=== PATIENT | female | born 1980 | race Caucasian/White ===

== ENCOUNTER 2016-09-01 07:02 | Day surgery (SDC) | payer BC, OTHER ==
[~2016-09-01 07:02] MED LIST: Lactated Ringers 1,000 ML IV SCH; Lidocaine 1%/Sod Bicarbonate in NS 8.4% 1 ML Syringe IV PRN; Sodium Chloride 0.9% 10 ML Syringe FLUSH PRN
[2016-09-01] MEDS ORDERED: Propofol 200 MG/20 ML SDV ONE (07:43)
[2016-09-01] MEDS ORDERED: fentaNYL 100 MCG/2 ML SDV ONE (07:44)
[2016-09-01] MEDS ORDERED: Midazolam 1 MG/ML 2 ML SDV ONE (07:44)
--- NOTE | 2016-09-01 07:47 | PCM.PREANE ---
Preanesthetic Assessment - Procedure Proposed Procedure: Diagnostic Colonoscopy - Anesthesia/Transfusion/Family Hx Anesthesia History: Prior Anesthesia Without Reaction Family History of Anesthesia Reaction: No - Review of Systems General: No Symptoms Pulmonary: No Symptoms Cardiovascular: No Symptoms Gastrointestinal: No symptoms Neurological: No Symptoms Other: Reports: None - Physical Assessment NPO Status Date: 08/31/16 NPO Status Time: 22:00 O2 Sat by Pulse Oximetry: 99 Respiratory Rate: 16 Vital Signs: Last Vital Signs Temp 36.8 C 09/01/16 07:10 Pulse 71 09/01/16 07:10 Resp 16 09/01/16 07:10 BP 112/82 09/01/16 07:10 Pulse Ox 99 09/01/16 07:10 Height: 1.7 m Weight: 54.431 kg ASA Class: 2 Mental Status: Alert & Oriented x3 Airway Class: Mallampati = 2 Dentition: Reports: Dentures (upper), Edentulous, Broken Tooth/Teeth (very poor dentition lower), Missing Tooth/Teeth, Caries Thyro-Mental Finger Breadths: 3 Mouth Opening Finger Breadths: 3 ROM/Head Extension: Full Lungs: Clear to auscultation, Normal respiratory effort Cardiovascular: Regular Rate, Regular Rhythm, No Murmurs - Lab Values: Labs from [facility] CMP is essentially normal except for a mildly elevated glucose at 105mg/dl. unknown if labs were fasting CBC WBC - 8.1 Hgb - 16.4 HCT - 48.9 PLT - 166 TSH - 1.099 - Allergies Allergies/Adverse Reactions: Allergies Allergy/AdvReac Type Severity Reaction Status Date / Time amoxicillin Allergy Itching Verified 08/31/16 13:09 Penicillins Allergy Itching Verified 08/31/16 13:09 venom-honey bee Allergy Swelling Verified 08/31/16 13:09 [bee venom (honey bee)] - Blood Blood Available: No - Anesthesia Plan Beta Michael: Metoprolol Med Last Dose Date: 09/01/16 Med Last Dose Time: 06:00 - Acknowledgements Anesthesia Type Planned: MAC Pt an Appropriate Candidate for the Planned Anesthesia: Yes Alternatives and Risks of Anesthesia Discussed w Pt/Guardian: Yes Pt/Guardian Understands and Agrees with Anesthesia Plan: Yes PreAnesthesia Questionnaire Other HEENT History: upper denture Cardiovascular History: Reports: None Respiratory History: Reports: None Gastrointestinal History: Reports: Chronic Constipation, Chronic Diarrhea, GERD Other Gastrointestinal History: rectal prolapse, abdominal pain,ventral hernia Genitourinary History: Reports: Other (See Below) Other Genitourinary History: complex ovarian cyst, pelvic floor dysfunction 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: , Other (See Below) Other OB/BYN History: Musculoskeletal History: Reports: Arthritis, Osteoarthritis, Other (See Below) Neurological History: Reports: None Psychiatric History: Reports: Anxiety, Depression Endocrine/Metabolic History: Reports: Other (See Below) Other Endocrine/Metabolic History: adrenal incidentaloma Hematologic History: Reports: None Immunologic History: Reports: None Oncologic (Cancer) History: Reports: None Dermatologic History: Reports: None - Past Surgical History Head Surgeries/Procedures: Reports: None HEENT Surgical History: Reports: Tonsillectomy, Other (See Below) Other HEENT Surgeries/Procedures: myringotomy GI Surgical History: Reports: Other (See Below) Other GI Surgeries/Procedures: incisional hernia repair Female Surgical History: Reports: Section, Hysterectomy, Oophorectomy Other Musculoskeletal Surgeries/Procedures:: neck surgery-disk replacement C5-C5 - SUBSTANCE USE Smoking Status *Q: Current Every Day Smoker (1/2 ppd down from 1-2 ppd for 25 yrs) Tobacco Use Within Last Twelve Months: Cigarettes Second Hand Smoke Exposure: Yes Days Per Week of Alcohol Use: 0 Recreational Drug Use History: No - HOME MEDS Home Medications: Home Meds Cyanocobalamin (Vitamin B-12) [B-12] 2,500 mcg SL DAILY 02/09/15 [History] Docusate Sodium [Colace] 100 mg PO BID #50 cap 02/11/15 [Rx] Ibuprofen [Motrin] 200 - 600 mg PO Q6H PRN #50 tablet 02/11/15 [Rx] LORazepam [LORazepam] 0.5 mg PO BID PRN 08/31/16 [History] Metoprolol Tartrate [Metoprolol Tartrate] 25 mg PO DAILY 08/31/16 [History] Sertraline HCl [Sertraline HCl] 50 mg PO DAILY 08/31/16 [History] - CURRENT (IN HOUSE) MEDS Current Meds: Current Medications Lactated Ringer's (Ringers, Lactated) 1,000 mls @ 125 mls/hr IV ASDIRECTED MOY Last Admin: 09/01/16 07:25 Dose: 125 mls/hr Lidocaine/Sodium Bicarbonate (Buffered Lidocaine 1% In Ns 8.4%) 0.25 ml IV ONETIME PRN PRN Reason: Prior to IV Start Last Admin: 09/01/16 07:25 Dose: 0.25 ml Sodium Chloride (Saline Flush) 10 ml FLUSH ASDIRECTED PRN PRN Reason: Keep Vein Open Discontinued Medications Fentanyl (Sublimaze) Confirm Administered Dose 100 mcg .ROUTE .STK-MED ONE Stop: 09/01/16 07:45 Midazolam HCl (Versed 1 Mg/Ml) Confirm Administered Dose 2 mg .ROUTE .STK-MED ONE Stop: 09/01/16 07:45 Propofol (Diprivan 20 Ml) Confirm Administered Dose 200 mg .ROUTE .STK-MED ONE Stop: 09/01/16 07:44
[2016-09-01 08:40] VITALS: BP 118/69
--- NOTE | 2016-09-01 08:43 | PCM.OPNOTE ---
- General Post-Op/Procedure Note Date of Surgery/Procedure: 09/01/16 Operative Procedure(s): Colonoscopy with rectal polypectomy Findings: 5 mm rectal polyp, no mass lesions seen Pre Op Diagnosis: 1. Colon inertia. 2. Rectal prolapse Post-Op Diagnosis: 1. Diminutive rectal polyp Anesthesia Technique: MAC, Moderate sedation Primary Surgeon: Elbert Blank Pathology: Small rectal polyp EBL in mLs: 0 Complications: None Condition: Good Free Text/Narrative:: After adequate IV sedation and analgesia the patient placed on her left side. Perianal inspection revealed no prolapse. Digital rectal examination revealed a slightly patulous anus. A lubricated colonoscope was then inserted into the rectum and advanced to the cecum without difficulty. The colon was capacious. The bowel preparation was excellent. The cecum, right colon, transverse and descending colons were endoscopically normal with no mass lesions or inflammatory changes seen. The sigmoid was unremarkable as well. Within the proximal rectum there was a 5 mm polyp which I removed with cold forceps. In the retroflexed view there was no rectal pathology seen. Air was removed as I finished the procedure which she tolerated well. Tray Drier Operator photographs were taken for the patient and for the record.
--- NOTE | 2016-09-01 08:50 | PCM48HPAN ---
Post Anesthesia Note - EVALUATION WITHIN 48HRS OF ANESTHETIC Vital Signs in Normal Range: Yes Patient Participated in Evaluation: Yes Respiratory Function Stable: Yes Airway Patent: Yes Cardiovascular Function Stable: Yes Hydration Status Stable: Yes Pain Control Satisfactory: Yes Nausea and Vomiting Control Satisfactory: Yes Mental Status Recovered: Yes
== END 2016-09-01 08:55 | disposition home or self-care (01) ==
LOC: JD.SDS 07:02
PROVIDERS: ATTEND Surgery
PROC: 0DBP8ZZ Excision of Rectum, Via Natural or Artificial Opening Endoscopic (ICD-10-PCS; principal; 2016-09-01)
DX: K62.1 Rectal polyp (principal); K62.3 Rectal prolapse; Z88.0 Allergy status to penicillin; Z91.030 Bee allergy status; M19.90 Unspecified osteoarthritis, unspecified site; F41.9 Anxiety disorder, unspecified; F32.9 Major depressive disorder, single episode, unspecified; F17.210 Nicotine dependence, cigarettes, uncomplicated; M81.0 Age-related osteoporosis without current pathological fracture; M17.0 Bilateral primary osteoarthritis of knee; Z98.1 Arthrodesis status; Z90.89 Acquired absence of other organs; Z90.710 Acquired absence of both cervix and uterus; Z90.79 Acquired absence of other genital organ(s); Z98.890 Other specified postprocedural states; Z79.899 Other long term (current) drug therapy
CPT/HCPCS: 45380; J3010; J7120; 00810; J2250; J2704

== ENCOUNTER 2016-09-04 07:17 | Inpatient (IN) | payer BC, OTHER ==
[~2016-09-04 07:17] MED LIST changes: +Bupivacaine 0.5%/EPINEPHrine 1:200,000 50 ML MDV ONE; +Lidocaine 1% with EPINEPHrine 1:100,000 20 ML MDV ONE; -Lidocaine 1%/Sod Bicarbonate in NS 8.4% 1 ML Syringe IV PRN; +Lidocaine 1%/Sod Bicarbonate in NS 8.4% 1 ML Syringe PRN
[2016-09-04] MEDS ORDERED: Propofol 200 MG/20 ML SDV ONE (07:36)
[2016-09-04] MEDS ORDERED: Lidocaine 1% 4 ML ONE ×2 (07:36→07:50)
[2016-09-04] MEDS ORDERED: fentaNYL 250 MCG/5 ML SDV ONE (07:36)
[2016-09-04] MEDS ORDERED: Midazolam 1 MG/ML 2 ML SDV ONE (07:36)
[2016-09-04] MEDS ORDERED: Rocuronium 50 MG/5 ML Vial ONE (07:50)
--- NOTE | 2016-09-04 07:59 | PCM.PREANE ---
Preanesthetic Assessment - Procedure Proposed Procedure: rectopexy with possible sigmoid resection, open david, open umbilical hernia repair - Anesthesia/Transfusion/Family Hx Anesthesia History: Prior Anesthesia Without Reaction Family History of Anesthesia Reaction: No Transfusion History: No Prior Transfusion(s) Intubation History: Unknown - Review of Systems General: No Symptoms Pulmonary: No Symptoms Cardiovascular: No Symptoms Gastrointestinal: No symptoms Neurological: No Symptoms Other: Reports: None - Physical Assessment NPO Status Date: 09/03/16 NPO Status Time: 13:00 Pulse: 69 O2 Sat by Pulse Oximetry: 99 Respiratory Rate: 16 Blood Pressure: 126/82 Temperature: 36.7 C Height: 1.7 m Weight: 54.431 kg ASA Class: 2 Mental Status: Alert & Oriented x3 Airway Class: Mallampati = 1 Dentition: Reports: Dentures (upper dentures ), Missing Tooth/Teeth, Caries ( poor dentition ) Thyro-Mental Finger Breadths: 3 Mouth Opening Finger Breadths: 5 ROM/Head Extension: Full Lungs: Clear to auscultation, Normal respiratory effort Cardiovascular: Regular Rate, Regular Rhythm - Lab Values: reviewed - Allergies Allergies/Adverse Reactions: Allergies Allergy/AdvReac Type Severity Reaction Status Date / Time amoxicillin Allergy Itching Verified 09/03/16 16:14 Penicillins Allergy Itching Verified 09/03/16 16:14 venom-honey bee Allergy Swelling Verified 09/03/16 16:14 [bee venom (honey bee)] - Blood Blood Available: Yes - Anesthesia Plan Pre-Op Medication Ordered: None Beta Michael: Metoprolol Med Last Dose Date: 09/04/16 Med Last Dose Time: 06:00 - Acknowledgements Anesthesia Type Planned: General Anesthesia Pt an Appropriate Candidate for the Planned Anesthesia: Yes Alternatives and Risks of Anesthesia Discussed w Pt/Guardian: Yes Pt/Guardian Understands and Agrees with Anesthesia Plan: Yes PreAnesthesia Questionnaire Other HEENT History: upper denture Cardiovascular History: Reports: None Other Cardiovascular History: tachycardia Respiratory History: Reports: None Gastrointestinal History: Reports: Chronic Constipation, Chronic Diarrhea, GERD Other Gastrointestinal History: ventral hernia, abdominal pain, maldigestion syndrome Genitourinary History: Reports: Other (See Below) Other Genitourinary History: rectal prolapse, repair of vaginal cuff 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: , Other (See Below) Other OB/BYN History: ovarian cyst, pelvic jaxson dysfunction, rectal prolapse, hysterectomy in past Musculoskeletal History: Reports: Arthritis, Osteoarthritis, Osteoporosis Other Musculoskeletal History: R knee pain Neurological History: Reports: None Psychiatric History: Reports: Anxiety, Depression Endocrine/Metabolic History: Reports: Other (See Below) Other Endocrine/Metabolic History: adrenal incidentaloma Hematologic History: Reports: None Immunologic History: Reports: None Oncologic (Cancer) History: Reports: None Dermatologic History: Reports: None - Past Surgical History Head Surgeries/Procedures: Reports: None HEENT Surgical History: Reports: Tonsillectomy Cardiovascular Surgical History: Reports: None GI Surgical History: Reports: Colonoscopy, EGD Female Surgical History: Reports: Section, Hysterectomy, Oophorectomy Other Musculoskeletal Surgeries/Procedures:: neck surgery-disk replacement - SUBSTANCE USE Smoking Status *Q: Current Every Day Smoker Tobacco Use Within Last Twelve Months: Cigarettes (1/2 pack) Second Hand Smoke Exposure: Yes Days Per Week of Alcohol Use: 0 Recreational Drug Use History: No - HOME MEDS Home Medications: Home Meds Cyanocobalamin (Vitamin B-12) [B-12] 2,500 mcg SL DAILY 02/09/15 [History] Docusate Sodium [Colace] 100 mg PO BID #50 cap 02/11/15 [Rx] Ibuprofen [Motrin] 200 - 600 mg PO Q6H PRN #50 tablet 02/11/15 [Rx] LORazepam 0.5 mg PO BID PRN 08/31/16 [History] Metoprolol Tartrate 12.5 mg PO BID 08/31/16 [History] Sertraline HCl 50 mg PO DAILY 08/31/16 [History] Calcium Carbonate [Tums Ultra] 1,250 mg PO DAILY 09/04/16 [History] EPINEPHrine [Epipen] 0.3 mg IM ASDIRECTED PRN 09/04/16 [History] Multivitamin [Multivitamins] 1 cap PO DAILY 09/04/16 [History] Sennosides [Laxative] 25 mg PO BID 09/04/16 [History] - CURRENT (IN HOUSE) MEDS Current Meds: Current Medications Lactated Ringer's (Ringers, Lactated) 1,000 mls @ 125 mls/hr IV ASDIRECTED MOY Stop: 09/04/16 23:00 Lidocaine/Sodium Bicarbonate (Buffered Lidocaine 1% In Ns 8.4%) 0.25 ml .XX ONETIME PRN PRN Reason: Prior to IV Start Stop: 09/04/16 18:00 Sodium Chloride (Saline Flush) 10 ml FLUSH ASDIRECTED PRN PRN Reason: Keep Vein Open Stop: 09/04/16 18:00 Discontinued Medications Bupivacaine HCl/Epinephrine Bitart (Marcaine 0.5%/Epinephrine 1:200,000) Confirm Administered Dose 50 ml .ROUTE .STK-MED ONE Stop: 09/04/16 07:12 Fentanyl (Sublimaze) Confirm Administered Dose 250 mcg .ROUTE .STK-MED ONE Stop: 09/04/16 07:37 Lidocaine HCl (Xylocaine-Mpf 1%) Confirm Administered Dose 4 mls @ as directed .ROUTE .STK-MED ONE Stop: 09/04/16 07:37 Lidocaine HCl (Xylocaine-Mpf 1%) Confirm Administered Dose 4 mls @ as directed .ROUTE .STK-MED ONE Stop: 09/04/16 07:51 Lidocaine/Epinephrine (Xylocaine 1% With Epinephrine 1:100,000) Confirm Administered Dose 20 ml .ROUTE .STK-MED ONE Stop: 09/04/16 07:12 Midazolam HCl (Versed 1 Mg/Ml) Confirm Administered Dose 2 mg .ROUTE .STK-MED ONE Stop: 09/04/16 07:37 Propofol (Diprivan 20 Ml) Confirm Administered Dose 800 mg .ROUTE .STK-MED ONE Stop: 09/04/16 07:37 Rocuronium [place] (Zemuron) Confirm Administered Dose 50 mg .ROUTE .STK-MED ONE Stop: 09/04/16 07:51
[2016-09-04] MEDS ORDERED: cefOXitin 2 GM in Premix Bag 1 BAG IV ONE (08:15)
[2016-09-04] MEDS ORDERED: ePHEDrine/Normal Saline 25 MG/5 ML Syringe ONE (08:40)
[2016-09-04] MEDS ORDERED: Ondansetron 4 MG/2 ML SDV IVPUSH PRN ×2 (08:42→12:24)
[2016-09-04] MEDS ORDERED: diphenhydrAMINE 50 MG/ML SDV IVPUSH PRN ×2 (08:42→12:24)
[2016-09-04] MEDS ORDERED: HYDROmorphone 1 MG/ML Syringe ONE ×2 (08:47→10:48)
[2016-09-04] MEDS ORDERED: Lactated Ringers 1,000 ML ONE ×2 (08:55→10:46)
[2016-09-04] MEDS ORDERED: fentaNYL 100 MCG/2 ML SDV IVPUSH PRN ×2 (09:00→12:24)
[2016-09-04] MEDS ORDERED: HYDROmorphone 0.5 MG/0.5 ML Syringe IVPUSH PRN (09:00)
[2016-09-04] MEDS ORDERED: Ketamine 500 mg/10 ML MDV ONE (09:02)
[2016-09-04] MEDS ORDERED: Dexamethasone 4 MG/ML 5 ML MDV ONE (09:30)
[2016-09-04] MEDS ORDERED: Ketorolac 30 MG/ML SDV ONE (09:30)
[2016-09-04] MEDS ORDERED: Ondansetron 4 MG/2 ML SDV ONE (09:30)
[2016-09-04] MEDS ORDERED: Neostigmine Methylsulfate 1 MG/ML 5 ML Syringe ONE (10:48)
[2016-09-04] MEDS ORDERED: Ketorolac 30 MG/ML SDV IM PRN ×2 (11:55→16:00)
--- NOTE | 2016-09-04 12:01 | PCM.OPNOTE ---
- General Post-Op/Procedure Note Date of Surgery/Procedure: 09/04/16 Operative Procedure(s): 1. rectopexy. 2. sigmoid resection with [id number] stapled anastomosis. 3. cholecytectomy. 4. repair of an umbilical hernia Findings: redundant sigmoid colon, 0.5 cm umbilical defect, 4 cm right ovarian cyst, normal-appearing gallbladder with no stones Pre Op Diagnosis: 1. chronic constipation. 2. rectal prolapse. 3. biliary colic secondary to cholelithiasis. 4. symptomatic umbilical hernia Post-Op Diagnosis: Same Anesthesia Technique: General ET tube Primary Surgeon: Elbert Blank Pathology: 1. Sigmoid colon 2. Gallbladder and contents EBL in mLs: 25 Complications: None Condition: Good Free Text/Narrative:: After adequate general endotracheal tube anesthesia was obtained the patient's abdomen was prepped and draped in the usual fashion for aN abdominal/pelvic procedure. The midline incision was made with a 10 blade from just above the symphysis pubis to the midepigastrium. The Balfor retractor was placed. She was placed in Trendelenburg. The small bowel was packed into the upper abdomen. The sigmoid colon was floppy. It extended into the right lower quadrant. There was a right ovarian cyst which was previously known. The patient is status post a hysterectomy and so there were some adhesions within the pelvis. Especially between the right ovarian cyst and the peritoneum. The sigmoid colon was mobilized by taking down the white line of Toldt along its medial aspect. The left ureter was identified and displaced. I entered the retrorectal space at the sacral promontory with Metzenbaums scissors. I then dissected the mesorectum down to the pelvic floor dividing the left lateral ligaments. I then incised the peritoneum along the right side of the sigmoid mesentery. I dissected down to the pelvic floor along the right side after displacing the right ureter. The posterior rectal ligament was divided as well. I incised the peritoneum anteriorly. I then the anterior rectum away from the vagina. This dissection was also taken down to the pelvic floor and at this point I had a circumferential mobilization of the rectum. The linear stapler was used to transect the sigmoid colon in 2 areas. I then performed a side-to- side stapled anastomosis, with handsewn closure of the staple gun insertion sites using 3-0 running Vicryl and interrupted 3-0 silk Lemberts. I then tacked the rectal peritoneum and mesorectum to the sacral promontory with 2-0 Prolene on the left side and I performed the tacking with a 2-0 Prolene on the right side. There was a careful curve of the rectum into the sacral hollow. There was one small vein between the vagina and the anterior rectum which required a clip. Otherwise the dissection was essentially bloodless. The patient was then placed in reverse Trendelenburg. I had to extend the midline incision another 3 cm to remove the gallbladder. The dome of the gallbladder and Marquez's pouch was grasped with clamps. I used a tonsil to dissect out the cystic duct and cystic artery. These structures were clipped in continuity with 5 mm clips and then divided with scissors. I took the gallbladder down in a retrograde fashion with cautery. I spilled bile from the gallbladder when the specimen clip fell off. I irrigated out the right upper quadrant with normal saline after this. There was a 5 mm umbilical defect containing preperitoneal fat and an Ethibond suture. I excised the old Ethibond suture and closed the small defect when I closed the abdominal incision using a running 0 PDS. The abdominal closure was then performed after copious irrigation of the pelvis with 2 L of saline in the abdomen as well. [place] were used for the skin closure. Gauze and Microfoam tape were used with dressing. The sponge stick which was placed in the vagina before the case was removed. The OG tube was removed. I left a Rae catheter in place to be removed on the floor. She tolerated the procedure well there were no complications.
--- NOTE | 2016-09-04 12:22 | PCM.POSTAN ---
POST ANESTHESIA ASSESSMENT - MENTAL STATUS Mental Status: alert - VITAL SIGNS Pulse Rate: 93 SaO2: 95 Resp Rate: 13 Blood Pressure: 120/74 Temperature: 36.6 C - RESPIRATORY Respiratory Status: respiratory rate WNL, airway patent, O2 saturation stable - CARDIOVASCULAR CV Status: pulse rate WNL, blood pressure stable - GASTROINTESTINAL GI Status: no symptoms - PAIN Pain Score: 0 (resting comfortably ) - POST OP HYDRATION Hydration Status: adequate & stable
[2016-09-04] MEDS: HYDROmorphone 0.5 MG/0.5 ML Syringe IVPUSH PRN ×6 (12:26→23:08)
[2016-09-04] MEDS: Lactated Ringers 1,000 ML IV SCH ×2 (13:34→20:43)
[2016-09-04] MEDS: cefOXitin 2 GM in Premix Bag 1 BAG IV SCH ×2 (14:24→20:44)
[2016-09-04] MEDS ORDERED: Pneumococcal Polyvalent-23 Vaccine 0.5 ML SDV IM ONE (14:51)
[2016-09-04] MEDS: Sertraline 50 MG Tab PO SCH (16:39)
[2016-09-04] MEDS: Ketorolac 30 MG/ML SDV IVPUSH PRN (17:45)
[2016-09-04] MEDS: Ondansetron 4 MG/2 ML SDV IVPUSH PRN (17:57)
[2016-09-04] MEDS: Acetaminophen/oxyCODONE 325-5 MG Tab PO PRN ×2 (18:06→20:58)
[2016-09-04] MEDS: Metoprolol Tartrate 25 MG Tab PO SCH (21:00)
[2016-09-04] MEDS ORDERED: Zolpidem 5 MG Tab PO PRN (21:00)
[2016-09-04] MEDS: LORazepam 0.5 MG Tab PO PRN (23:09)
[2016-09-05] MEDS: Acetaminophen/oxyCODONE 325-5 MG Tab PO PRN ×5 (00:32→16:34)
[2016-09-05] MEDS: Ketorolac 30 MG/ML SDV IVPUSH PRN ×2 (00:33→06:41)
[2016-09-05] MEDS: cefOXitin 2 GM in Premix Bag 1 BAG IV SCH ×2 (04:16→08:24)
[2016-09-05] MEDS: Lactated Ringers 1,000 ML IV SCH ×2 (04:16→13:01)
[2016-09-05] MEDS: HYDROmorphone 0.5 MG/0.5 ML Syringe IVPUSH PRN ×4 (06:42→11:57)
[2016-09-05] MEDS: Sertraline 50 MG Tab PO SCH (08:17)
[2016-09-05] MEDS: Metoprolol Tartrate 25 MG Tab PO SCH ×2 (08:18→21:56)
--- NOTE | 2016-09-05 08:29 | PCM48HPAN ---
Post Anesthesia Note - EVALUATION WITHIN 48HRS OF ANESTHETIC Vital Signs in Normal Range: Yes Patient Participated in Evaluation: Yes Respiratory Function Stable: Yes Airway Patent: Yes Cardiovascular Function Stable: Yes Hydration Status Stable: Yes Pain Control Satisfactory: Yes (Pt states her pain level is too high) Nausea and Vomiting Control Satisfactory: Yes Mental Status Recovered: Yes - COMMENTS/OBSERVATIONS Free Text/Narrative:: Pt is receiving percocet Q 4 hours and Dilaudid IV for breakthrough pain, but continues to feeel pain level is too high. encouraged pt to discuss with Dr Blank who is caring for her. Reviewed pain med usage with nurses and appears appropriate. no fever/chills. ambulating. taking clears. no n/v
--- NOTE | 2016-09-05 10:19 | PCM.SURGPN ---
- General Info Date of Service: 09/05/16 POD#: 1 Functional Status: Reports: pain controlled, ambulating, incentive spirometry - Review of Systems Gastrointestinal: Reports: Abdominal pain (Incisional and right lower quadrant) - Patient Data Vitals - most recent: Last Vital Signs Temp 36.7 C 09/05/16 08:21 Pulse 70 09/05/16 08:21 Resp 16 09/05/16 08:21 BP 110/71 09/05/16 08:21 Pulse Ox 92 L 09/05/16 08:21 Weight - most recent: 58.769 kg I&O - last 24 hours: Intake & Output 09/04/16 09/05/16 09/05/16 22:59 06:59 14:59 Intake Total 500 1835 Output Total 350 1000 Balance 150 835 Med Orders - Current: Current Medications Hydromorphone HCl (Dilaudid) 0.5 mg IVPUSH Q2H PRN PRN Reason: Pain (severe 7-10) Last Admin: 09/05/16 09:03 Dose: 0.5 mg Lactated Ringer's (Ringers, Lactated) 1,000 mls @ 125 mls/hr IV ASDIRECTED [facility] Last Admin: 09/05/16 04:16 Dose: 125 mls/hr Ketorolac Tromethamine (Toradol) 30 mg IVPUSH Q6H PRN PRN Reason: Pain (moderate 4-6) Stop: 09/05/16 10:31 Last Admin: 09/05/16 06:41 Dose: 30 mg Lorazepam (Ativan) 0.5 mg PO BID PRN PRN Reason: Anxiety Last Admin: 09/04/16 23:09 Dose: 0.5 mg Metoprolol Tartrate (Lopressor) 12.5 mg PO BID [facility] Last Admin: 09/05/16 08:18 Dose: 12.5 mg Ondansetron HCl (Zofran) 4 mg IVPUSH Q6H PRN PRN Reason: Nausea/Vomiting Last Admin: 09/04/16 17:57 Dose: 4 mg Oxycodone/Acetaminophen (Percocet 325-5 Mg) 2 tab PO Q4H PRN PRN Reason: Pain (moderate 4-6) Last Admin: 09/05/16 08:22 Dose: 2 tab Sertraline HCl (Zoloft) 50 mg PO DAILY [facility] Last Admin: 09/05/16 08:17 Dose: 50 mg Zolpidem Tartrate (Ambien) 5 mg PO BEDTIME PRN PRN Reason: Insomnia Discontinued Medications Bupivacaine HCl/Epinephrine Bitart (Marcaine 0.5%/Epinephrine 1:200,000) Confirm Administered Dose 50 ml .ROUTE .STK-MED ONE Stop: 09/04/16 07:12 Dexamethasone (Dexamethasone) Confirm Administered Dose 20 mg .ROUTE .STK-MED ONE Stop: 09/04/16 09:31 Diphenhydramine HCl (Benadryl) 12.5 mg IVPUSH Q6H PRN PRN Reason: pruritis Stop: 09/04/16 12:00 Diphenhydramine HCl (Benadryl) 25 mg IVPUSH Q6H PRN PRN Reason: pruritis Stop: 09/04/16 15:00 Ephedrine Sulfate (Ephedrine In Ns) Confirm Administered Dose 25 mg .ROUTE .STK- MED ONE Stop: 09/04/16 08:41 Fentanyl (Sublimaze) Confirm Administered Dose 250 mcg .ROUTE .STK-MED ONE Stop: 09/04/16 07:37 Fentanyl (Sublimaze) 50 mcg IVPUSH Q5M PRN PRN Reason: Pain Stop: 09/04/16 12:00 Fentanyl (Sublimaze) 50 mcg IVPUSH Q5M PRN PRN Reason: Pain Stop: 09/04/16 15:00 Glycopyrrolate () Confirm Administered Dose 1 mg .ROUTE .STK-MED ONE Stop: 09/04/16 10:49 Hydromorphone HCl (Dilaudid) Confirm Administered Dose 1 mg .ROUTE .STK-MED ONE Stop: 09/04/16 08:48 Hydromorphone HCl (Dilaudid) 0.5 mg IVPUSH Q15M PRN PRN Reason: severe pain Stop: 09/04/16 09:16 Hydromorphone HCl (Dilaudid) Confirm Administered Dose 1 mg .ROUTE .STK-MED ONE Stop: 09/04/16 10:49 Hydromorphone HCl (Dilaudid) 0.5 mg IVPUSH Q15M PRN PRN Reason: severe pain Stop: 09/04/16 12:40 Last Admin: 09/04/16 12:54 Dose: 0.5 mg Lactated Ringer's (Ringers, Lactated) 1,000 mls @ 125 mls/hr IV ASDIRECTED [facility] Stop: 09/04/16 23:00 Last Admin: 09/04/16 07:40 Dose: 125 mls/hr Lidocaine HCl (Xylocaine-Mpf 1%) Confirm Administered Dose 4 mls @ as directed .ROUTE .STK-MED ONE Stop: 09/04/16 07:37 Lidocaine HCl (Xylocaine-Mpf 1%) Confirm Administered Dose 4 mls @ as directed .ROUTE .STK-MED ONE Stop: 09/04/16 07:51 Cefoxitin Sodium 2 gm/ Premix 50 mls @ 100 mls/hr IV ONETIME ONE Stop: 09/04/16 08:44 Last Admin: 09/04/16 08:05 Dose: 100 mls/hr Lactated Ringer's (Ringers, Lactated) Confirm Administered Dose 1,000 mls @ as directed .ROUTE .STK-MED ONE Stop: 09/04/16 08:56 Acetaminophen (Ofirmev) 100 mls @ 400 mls/hr IV NOW ONE Stop: 09/04/16 09:14 Last Admin: 09/04/16 08:53 Dose: 400 mls/hr Lactated Ringer's (Ringers, Lactated) Confirm Administered Dose 1,000 mls @ as directed .ROUTE .STK-MED ONE Stop: 09/04/16 10:47 Cefoxitin Sodium 2 gm/ Premix 50 mls @ 100 mls/hr IV Q6H [facility] Stop: 09/05/16 08:29 Last Admin: 09/05/16 08:24 Dose: 100 mls/hr Ketamine HCl (Ketalar) Confirm Administered Dose 500 mg .ROUTE .STK-MED ONE Stop: 09/04/16 09:03 Ketorolac Tromethamine (Toradol) Confirm Administered Dose 30 mg .ROUTE .STK- MED ONE Stop: 09/04/16 09:31 Ketorolac Tromethamine (Toradol) 30 mg IM Q6H PRN PRN Reason: Pain Stop: 09/05/16 06:01 Lidocaine/Epinephrine (Xylocaine 1% With Epinephrine 1:100,000) Confirm Administered Dose 20 ml .ROUTE .STK-MED ONE Stop: 09/04/16 07:12 Lidocaine/Sodium Bicarbonate (Buffered Lidocaine 1% In Ns 8.4%) 0.25 ml .XX ONETIME PRN PRN Reason: Prior to IV Start Stop: 09/04/16 18:00 Last Admin: 09/04/16 07:40 Dose: 0.25 ml Midazolam HCl (Versed 1 Mg/Ml) Confirm Administered Dose 2 mg .ROUTE .STK-MED ONE Stop: 09/04/16 07:37 Neostigmine Methylsulfate (Neostigmine) Confirm Administered Dose 5 mg .ROUTE .STK-MED ONE Stop: 09/04/16 10:49 Ondansetron HCl (Zofran) 4 mg IVPUSH ONETIME PRN PRN Reason: Nausea/Vomiting Stop: 09/04/16 12:00 Ondansetron HCl (Zofran) Confirm Administered Dose 4 mg .ROUTE .STK-MED ONE Stop: 09/04/16 09:31 Ondansetron HCl (Zofran) 4 mg IVPUSH ONETIME PRN PRN Reason: Nausea/Vomiting Stop: 09/04/16 15:00 Pneumococcal Polyvalent Vaccine (Pneumovax 23) 0.5 ml IM .ONCE ONE Stop: 09/04/16 14:52 Propofol (Diprivan 20 Ml) Confirm Administered Dose 800 mg .ROUTE .STK-MED ONE Stop: 09/04/16 07:37 Rocuronium [place] (Zemuron) Confirm Administered Dose 50 mg .ROUTE .STK-MED ONE Stop: 09/04/16 07:51 Sodium Chloride (Saline Flush) 10 ml FLUSH ASDIRECTED PRN PRN Reason: Keep Vein Open Stop: 09/04/16 18:00 - Exam Wound/Incisions: dressing dry and intact - Problem List Review Problem List Initiated/Reviewed/Updated: Yes - My Orders Last 24 Hours: Active Orders 24 hr Category Date Time Status Patient Status [ADT] Routine ADT 09/04/16 11:47 Active Ambulate [RC] 08,17 Care 09/04/16 11:51 Active Antiembolic Devices [RC] DAILY Care 09/04/16 11:57 Active Head of Bed Elevation [RC] ASDIRECTED Care 09/04/16 11:51 Active Notify Provider Vital Signs [RC] PRN Care 09/04/16 11:52 Active Oxygen Therapy [RC] PRN Care 09/04/16 11:47 Active RT Incentive Spirometry [RC] ASDIRECTED Care 09/04/16 11:47 Active Up ad Khushi [RC] ASDIRECTED Care 09/04/16 11:47 Active Up to Chair [RC] ASDIRECTED Care 09/04/16 11:47 Active Urinary Catheter Removal [RC] Per Unit Routine Care 09/05/16 22:00 Active VTE/DVT Education [RC] DAILY Care 09/04/16 11:57 Active Vital Signs [RC] 21,03,09,15 Care 09/04/16 11:47 Active Clear Liquid Diet [DIET] Diet 09/05/16 Breakfast Active Acetaminophen/oxyCODONE [Percocet 325-5 MG] Med 09/04/16 11:55 Active 2 tab PO Q4H PRN HYDROmorphone [Dilaudid] Med 09/04/16 11:55 Active 0.5 mg IVPUSH Q2H PRN Ketorolac [Toradol] Med 09/04/16 16:30 Active 30 mg IVPUSH Q6H PRN LORazepam [Ativan] Med 09/04/16 21:00 Active 0.5 mg PO BID PRN Lactated Ringers [Ringers, Lactated] 1,000 ml Med 09/04/16 12:00 Active IV ASDIRECTED Metoprolol Tartrate [Lopressor] Med 09/04/16 21:00 Active 12.5 mg PO BID Ondansetron [Zofran] Med 09/04/16 11:55 Active 4 mg IVPUSH Q6H PRN Sertraline [Zoloft] Med 09/04/16 13:00 Active 50 mg PO DAILY Zolpidem [Ambien] Med 09/04/16 21:00 Active 5 mg PO BEDTIME PRN Abdominal Binder [OM.PC] Per Unit Routine Oth 09/04/16 11:52 Ordered DVT/VTE Prophylaxis Reflex [OM.PC] Routine Oth 09/04/16 11:55 Ordered SCD [Sequential Compression Device] [OM.PC] Routine Oth 09/05/16 06:45 Ordered Resuscitation Status Routine Resus Stat 09/04/16 11:47 Ordered Medication Orders Hydromorphone HCl (Dilaudid) 0.5 mg IVPUSH Q2H PRN PRN Reason: Pain (severe 7-10) Last Admin: 09/05/16 09:03 Dose: 0.5 mg Admin: 09/05/16 06:42 Dose: 0.5 mg Admin: 09/04/16 23:08 Dose: 0.5 mg Admin: 09/04/16 19:09 Dose: 0.5 mg Admin: 09/04/16 16:30 Dose: 0.5 mg Admin: 09/04/16 14:18 Dose: 0.5 mg Lactated Ringer's (Ringers, Lactated) 1,000 mls @ 125 mls/hr IV ASDIRECTED [facility] Last Admin: 09/05/16 04:16 Dose: 125 mls/hr Infusion: 09/05/16 04:16 Dose: 125 mls/hr Admin: 09/04/16 20:43 Dose: 125 mls/hr Infusion: 09/04/16 20:43 Dose: 125 mls/hr Admin: 09/04/16 13:34 Dose: 125 mls/hr Ketorolac Tromethamine (Toradol) 30 mg IVPUSH Q6H PRN PRN Reason: Pain (moderate 4-6) Stop: 09/05/16 10:31 Last Admin: 09/05/16 06:41 Dose: 30 mg Admin: 09/05/16 00:33 Dose: 30 mg Admin: 09/04/16 17:45 Dose: 30 mg Lorazepam (Ativan) 0.5 mg PO BID PRN PRN Reason: Anxiety Last Admin: 09/04/16 23:09 Dose: 0.5 mg Metoprolol Tartrate (Lopressor) 12.5 mg PO BID [facility] Last Admin: 09/05/16 08:18 Dose: 12.5 mg Admin: 09/04/16 21:00 Dose: 12.5 mg Ondansetron HCl (Zofran) 4 mg IVPUSH Q6H PRN PRN Reason: Nausea/Vomiting Last Admin: 09/04/16 17:57 Dose: 4 mg Oxycodone/Acetaminophen (Percocet 325-5 Mg) 2 tab PO Q4H PRN PRN Reason: Pain (moderate 4-6) Last Admin: 09/05/16 08:22 Dose: 2 tab Admin: 09/05/16 04:16 Dose: 2 tab Admin: 09/05/16 00:32 Dose: 2 tab Admin: 09/04/16 20:58 Dose: 2 tab Admin: 09/04/16 18:06 Dose: 2 tab Sertraline HCl (Zoloft) 50 mg PO DAILY [facility] Last Admin: 09/05/16 08:17 Dose: 50 mg Admin: 09/04/16 16:39 Dose: Zolpidem Tartrate (Ambien) 5 mg PO BEDTIME PRN PRN Reason: Insomnia - Assessment Assessment (Free Text/Narrative):: Significant incisional discomfort postoperative apparently much better controlled as the patient was sleeping this morning. She walked twice [place] yesterday which was nice to hear about. She is very motivated. - Plan Plan (Free Text/Narrative):: Ambulation. Rae catheter removal this evening. Awaiting return of bowel function. Clear liquid diet today.
[2016-09-05] MEDS: LORazepam 0.5 MG Tab PO PRN (11:23)
[2016-09-05] MEDS ORDERED: HYDROmorphone 0.5 MG/0.5 ML Syringe IVPUSH PRN (11:45)
[2016-09-05] MEDS: Cyclobenzaprine 10 MG Tab PO PRN (11:57)
[2016-09-05] MEDS: HYDROmorphone 1 MG/ML Syringe IVPUSH PRN ×3 (13:41→17:54)
--- NOTE | 2016-09-05 16:43 | PCM.SURGPN ---
- General Info Date of Service: 09/05/16 Date of Surgery/Procedure: 09/04/16 POD#: 1 Functional Status: Reports: ambulating Pain Score: 8 - Review of Systems Gastrointestinal: Reports: Abdominal pain (Patient complains of persistent right upper quadrant abdominal pain. She has minimal to no discomfort at the midline incision and in the left upper and left lower quadrants.) - Patient Data Vitals - most recent: Last Vital Signs Temp 37.1 C 09/05/16 15:01 Pulse 73 09/05/16 15:01 Resp 14 09/05/16 15:01 BP 127/82 09/05/16 15:01 Pulse Ox 93 L 09/05/16 15:15 Weight - most recent: 58.769 kg I&O - last 24 hours: Intake & Output 09/05/16 09/05/16 09/05/16 06:59 14:59 22:59 Intake Total 1835 100 300 Output Total 1000 550 Balance 835 100 -250 Med Orders - Current: Current Medications Cyclobenzaprine HCl (Flexeril) 10 mg PO Q8H PRN PRN Reason: Spasms Last Admin: 09/05/16 11:57 Dose: 10 mg Hydromorphone HCl (Dilaudid) 1 mg IVPUSH Q2H PRN PRN Reason: pain Last Admin: 09/05/16 15:39 Dose: 1 mg Lactated Ringer's (Ringers, Lactated) 1,000 mls @ 125 mls/hr IV ASDIRECTED [facility] Last Admin: 09/05/16 13:01 Dose: 125 mls/hr Lorazepam (Ativan) 0.5 mg PO BID PRN PRN Reason: Anxiety Last Admin: 09/05/16 11:23 Dose: 0.5 mg Metoprolol Tartrate (Lopressor) 12.5 mg PO BID [facility] Last Admin: 09/05/16 08:18 Dose: 12.5 mg Ondansetron HCl (Zofran) 4 mg IVPUSH Q6H PRN PRN Reason: Nausea/Vomiting Last Admin: 09/04/16 17:57 Dose: 4 mg Oxycodone/Acetaminophen (Percocet 325-5 Mg) 2 tab PO Q4H PRN PRN Reason: Pain (moderate 4-6) Last Admin: 09/05/16 16:34 Dose: 2 tab Sertraline HCl (Zoloft) 50 mg PO DAILY [facility] Last Admin: 09/05/16 08:17 Dose: 50 mg Zolpidem Tartrate (Ambien) 5 mg PO BEDTIME PRN PRN Reason: Insomnia Discontinued Medications Bupivacaine HCl/Epinephrine Bitart (Marcaine 0.5%/Epinephrine 1:200,000) Confirm Administered Dose 50 ml .ROUTE .STK-MED ONE Stop: 09/04/16 07:12 Dexamethasone (Dexamethasone) Confirm Administered Dose 20 mg .ROUTE .STK-MED ONE Stop: 09/04/16 09:31 Diphenhydramine HCl (Benadryl) 12.5 mg IVPUSH Q6H PRN PRN Reason: pruritis Stop: 09/04/16 12:00 Diphenhydramine HCl (Benadryl) 25 mg IVPUSH Q6H PRN PRN Reason: pruritis Stop: 09/04/16 15:00 Ephedrine Sulfate (Ephedrine In Ns) Confirm Administered Dose 25 mg .ROUTE .STK- MED ONE Stop: 09/04/16 08:41 Fentanyl (Sublimaze) Confirm Administered Dose 250 mcg .ROUTE .STK-MED ONE Stop: 09/04/16 07:37 Fentanyl (Sublimaze) 50 mcg IVPUSH Q5M PRN PRN Reason: Pain Stop: 09/04/16 12:00 Fentanyl (Sublimaze) 50 mcg IVPUSH Q5M PRN PRN Reason: Pain Stop: 09/04/16 15:00 Glycopyrrolate () Confirm Administered Dose 1 mg .ROUTE .STK-MED ONE Stop: 09/04/16 10:49 Hydromorphone HCl (Dilaudid) Confirm Administered Dose 1 mg .ROUTE .STK-MED ONE Stop: 09/04/16 08:48 Hydromorphone HCl (Dilaudid) 0.5 mg IVPUSH Q15M PRN PRN Reason: severe pain Stop: 09/04/16 09:16 Hydromorphone HCl (Dilaudid) Confirm Administered Dose 1 mg .ROUTE .STK-MED ONE Stop: 09/04/16 10:49 Hydromorphone HCl (Dilaudid) 0.5 mg IVPUSH Q2H PRN PRN Reason: Pain (severe 7-10) Last Admin: 09/05/16 11:17 Dose: 0.5 mg Hydromorphone HCl (Dilaudid) 0.5 mg IVPUSH Q15M PRN PRN Reason: severe pain Stop: 09/04/16 12:40 Last Admin: 09/04/16 12:54 Dose: 0.5 mg Hydromorphone HCl (Dilaudid) 0.5 mg IVPUSH Q1H PRN PRN Reason: PAIN Lactated Ringer's (Ringers, Lactated) 1,000 mls @ 125 mls/hr IV ASDIRECTED [facility] Stop: 09/04/16 23:00 Last Admin: 09/04/16 07:40 Dose: 125 mls/hr Lidocaine HCl (Xylocaine-Mpf 1%) Confirm Administered Dose 4 mls @ as directed .ROUTE .STK-MED ONE Stop: 09/04/16 07:37 Lidocaine HCl (Xylocaine-Mpf 1%) Confirm Administered Dose 4 mls @ as directed .ROUTE .STK-MED ONE Stop: 09/04/16 07:51 Cefoxitin Sodium 2 gm/ Premix 50 mls @ 100 mls/hr IV ONETIME ONE Stop: 09/04/16 08:44 Last Admin: 09/04/16 08:05 Dose: 100 mls/hr Lactated Ringer's (Ringers, Lactated) Confirm Administered Dose 1,000 mls @ as directed .ROUTE .STK-MED ONE Stop: 09/04/16 08:56 Acetaminophen (Ofirmev) 100 mls @ 400 mls/hr IV NOW ONE Stop: 09/04/16 09:14 Last Admin: 09/04/16 08:53 Dose: 400 mls/hr Lactated Ringer's (Ringers, Lactated) Confirm Administered Dose 1,000 mls @ as directed .ROUTE .STK-MED ONE Stop: 09/04/16 10:47 Cefoxitin Sodium 2 gm/ Premix 50 mls @ 100 mls/hr IV Q6H [facility] Stop: 09/05/16 08:29 Last Admin: 09/05/16 08:24 Dose: 100 mls/hr Ketamine HCl (Ketalar) Confirm Administered Dose 500 mg .ROUTE .STK-MED ONE Stop: 09/04/16 09:03 Ketorolac Tromethamine (Toradol) Confirm Administered Dose 30 mg .ROUTE .STK- MED ONE Stop: 09/04/16 09:31 Ketorolac Tromethamine (Toradol) 30 mg IM Q6H PRN PRN Reason: Pain Stop: 09/05/16 06:01 Ketorolac Tromethamine (Toradol) 30 mg IVPUSH Q6H PRN PRN Reason: Pain (moderate 4-6) Stop: 09/05/16 10:31 Last Admin: 09/05/16 06:41 Dose: 30 mg Lidocaine/Epinephrine (Xylocaine 1% With Epinephrine 1:100,000) Confirm Administered Dose 20 ml .ROUTE .STK-MED ONE Stop: 09/04/16 07:12 Lidocaine/Sodium Bicarbonate (Buffered Lidocaine 1% In Ns 8.4%) 0.25 ml .XX ONETIME PRN PRN Reason: Prior to IV Start Stop: 09/04/16 18:00 Last Admin: 09/04/16 07:40 Dose: 0.25 ml Midazolam HCl (Versed 1 Mg/Ml) Confirm Administered Dose 2 mg .ROUTE .STK-MED ONE Stop: 09/04/16 07:37 Neostigmine Methylsulfate (Neostigmine) Confirm Administered Dose 5 mg .ROUTE .STK-MED ONE Stop: 09/04/16 10:49 Ondansetron HCl (Zofran) 4 mg IVPUSH ONETIME PRN PRN Reason: Nausea/Vomiting Stop: 09/04/16 12:00 Ondansetron HCl (Zofran) Confirm Administered Dose 4 mg .ROUTE .STK-MED ONE Stop: 09/04/16 09:31 Ondansetron HCl (Zofran) 4 mg IVPUSH ONETIME PRN PRN Reason: Nausea/Vomiting Stop: 09/04/16 15:00 Pneumococcal Polyvalent Vaccine (Pneumovax 23) 0.5 ml IM .ONCE ONE Stop: 09/04/16 14:52 Propofol (Diprivan 20 Ml) Confirm Administered Dose 800 mg .ROUTE .STK-MED ONE Stop: 09/04/16 07:37 Rocuronium [place] (Zemuron) Confirm Administered Dose 50 mg .ROUTE .STK-MED ONE Stop: 09/04/16 07:51 Sodium Chloride (Saline Flush) 10 ml FLUSH ASDIRECTED PRN PRN Reason: Keep Vein Open Stop: 09/04/16 18:00 - Exam Abdomen: tenderness (Mild to moderate right upper quadrant tenderness to deep palpation. No midline or left lower quadrant tenderness to superficial palpation.), distension - Problem List Review Problem List Initiated/Reviewed/Updated: Yes - My Orders Last 24 Hours: Active Orders 24 hr Category Date Time Status Urinary Catheter Removal [RC] Per Unit Routine Care 09/05/16 22:00 Active Clear Liquid Diet [DIET] Diet 09/05/16 Breakfast Active Gallbladder [Abdomen Ltd] [US] Routine Exams 09/05/16 16:35 Ordered CBC WITH AUTO DIFF [HEME] Routine Lab 09/05/16 16:36 Ordered COMPREHENSIVE METABOLIC PN,CMP [CHEM] Routine Lab 09/05/16 16:37 Ordered Cyclobenzaprine [Flexeril] Med 09/05/16 11:43 Active 10 mg PO Q8H PRN HYDROmorphone [Dilaudid] Med 09/05/16 11:43 Active 1 mg IVPUSH Q2H PRN LORazepam [Ativan] Med 09/04/16 21:00 Active 0.5 mg PO BID PRN Metoprolol Tartrate [Lopressor] Med 09/04/16 21:00 Active 12.5 mg PO BID Zolpidem [Ambien] Med 09/04/16 21:00 Active 5 mg PO BEDTIME PRN SCD [Sequential Compression Device] [OM.PC] Routine Oth 09/05/16 06:45 Ordered Medication Orders Cyclobenzaprine HCl (Flexeril) 10 mg PO Q8H PRN PRN Reason: Spasms Last Admin: 09/05/16 11:57 Dose: 10 mg Hydromorphone HCl (Dilaudid) 1 mg IVPUSH Q2H PRN PRN Reason: pain Last Admin: 09/05/16 15:39 Dose: 1 mg Admin: 09/05/16 13:41 Dose: 1 mg Lactated Ringer's (Ringers, Lactated) 1,000 mls @ 125 mls/hr IV ASDIRECTED [facility] Last Admin: 09/05/16 13:01 Dose: 125 mls/hr Infusion: 09/05/16 12:16 Dose: 125 mls/hr Admin: 09/05/16 04:16 Dose: 125 mls/hr Infusion: 09/05/16 04:16 Dose: 125 mls/hr Admin: 09/04/16 20:43 Dose: 125 mls/hr Infusion: 09/04/16 20:43 Dose: 125 mls/hr Admin: 09/04/16 13:34 Dose: 125 mls/hr Lorazepam (Ativan) 0.5 mg PO BID PRN PRN Reason: Anxiety Last Admin: 09/05/16 11:23 Dose: 0.5 mg Admin: 09/04/16 23:09 Dose: 0.5 mg Metoprolol Tartrate (Lopressor) 12.5 mg PO BID [facility] Last Admin: 09/05/16 08:18 Dose: 12.5 mg Admin: 09/04/16 21:00 Dose: 12.5 mg Ondansetron HCl (Zofran) 4 mg IVPUSH Q6H PRN PRN Reason: Nausea/Vomiting Last Admin: 09/04/16 17:57 Dose: 4 mg Oxycodone/Acetaminophen (Percocet 325-5 Mg) 2 tab PO Q4H PRN PRN Reason: Pain (moderate 4-6) Last Admin: 09/05/16 16:34 Dose: 2 tab Admin: 09/05/16 12:27 Dose: 2 tab Admin: 09/05/16 08:22 Dose: 2 tab Admin: 09/05/16 04:16 Dose: 2 tab Admin: 09/05/16 00:32 Dose: 2 tab Admin: 09/04/16 20:58 Dose: 2 tab Admin: 09/04/16 18:06 Dose: 2 tab Sertraline HCl (Zoloft) 50 mg PO DAILY [facility] Last Admin: 09/05/16 08:17 Dose: 50 mg Admin: 09/04/16 16:39 Dose: Zolpidem Tartrate (Ambien) 5 mg PO BEDTIME PRN PRN Reason: Insomnia - Assessment Assessment (Free Text/Narrative):: Right upper quadrant pain. This may be musculoskeletal but this may also be due to complications from the cholecystectomy. Bleeding from the cholecystectomy bed or a cystic duct, or accessory bile duct bile leak can cause this kind of discomfort. This needs to be evaluated. - Plan Plan (Free Text/Narrative):: Ultrasound of the right upper quadrant to look for a fluid collection. If there is a fluid collection then I will obtain a HIDA scan to look for bile leakage. If the HIDA scan is negative then I will consider this to be bleeding which can be either drained or observed and allowed to resolve spontaneously. My impression and plan was discussed with FAMILY members. When I was done they had no additional questions.
--- NOTE | 2016-09-05 17:51 | US ---
Limited abdominal ultrasound: Multiple real-time images of the upper right abdomen were obtained. Comparison: Previous CT exam of 03/18/15. Small amount of fluid is seen adjacent to the liver. Liver shows no focal parenchymal abnormality. Small hyperechoic area which is felt compatible with blood clot is seen within the gallbladder fossa. Right kidney shows no hydronephrosis or mass and has a length of 10.2 cm. Pancreas is mostly obscured from bowel gas. No biliary duct dilatation is appreciated. Impression: 1. Small amount of fluid next to the liver. 2. Hyperechoic area within the gallbladder fossa presumably due to small blood clot. 3. No additional abnormality is appreciated on right upper quadrant abdominal ultrasound. Diagnostic code #3
[2016-09-05] MEDS ORDERED: HYDROmorphone/Normal Saline 6 MG/30 ML PCA Vial IV PRN (18:08)
[2016-09-05] MEDS: Sodium Chloride 0.9% 1,000 ML IV SCH (21:34)
[2016-09-06] MEDS: Sodium Chloride 0.9% 1,000 ML IV SCH (07:38)
[2016-09-06] MEDS: Metoprolol Tartrate 25 MG Tab PO SCH ×2 (08:49→20:16)
[2016-09-06] MEDS: LORazepam 0.5 MG Tab PO PRN (08:51)
[2016-09-06] MEDS: Sertraline 50 MG Tab PO SCH (08:52)
[2016-09-06] MEDS ORDERED: Ertapenem 1 GM in Sodium Chloride 0.9% 100 ML IV SCH (09:00)
[2016-09-06] MEDS ORDERED: Sodium Chloride 0.9% 1,000 ML IV SCH (09:15)
[2016-09-06] MEDS ORDERED: Bupivacaine 0.5%/EPINEPHrine 1:200,000 50 ML MDV INJECT ONE (10:50)
--- NOTE | 2016-09-06 12:01 | PCM.SURGPN ---
- General Info POD#: 2 Functional Status: Reports: pain controlled, tolerating diet, incentive spirometry - Review of Systems Cardiovascular: Reports: Chest Pain (Right subcostal margin is painful with walking and movement as well as deep breathing) Gastrointestinal: Reports: Abdominal pain (Improved chest today), Other ( Complain of burping) - Patient Data Vitals - most recent: Last Vital Signs Temp 36.9 C 09/06/16 08:27 Pulse 71 09/06/16 08:49 Resp 14 09/06/16 08:27 BP 133/85 09/06/16 08:49 Pulse Ox 93 L 09/06/16 08:27 Weight - most recent: 58.769 kg I&O - last 24 hours: Intake & Output 09/05/16 09/06/16 09/06/16 22:59 06:59 14:59 Intake Total 2365 2200 Output Total 550 1800 Balance 1815 400 Lab Results last 24 hrs: Laboratory Results - last 24 hr 09/05/16 09/05/16 09/05/16 Range/Units 16:45 16:45 18:02 WBC 6.78 (3.98-10.04) K/mm3 RBC 4.52 (3.98-5.22) M/mm3 Hgb 13.6 (11.2-15.7) gm/L Hct 42.4 (34.1-44.9) % MCV 93.8 (79.4-94.8) fl MCH 30.1 (25.6-32.2) pg MCHC 32.1 L (32.2-35.5) g/dl RDW Std Deviation 44.6 (36.4-46.3) fL Plt Count 140 L (182-369) K/mm3 MPV 10.2 (9.4-12.3) fl Neut % (Auto) 70.6 (34.0-71.1) % Lymph % (Auto) 16.4 L (19.3-51.7) % Bell % (Auto) 9.7 (4.7-12.5) % Eos % (Auto) 2.9 (0.7-5.8) Baso % (Auto) 0.3 (0.1-1.2) % Neut # (Auto) 4.78 (1.56-6.13) K/mm3 Lymph # (Auto) 1.11 L (1.18-3.74) K/mm3 Bell # (Auto) 0.66 H (0.24-0.36) K/mm3 Eos # (Auto) 0.20 (0.04-0.36) K/mm3 Baso # (Auto) 0.02 (0.01-0.08) K/mm3 Sodium 134 L (136-145) mEq/L Potassium 4.3 (3.5-5.1) mEq/L Chloride 102 (98-107) mEq/L Carbon Dioxide 27 (21-32) mEq/L Anion Gap 9.3 (5-15) BUN 8 (7-18) mg/dL Creatinine 0.8 (0.55-1.02) mg/dL Est Cr Clr Drug Dosing 89.33 mL/min Estimated GFR (MDRD) > 60 (>60) mL/min BUN/Creatinine Ratio 10.0 L (14-18) Glucose 80 (74-106) mg/dL Calcium 8.4 L (8.5-10.1) mg/dL Total Bilirubin 0.7 (0.2-1.0) mg/dL AST 70 H (15-37) U/L ALT 117 H (14-59) U/L Alkaline Phosphatase 64 (46-116) U/L Total Protein 5.4 L (6.4-8.2) g/dl Albumin 2.9 L (3.4-5.0) g/dl Globulin 1.6 gm/dL Albumin/Globulin Ratio 1.8 (1-2) Urine Color Yellow (Yellow) Urine Appearance Clear (Clear) Urine pH 6.0 (5.0-8.0) Ur Specific [place] 1.010 (1.005-1.030) Urine Protein Negative (Negative) Urine Glucose (UA) Negative (Negative) Urine Ketones Negative (Negative) Urine Occult Blood 1+ H (Negative) Urine Nitrite Negative (Negative) Urine Bilirubin Negative (Negative) Urine Urobilinogen 0.2 (0.2-1.0) Ur Leukocyte Esterase Negative (Negative) Urine RBC 0-5 (0-5) /hpf Urine WBC 0-5 (0-5) /hpf Ur Epithelial Cells 0-5 (0-5) /hpf Urine Bacteria Rare (FEW) /hpf Urine Mucus Not seen (FEW) /hpf Med Orders - Current: Current Medications Cyclobenzaprine HCl (Flexeril) 10 mg PO Q8H PRN PRN Reason: Spasms Last Admin: 09/05/16 11:57 Dose: 10 mg Furosemide (Lasix) 20 mg IVPUSH DAILY [facility] Hydromorphone HCl (Dilaudid) 1 mg IVPUSH Q2H PRN PRN Reason: pain Last Admin: 09/05/16 17:54 Dose: 1 mg Hydromorphone HCl (Dilaudid Air Pollution Specialist 6 Mg In Ns 30 Ml) 6 mg IV ASDIRECTED PRN; Protocol PRN Reason: Pain Last Admin: 09/05/16 21:52 Dose: 6 mg Sodium Chloride (Normal Saline) 1,000 mls @ 25 mls/hr IV ASDIRECTED [facility] Last Admin: 09/06/16 08:03 Dose: 25 mls/hr Lorazepam (Ativan) 0.5 mg PO BID PRN PRN Reason: Anxiety Last Admin: 09/06/16 08:51 Dose: 0.5 mg Metoprolol Tartrate (Lopressor) 12.5 mg PO BID [facility] Last Admin: 09/06/16 08:49 Dose: 12.5 mg Ondansetron HCl (Zofran) 4 mg IVPUSH Q6H PRN PRN Reason: Nausea/Vomiting Last Admin: 09/04/16 17:57 Dose: 4 mg Oxycodone/Acetaminophen (Percocet 325-5 Mg) 2 tab PO Q4H PRN PRN Reason: Pain (moderate 4-6) Last Admin: 09/05/16 16:34 Dose: 2 tab Sertraline HCl (Zoloft) 50 mg PO DAILY [facility] Last Admin: 09/06/16 08:52 Dose: 50 mg Discontinued Medications Bupivacaine HCl/Epinephrine Bitart (Marcaine 0.5%/Epinephrine 1:200,000) Confirm Administered Dose 50 ml .ROUTE .STK-MED ONE Stop: 09/04/16 07:12 Bupivacaine HCl/Epinephrine Bitart (Marcaine 0.5%/Epinephrine 1:200,000) 30 ml INJECT ONETIME ONE Stop: 09/06/16 10:51 Dexamethasone (Dexamethasone) Confirm Administered Dose 20 mg .ROUTE .STK-MED ONE Stop: 09/04/16 09:31 Diphenhydramine HCl (Benadryl) 12.5 mg IVPUSH Q6H PRN PRN Reason: pruritis Stop: 09/04/16 12:00 Diphenhydramine HCl (Benadryl) 25 mg IVPUSH Q6H PRN PRN Reason: pruritis Stop: 09/04/16 15:00 Ephedrine Sulfate (Ephedrine In Ns) Confirm Administered Dose 25 mg .ROUTE .STK- MED ONE Stop: 09/04/16 08:41 Fentanyl (Sublimaze) Confirm Administered Dose 250 mcg .ROUTE .STK-MED ONE Stop: 09/04/16 07:37 Fentanyl (Sublimaze) 50 mcg IVPUSH Q5M PRN PRN Reason: Pain Stop: 09/04/16 12:00 Fentanyl (Sublimaze) 50 mcg IVPUSH Q5M PRN PRN Reason: Pain Stop: 09/04/16 15:00 Glycopyrrolate () Confirm Administered Dose 1 mg .ROUTE .STK-MED ONE Stop: 09/04/16 10:49 Hydromorphone HCl (Dilaudid) Confirm Administered Dose 1 mg .ROUTE .STK-MED ONE Stop: 09/04/16 08:48 Hydromorphone HCl (Dilaudid) 0.5 mg IVPUSH Q15M PRN PRN Reason: severe pain Stop: 09/04/16 09:16 Hydromorphone HCl (Dilaudid) Confirm Administered Dose 1 mg .ROUTE .STK-MED ONE Stop: 09/04/16 10:49 Hydromorphone HCl (Dilaudid) 0.5 mg IVPUSH Q2H PRN PRN Reason: Pain (severe 7-10) Last Admin: 09/05/16 11:57 Dose: 0.5 mg Hydromorphone HCl (Dilaudid) 0.5 mg IVPUSH Q15M PRN PRN Reason: severe pain Stop: 09/04/16 12:40 Last Admin: 09/04/16 12:54 Dose: 0.5 mg Hydromorphone HCl (Dilaudid) 0.5 mg IVPUSH Q1H PRN PRN Reason: PAIN Lactated Ringer's (Ringers, Lactated) 1,000 mls @ 125 mls/hr IV ASDIRECTED [facility] Stop: 09/04/16 23:00 Last Admin: 09/04/16 07:40 Dose: 125 mls/hr Lidocaine HCl (Xylocaine-Mpf 1%) Confirm Administered Dose 4 mls @ as directed .ROUTE .STK-MED ONE Stop: 09/04/16 07:37 Lidocaine HCl (Xylocaine-Mpf 1%) Confirm Administered Dose 4 mls @ as directed .ROUTE .[facility] ONE Stop: 09/04/16 07:51 Cefoxitin Sodium 2 gm/ Premix 50 mls @ 100 mls/hr IV ONETIME ONE Stop: 09/04/16 08:44 Last Admin: 09/04/16 08:05 Dose: 100 mls/hr Lactated Ringer's (Ringers, Lactated) Confirm Administered Dose 1,000 mls @ as directed .ROUTE .[facility] ONE Stop: 09/04/16 08:56 Acetaminophen (Ofirmev) 100 mls @ 400 mls/hr IV NOW ONE Stop: 09/04/16 09:14 Last Admin: 09/04/16 08:53 Dose: 400 mls/hr Lactated Ringer's (Ringers, Lactated) Confirm Administered Dose 1,000 mls @ as directed .ROUTE .[facility]-MED ONE Stop: 09/04/16 10:47 Lactated Ringer's (Ringers, Lactated) 1,000 mls @ 125 mls/hr IV ASDIRECTED [facility] Last Admin: 09/05/16 13:01 Dose: 125 mls/hr Cefoxitin Sodium 2 gm/ Premix 50 mls @ 100 mls/hr IV Q6H [facility] Stop: 09/05/16 08:29 Last Admin: 09/05/16 08:24 Dose: 100 mls/hr Ertapenem 1 gm/ Sodium (Chloride) 100 mls @ 100 mls/hr IV DAILY [facility] Last Admin: 09/06/16 08:52 Dose: 100 mls/hr Sodium Chloride (Normal Saline) 1,000 mls @ 100 mls/hr IV ASDIRECTED [facility] Last Admin: 09/06/16 07:38 Dose: 100 mls/hr Ketamine HCl (Ketalar) Confirm Administered Dose 500 mg .ROUTE .STK-MED ONE Stop: 09/04/16 09:03 Ketorolac Tromethamine (Toradol) Confirm Administered Dose 30 mg .ROUTE .STK- MED ONE Stop: 09/04/16 09:31 Ketorolac Tromethamine (Toradol) 30 mg IM Q6H PRN PRN Reason: Pain Stop: 09/05/16 06:01 Ketorolac Tromethamine (Toradol) 30 mg IVPUSH Q6H PRN PRN Reason: Pain (moderate 4-6) Stop: 09/05/16 10:31 Last Admin: 09/05/16 06:41 Dose: 30 mg Lidocaine/Epinephrine (Xylocaine 1% With Epinephrine 1:100,000) Confirm Administered Dose 20 ml .ROUTE .STK-MED ONE Stop: 09/04/16 07:12 Lidocaine/Sodium Bicarbonate (Buffered Lidocaine 1% In Ns 8.4%) 0.25 ml .XX ONETIME PRN PRN Reason: Prior to IV Start Stop: 09/04/16 18:00 Last Admin: 09/04/16 07:40 Dose: 0.25 ml Midazolam HCl (Versed 1 Mg/Ml) Confirm Administered Dose 2 mg .ROUTE .STK-MED ONE Stop: 09/04/16 07:37 Neostigmine Methylsulfate (Neostigmine) Confirm Administered Dose 5 mg .ROUTE .STK-MED ONE Stop: 09/04/16 10:49 Ondansetron HCl (Zofran) 4 mg IVPUSH ONETIME PRN PRN Reason: Nausea/Vomiting Stop: 09/04/16 12:00 Ondansetron HCl (Zofran) Confirm Administered Dose 4 mg .ROUTE .STK-MED ONE Stop: 09/04/16 09:31 Ondansetron HCl (Zofran) 4 mg IVPUSH ONETIME PRN PRN Reason: Nausea/Vomiting Stop: 09/04/16 15:00 Pneumococcal Polyvalent Vaccine (Pneumovax 23) 0.5 ml IM .ONCE ONE Stop: 09/04/16 14:52 Propofol (Diprivan 20 Ml) Confirm Administered Dose 800 mg .ROUTE .STK-MED ONE Stop: 09/04/16 07:37 Rocuronium [place] (Zemuron) Confirm Administered Dose 50 mg .ROUTE .STK-MED ONE Stop: 09/04/16 07:51 Sodium Chloride (Saline Flush) 10 ml FLUSH ASDIRECTED PRN PRN Reason: Keep Vein Open Stop: 09/04/16 18:00 Zolpidem Tartrate (Ambien) 5 mg PO BEDTIME PRN PRN Reason: Insomnia - Exam Wound/Incisions: dressing dry and intact Abdomen: distension - Problem List Review Problem List Initiated/Reviewed/Updated: Yes - My Orders Last 24 Hours: Active Orders 24 hr Category Date Time Status May Shower [RC] ASDIRECTED Care 09/06/16 11:56 Ordered Cyclobenzaprine [Flexeril] Med 09/05/16 11:43 Active 10 mg PO Q8H PRN Furosemide [Lasix] Med 09/06/16 12:00 Ordered 20 mg IVPUSH DAILY HYDROmorphone [Dilaudid] Med 09/05/16 11:43 Hold 1 mg IVPUSH Q2H PRN HYDROmorphone/Normal Saline [Dilaudid [employer]ADER 6 MG in NS 30 Med 09/05/16 18:08 Active ML] 6 mg IV ASDIRECTED PRN Sodium Chloride 0.9% [Normal Saline] 1,000 ml Med 09/06/16 09:15 Active IV ASDIRECTED Pulse Oximetry Continuous Monitoring [OM.PC] Routine Oth 09/05/16 20:52 Active Medication Orders Cyclobenzaprine HCl (Flexeril) 10 mg PO Q8H PRN PRN Reason: Spasms Last Admin: 09/05/16 11:57 Dose: 10 mg Furosemide (Lasix) 20 mg IVPUSH DAILY [facility] Hydromorphone HCl (Dilaudid) 1 mg IVPUSH Q2H PRN PRN Reason: pain Last Admin: 09/05/16 17:54 Dose: 1 mg Admin: 09/05/16 15:39 Dose: 1 mg Admin: 09/05/16 13:41 Dose: 1 mg Hydromorphone HCl (Dilaudid Air Pollution Specialist 6 Mg In Ns 30 Ml) 6 mg IV ASDIRECTED PRN; Protocol PRN Reason: Pain Last Admin: 09/05/16 21:52 Dose: 6 mg Sodium Chloride (Normal Saline) 1,000 mls @ 25 mls/hr IV ASDIRECTED [facility] Last Admin: 09/06/16 08:03 Dose: 25 mls/hr Lorazepam (Ativan) 0.5 mg PO BID PRN PRN Reason: Anxiety Last Admin: 09/06/16 08:51 Dose: 0.5 mg Admin: 09/05/16 11:23 Dose: 0.5 mg Admin: 09/04/16 23:09 Dose: 0.5 mg Metoprolol Tartrate (Lopressor) 12.5 mg PO BID [facility] Last Admin: 09/06/16 08:49 Dose: 12.5 mg Admin: 09/05/16 21:56 Dose: 12.5 mg Admin: 09/05/16 08:18 Dose: 12.5 mg Admin: 09/04/16 21:00 Dose: 12.5 mg Ondansetron HCl (Zofran) 4 mg IVPUSH Q6H PRN PRN Reason: Nausea/Vomiting Last Admin: 09/04/16 17:57 Dose: 4 mg Oxycodone/Acetaminophen (Percocet 325-5 Mg) 2 tab PO Q4H PRN PRN Reason: Pain (moderate 4-6) Last Admin: 09/05/16 16:34 Dose: 2 tab Admin: 09/05/16 12:27 Dose: 2 tab Admin: 09/05/16 08:22 Dose: 2 tab Admin: 09/05/16 04:16 Dose: 2 tab Admin: 09/05/16 00:32 Dose: 2 tab Admin: 09/04/16 20:58 Dose: 2 tab Admin: 09/04/16 18:06 Dose: 2 tab Sertraline HCl (Zoloft) 50 mg PO DAILY [facility] Last Admin: 09/06/16 08:52 Dose: 50 mg Admin: 09/05/16 08:17 Dose: 50 mg Admin: 09/04/16 16:39 Dose: - Assessment Assessment (Free Text/Narrative):: imp: This patient's abdominal pain happens to be right subcostal margin and rib pain at the insertion of the rectus. This was due to a Pugh retractor used to elevate the right lower chest wall for the open cholecystectomy. This has caused her at least for the first 36 hours severe discomfort. Workup for an intra-abdominal complication has been negative. Patient has clinically improved. Her [employer]ADER is helping a lot. She is a motivated walker and walks frequently. plan: Intercostal nerve block if needed. Awaiting for flatus. May shower today.
[2016-09-06] MEDS: Furosemide 20 MG/2 ML VIAL IVPUSH SCH (12:30)
[2016-09-06] MEDS ORDERED: Acetaminophen 325 MG Tab PO ONE (18:39)
[2016-09-06] MEDS: Ondansetron 4 MG/2 ML SDV IVPUSH PRN (19:07)
[2016-09-07] MEDS ORDERED: Sodium Chloride 0.9% 10 ML Syringe FLUSH PRN (07:59)
--- NOTE | 2016-09-07 08:03 | PCM.SURGPN ---
- General Info Date of Service: 09/07/16 POD#: 3 Functional Status: Reports: pain controlled, tolerating diet, ambulating, urinating - Review of Systems Gastrointestinal: Reports: Abdominal pain (Has improved significantly and now rarely using pain medication) - Patient Data Vitals - most recent: Last Vital Signs Temp 37.3 C 09/07/16 07:44 Pulse 81 09/07/16 07:44 Resp 12 09/07/16 07:44 BP 150/94 H 09/07/16 07:44 Pulse Ox 93 L 09/07/16 07:44 Weight - most recent: 58.769 kg I&O - last 24 hours: Intake & Output 09/06/16 09/07/16 09/07/16 22:59 06:59 14:59 Intake Total 1902 925 Output Total 2850 1000 Balance -948 -75 Med Orders - Current: Current Medications Cyclobenzaprine HCl (Flexeril) 10 mg PO Q8H PRN PRN Reason: Spasms Last Admin: 09/05/16 11:57 Dose: 10 mg Furosemide (Lasix) 20 mg IVPUSH DAILY [facility] Last Admin: 09/06/16 12:30 Dose: 20 mg Hydromorphone HCl (Dilaudid) 1 mg IVPUSH Q2H PRN PRN Reason: pain Last Admin: 09/05/16 17:54 Dose: 1 mg Sodium Chloride (Normal Saline) 1,000 mls @ 25 mls/hr IV ASDIRECTED [facility] Last Admin: 09/06/16 08:03 Dose: 25 mls/hr Lorazepam (Ativan) 0.5 mg PO BID PRN PRN Reason: Anxiety Last Admin: 09/06/16 08:51 Dose: 0.5 mg Metoprolol Tartrate (Lopressor) 12.5 mg PO BID [facility] Last Admin: 09/06/16 20:16 Dose: 12.5 mg Ondansetron HCl (Zofran) 4 mg IVPUSH Q6H PRN PRN Reason: Nausea/Vomiting Last Admin: 09/06/16 19:07 Dose: 4 mg Oxycodone/Acetaminophen (Percocet 325-5 Mg) 2 tab PO Q4H PRN PRN Reason: Pain (moderate 4-6) Last Admin: 09/05/16 16:34 Dose: 2 tab Potassium Chloride (Klor-Con M20) 20 meq PO BID [facility] Sertraline HCl (Zoloft) 50 mg PO DAILY [facility] Last Admin: 09/06/16 08:52 Dose: 50 mg Sodium Chloride (Saline Flush) 10 ml FLUSH ASDIRECTED PRN PRN Reason: Keep Vein Open Discontinued Medications Acetaminophen (Tylenol) 650 mg PO NOW ONE Stop: 09/06/16 18:40 Last Admin: 09/06/16 18:46 Dose: 650 mg Bupivacaine HCl/Epinephrine Bitart (Marcaine 0.5%/Epinephrine 1:200,000) Confirm Administered Dose 50 ml .ROUTE .STK-MED ONE Stop: 09/04/16 07:12 Bupivacaine HCl/Epinephrine Bitart (Marcaine 0.5%/Epinephrine 1:200,000) 30 ml INJECT ONETIME ONE Stop: 09/06/16 10:51 Dexamethasone (Dexamethasone) Confirm Administered Dose 20 mg .ROUTE .STK-MED ONE Stop: 09/04/16 09:31 Diphenhydramine HCl (Benadryl) 12.5 mg IVPUSH Q6H PRN PRN Reason: pruritis Stop: 09/04/16 12:00 Diphenhydramine HCl (Benadryl) 25 mg IVPUSH Q6H PRN PRN Reason: pruritis Stop: 09/04/16 15:00 Ephedrine Sulfate (Ephedrine In Ns) Confirm Administered Dose 25 mg .ROUTE .STK- MED ONE Stop: 09/04/16 08:41 Fentanyl (Sublimaze) Confirm Administered Dose 250 mcg .ROUTE .STK-MED ONE Stop: 09/04/16 07:37 Fentanyl (Sublimaze) 50 mcg IVPUSH Q5M PRN PRN Reason: Pain Stop: 09/04/16 12:00 Fentanyl (Sublimaze) 50 mcg IVPUSH Q5M PRN PRN Reason: Pain Stop: 09/04/16 15:00 Glycopyrrolate () Confirm Administered Dose 1 mg .ROUTE .STK-MED ONE Stop: 09/04/16 10:49 Hydromorphone HCl (Dilaudid) Confirm Administered Dose 1 mg .ROUTE .STK-MED ONE Stop: 09/04/16 08:48 Hydromorphone HCl (Dilaudid) 0.5 mg IVPUSH Q15M PRN PRN Reason: severe pain Stop: 09/04/16 09:16 Hydromorphone HCl (Dilaudid) Confirm Administered Dose 1 mg .ROUTE .STK-MED ONE Stop: 09/04/16 10:49 Hydromorphone HCl (Dilaudid) 0.5 mg IVPUSH Q2H PRN PRN Reason: Pain (severe 7-10) Last Admin: 09/05/16 11:57 Dose: 0.5 mg Hydromorphone HCl (Dilaudid) 0.5 mg IVPUSH Q15M PRN PRN Reason: severe pain Stop: 09/04/16 12:40 Last Admin: 09/04/16 12:54 Dose: 0.5 mg Hydromorphone HCl (Dilaudid) 0.5 mg IVPUSH Q1H PRN PRN Reason: PAIN Hydromorphone HCl (Dilaudid Manager [employer] 6 Mg In Ns 30 Ml) 6 mg IV ASDIRECTED PRN; Protocol PRN Reason: Pain Last Admin: 09/05/16 21:52 Dose: 6 mg Lactated Ringer's (Ringers, Lactated) 1,000 mls @ 125 mls/hr IV ASDIRECTED [facility] Stop: 09/04/16 23:00 Last Admin: 09/04/16 07:40 Dose: 125 mls/hr Lidocaine HCl (Xylocaine-Mpf 1%) Confirm Administered Dose 4 mls @ as directed .ROUTE .STK-MED ONE Stop: 09/04/16 07:37 Lidocaine HCl (Xylocaine-Mpf 1%) Confirm Administered Dose 4 mls @ as directed .ROUTE .ST-MED ONE Stop: 09/04/16 07:51 Cefoxitin Sodium 2 gm/ Premix 50 mls @ 100 mls/hr IV ONETIME ONE Stop: 09/04/16 08:44 Last Admin: 09/04/16 08:05 Dose: 100 mls/hr Lactated Ringer's (Ringers, Lactated) Confirm Administered Dose 1,000 mls @ as directed .ROUTE .STK-MED ONE Stop: 09/04/16 08:56 Acetaminophen (Ofirmev) 100 mls @ 400 mls/hr IV NOW ONE Stop: 09/04/16 09:14 Last Admin: 09/04/16 08:53 Dose: 400 mls/hr Lactated Ringer's (Ringers, Lactated) Confirm Administered Dose 1,000 mls @ as directed .ROUTE .STK-MED ONE Stop: 09/04/16 10:47 Lactated Ringer's (Ringers, Lactated) 1,000 mls @ 125 mls/hr IV ASDIRECTED [facility] Last Admin: 09/05/16 13:01 Dose: 125 mls/hr Cefoxitin Sodium 2 gm/ Premix 50 mls @ 100 mls/hr IV Q6H [facility] Stop: 09/05/16 08:29 Last Admin: 09/05/16 08:24 Dose: 100 mls/hr Ertapenem 1 gm/ Sodium (Chloride) 100 mls @ 100 mls/hr IV DAILY [facility] Last Admin: 09/06/16 08:52 Dose: 100 mls/hr Sodium Chloride (Normal Saline) 1,000 mls @ 100 mls/hr IV ASDIRECTED [facility] Last Admin: 09/06/16 07:38 Dose: 100 mls/hr Ketamine HCl (Ketalar) Confirm Administered Dose 500 mg .ROUTE .STK-MED ONE Stop: 09/04/16 09:03 Ketorolac Tromethamine (Toradol) Confirm Administered Dose 30 mg .ROUTE .STK- MED ONE Stop: 09/04/16 09:31 Ketorolac Tromethamine (Toradol) 30 mg IM Q6H PRN PRN Reason: Pain Stop: 09/05/16 06:01 Ketorolac Tromethamine (Toradol) 30 mg IVPUSH Q6H PRN PRN Reason: Pain (moderate 4-6) Stop: 09/05/16 10:31 Last Admin: 09/05/16 06:41 Dose: 30 mg Lidocaine/Epinephrine (Xylocaine 1% With Epinephrine 1:100,000) Confirm Administered Dose 20 ml .ROUTE .STK-MED ONE Stop: 09/04/16 07:12 Lidocaine/Sodium Bicarbonate (Buffered Lidocaine 1% In Ns 8.4%) 0.25 ml .XX ONETIME PRN PRN Reason: Prior to IV Start Stop: 09/04/16 18:00 Last Admin: 09/04/16 07:40 Dose: 0.25 ml Midazolam HCl (Versed 1 Mg/Ml) Confirm Administered Dose 2 mg .ROUTE .STK-MED ONE Stop: 09/04/16 07:37 Neostigmine Methylsulfate (Neostigmine) Confirm Administered Dose 5 mg .ROUTE .STK-MED ONE Stop: 09/04/16 10:49 Ondansetron HCl (Zofran) 4 mg IVPUSH ONETIME PRN PRN Reason: Nausea/Vomiting Stop: 09/04/16 12:00 Ondansetron HCl (Zofran) Confirm Administered Dose 4 mg .ROUTE .STK-MED ONE Stop: 09/04/16 09:31 Ondansetron HCl (Zofran) 4 mg IVPUSH ONETIME PRN PRN Reason: Nausea/Vomiting Stop: 09/04/16 15:00 Pneumococcal Polyvalent Vaccine (Pneumovax 23) 0.5 ml IM .ONCE ONE Stop: 09/04/16 14:52 Propofol (Diprivan 20 Ml) Confirm Administered Dose 800 mg .ROUTE .STK-MED ONE Stop: 09/04/16 07:37 Rocuronium [place] (Zemuron) Confirm Administered Dose 50 mg .ROUTE .STK-MED ONE Stop: 09/04/16 07:51 Sodium Chloride (Saline Flush) 10 ml FLUSH ASDIRECTED PRN PRN Reason: Keep Vein Open Stop: 09/04/16 18:00 Zolpidem Tartrate (Ambien) 5 mg PO BEDTIME PRN PRN Reason: Insomnia - Exam Wound/Incisions: dressing dry and intact Abdomen: distension - Problem List Review Problem List Initiated/Reviewed/Updated: Yes - My Orders Last 24 Hours: Active Orders 24 hr Category Date Time Status May Shower [RC] ASDIRECTED Care 09/06/16 11:56 Active Full Liquid Diet [DIET] Diet 09/07/16 Lunch Ordered Furosemide [Lasix] Med 09/06/16 12:00 Active 20 mg IVPUSH DAILY Potassium Chloride [Klor-Con M20] Med 09/07/16 09:00 Ordered 20 meq PO BID Sodium Chloride 0.9% [Normal Saline] 1,000 ml Med 09/06/16 09:15 Active IV ASDIRECTED Sodium Chloride 0.9% [Saline Flush] Med 09/07/16 07:59 Ordered 10 ml FLUSH ASDIRECTED PRN Convert IV to Saline Lock [OM.PC] Routine Oth 09/07/16 07:59 Ordered Medication Orders Cyclobenzaprine HCl (Flexeril) 10 mg PO Q8H PRN PRN Reason: Spasms Last Admin: 09/05/16 11:57 Dose: 10 mg Furosemide (Lasix) 20 mg IVPUSH DAILY [facility] Last Admin: 09/06/16 12:30 Dose: 20 mg Hydromorphone HCl (Dilaudid) 1 mg IVPUSH Q2H PRN PRN Reason: pain Last Admin: 09/05/16 17:54 Dose: 1 mg Admin: 09/05/16 15:39 Dose: 1 mg Admin: 09/05/16 13:41 Dose: 1 mg Sodium Chloride (Normal Saline) 1,000 mls @ 25 mls/hr IV ASDIRECTED [facility] Last Admin: 09/06/16 08:03 Dose: 25 mls/hr Lorazepam (Ativan) 0.5 mg PO BID PRN PRN Reason: Anxiety Last Admin: 09/06/16 08:51 Dose: 0.5 mg Admin: 09/05/16 11:23 Dose: 0.5 mg Admin: 09/04/16 23:09 Dose: 0.5 mg Metoprolol Tartrate (Lopressor) 12.5 mg PO BID [facility] Last Admin: 09/06/16 20:16 Dose: 12.5 mg Admin: 09/06/16 08:49 Dose: 12.5 mg Admin: 09/05/16 21:56 Dose: 12.5 mg Admin: 09/05/16 08:18 Dose: 12.5 mg Admin: 09/04/16 21:00 Dose: 12.5 mg Ondansetron HCl (Zofran) 4 mg IVPUSH Q6H PRN PRN Reason: Nausea/Vomiting Last Admin: 09/06/16 19:07 Dose: 4 mg Admin: 09/04/16 17:57 Dose: 4 mg Oxycodone/Acetaminophen (Percocet 325-5 Mg) 2 tab PO Q4H PRN PRN Reason: Pain (moderate 4-6) Last Admin: 09/05/16 16:34 Dose: 2 tab Admin: 09/05/16 12:27 Dose: 2 tab Admin: 09/05/16 08:22 Dose: 2 tab Admin: 09/05/16 04:16 Dose: 2 tab Admin: 09/05/16 00:32 Dose: 2 tab Admin: 09/04/16 20:58 Dose: 2 tab Admin: 09/04/16 18:06 Dose: 2 tab Potassium Chloride (Klor-Con M20) 20 meq PO BID [facility] Sertraline HCl (Zoloft) 50 mg PO DAILY MOY Last Admin: 09/06/16 08:52 Dose: 50 mg Admin: 09/05/16 08:17 Dose: 50 mg Admin: 09/04/16 16:39 Dose: Sodium Chloride (Saline Flush) 10 ml FLUSH ASDIRECTED PRN PRN Reason: Keep Vein Open - Assessment Assessment (Free Text/Narrative):: Impression: Pain nearly resolved. Patient doing quite well. Okay to slowly advance diet. - Plan Plan (Free Text/Narrative):: See orders
[2016-09-07] MEDS: Potassium Chloride 20 MEQ Tab.ER PO SCH ×2 (08:45→20:32)
[2016-09-07] MEDS: Metoprolol Tartrate 25 MG Tab PO SCH ×2 (08:45→20:31)
[2016-09-07] MEDS: Furosemide 20 MG/2 ML VIAL IVPUSH SCH (08:48)
[2016-09-07] MEDS: Sertraline 50 MG Tab PO SCH (08:48)
[2016-09-07] MEDS: HYDROmorphone 1 MG/ML Syringe IVPUSH PRN (10:29)
[2016-09-07] MEDS: Acetaminophen/oxyCODONE 325-5 MG Tab PO PRN ×2 (16:25→20:32)
[2016-09-07] MEDS: Cyclobenzaprine 10 MG Tab PO PRN (18:41)
[2016-09-07] MEDS: LORazepam 0.5 MG Tab PO PRN (20:32)
[2016-09-08] MEDS: Acetaminophen/oxyCODONE 325-5 MG Tab PO PRN ×4 (06:10→23:01)
[2016-09-08] MEDS: Cyclobenzaprine 10 MG Tab PO PRN (06:11)
[2016-09-08] MEDS: Sertraline 50 MG Tab PO SCH (09:31)
[2016-09-08] MEDS: Metoprolol Tartrate 25 MG Tab PO SCH ×2 (09:31→21:34)
[2016-09-08] MEDS: LORazepam 0.5 MG Tab PO PRN ×2 (09:32→21:35)
[2016-09-08] MEDS: Furosemide 20 MG/2 ML VIAL IVPUSH SCH (09:32)
[2016-09-08] MEDS: Potassium Chloride 20 MEQ Tab.ER PO SCH ×2 (09:32→21:33)
[2016-09-08] MEDS ORDERED: Furosemide 20 MG Tab PO PRN (09:50)
[2016-09-08] MEDS ORDERED: HYDROmorphone 0.5 MG/0.5 ML Syringe IM PRN (09:51)
--- NOTE | 2016-09-08 09:55 | PCM.SURGPN ---
- General Info Date of Service: 09/08/16 Functional Status: Reports: pain controlled, tolerating diet, ambulating, urinating, incentive spirometry - Review of Systems Gastrointestinal: Reports: Other (no flatus) - Patient Data Vitals - most recent: Last Vital Signs Temp 36.9 C 09/08/16 06:11 Pulse 83 09/08/16 09:31 Resp 12 09/08/16 06:11 BP 123/93 H 09/08/16 09:31 Pulse Ox 97 09/08/16 06:11 Weight - most recent: 54.431 kg I&O - last 24 hours: Intake & Output 09/07/16 09/08/16 09/08/16 22:59 06:59 14:59 Intake Total 2330 900 Output Total 0 Balance 2330 900 Med Orders - Current: Current Medications Lorazepam (Ativan) 0.5 mg PO BID PRN PRN Reason: Anxiety Last Admin: 09/08/16 09:32 Dose: 0.5 mg Metoprolol Tartrate (Lopressor) 12.5 mg PO BID [facility] Last Admin: 09/08/16 09:31 Dose: 12.5 mg Ondansetron HCl (Zofran) 4 mg IVPUSH Q6H PRN PRN Reason: Nausea/Vomiting Last Admin: 09/06/16 19:07 Dose: 4 mg Oxycodone/Acetaminophen (Percocet 325-5 Mg) 2 tab PO Q4H PRN PRN Reason: Pain (moderate 4-6) Last Admin: 09/08/16 06:10 Dose: 2 tab Potassium Chloride (Klor-Con M20) 20 meq PO BID [facility] Last Admin: 09/08/16 09:32 Dose: 20 meq Sertraline HCl (Zoloft) 50 mg PO DAILY [facility] Last Admin: 09/08/16 09:31 Dose: 50 mg Sodium Chloride (Saline Flush) 10 ml FLUSH ASDIRECTED PRN PRN Reason: Keep Vein Open Discontinued Medications Acetaminophen (Tylenol) 650 mg PO NOW ONE Stop: 09/06/16 18:40 Last Admin: 09/06/16 18:46 Dose: 650 mg Bupivacaine HCl/Epinephrine Bitart (Marcaine 0.5%/Epinephrine 1:200,000) Confirm Administered Dose 50 ml .ROUTE .STK-MED ONE Stop: 09/04/16 07:12 Bupivacaine HCl/Epinephrine Bitart (Marcaine 0.5%/Epinephrine 1:200,000) 30 ml INJECT ONETIME ONE Stop: 09/06/16 10:51 Last Admin: 09/07/16 19:45 Dose: Not Given Cyclobenzaprine HCl (Flexeril) 10 mg PO Q8H PRN PRN Reason: Spasms Last Admin: 09/08/16 06:11 Dose: 10 mg Dexamethasone (Dexamethasone) Confirm Administered Dose 20 mg .ROUTE .STK-MED ONE Stop: 09/04/16 09:31 Diphenhydramine HCl (Benadryl) 12.5 mg IVPUSH Q6H PRN PRN Reason: pruritis Stop: 09/04/16 12:00 Diphenhydramine HCl (Benadryl) 25 mg IVPUSH Q6H PRN PRN Reason: pruritis Stop: 09/04/16 15:00 Ephedrine Sulfate (Ephedrine In Ns) Confirm Administered Dose 25 mg .ROUTE .STK- MED ONE Stop: 09/04/16 08:41 Fentanyl (Sublimaze) Confirm Administered Dose 250 mcg .ROUTE .STK-MED ONE Stop: 09/04/16 07:37 Fentanyl (Sublimaze) 50 mcg IVPUSH Q5M PRN PRN Reason: Pain Stop: 09/04/16 12:00 Fentanyl (Sublimaze) 50 mcg IVPUSH Q5M PRN PRN Reason: Pain Stop: 09/04/16 15:00 Furosemide (Lasix) 20 mg IVPUSH DAILY [facility] Last Admin: 09/08/16 09:32 Dose: 20 mg Glycopyrrolate () Confirm Administered Dose 1 mg .ROUTE .STK-MED ONE Stop: 09/04/16 10:49 Hydromorphone HCl (Dilaudid) Confirm Administered Dose 1 mg .ROUTE .STK-MED ONE Stop: 09/04/16 08:48 Hydromorphone HCl (Dilaudid) 0.5 mg IVPUSH Q15M PRN PRN Reason: severe pain Stop: 09/04/16 09:16 Hydromorphone HCl (Dilaudid) Confirm Administered Dose 1 mg .ROUTE .STK-MED ONE Stop: 09/04/16 10:49 Hydromorphone HCl (Dilaudid) 0.5 mg IVPUSH Q2H PRN PRN Reason: Pain (severe 7-10) Last Admin: 09/05/16 11:57 Dose: 0.5 mg Hydromorphone HCl (Dilaudid) 0.5 mg IVPUSH Q15M PRN PRN Reason: severe pain Stop: 09/04/16 12:40 Last Admin: 09/04/16 12:54 Dose: 0.5 mg Hydromorphone HCl (Dilaudid) 0.5 mg IVPUSH Q1H PRN PRN Reason: PAIN Hydromorphone HCl (Dilaudid) 1 mg IVPUSH Q2H PRN PRN Reason: pain Last Admin: 09/07/16 10:29 Dose: 1 mg Hydromorphone HCl (Dilaudid Customer Insight Analyst 6 Mg In Ns 30 Ml) 6 mg IV ASDIRECTED PRN; Protocol PRN Reason: Pain Last Admin: 09/05/16 21:52 Dose: 6 mg Lactated Ringer's (Ringers, Lactated) 1,000 mls @ 125 mls/hr IV ASDIRECTED [facility] Stop: 09/04/16 23:00 Last Admin: 09/04/16 07:40 Dose: 125 mls/hr Lidocaine HCl (Xylocaine-Mpf 1%) Confirm Administered Dose 4 mls @ as directed .ROUTE .STK-MED ONE Stop: 09/04/16 07:37 Lidocaine HCl (Xylocaine-Mpf 1%) Confirm Administered Dose 4 mls @ as directed .ROUTE .STK-MED ONE Stop: 09/04/16 07:51 Cefoxitin Sodium 2 gm/ Premix 50 mls @ 100 mls/hr IV ONETIME ONE Stop: 09/04/16 08:44 Last Admin: 09/04/16 08:05 Dose: 100 mls/hr Lactated Ringer's (Ringers, Lactated) Confirm Administered Dose 1,000 mls @ as directed .ROUTE .STK-MED ONE Stop: 09/04/16 08:56 Acetaminophen (Ofirmev) 100 mls @ 400 mls/hr IV NOW ONE Stop: 09/04/16 09:14 Last Admin: 09/04/16 08:53 Dose: 400 mls/hr Lactated Ringer's (Ringers, Lactated) Confirm Administered Dose 1,000 mls @ as directed .ROUTE .STK-MED ONE Stop: 09/04/16 10:47 Lactated Ringer's (Ringers, Lactated) 1,000 mls @ 125 mls/hr IV ASDIRECTED [facility] Last Admin: 09/05/16 13:01 Dose: 125 mls/hr Cefoxitin Sodium 2 gm/ Premix 50 mls @ 100 mls/hr IV Q6H [facility] Stop: 09/05/16 08:29 Last Admin: 09/05/16 08:24 Dose: 100 mls/hr Ertapenem 1 gm/ Sodium (Chloride) 100 mls @ 100 mls/hr IV DAILY [facility] Last Admin: 09/06/16 08:52 Dose: 100 mls/hr Sodium Chloride (Normal Saline) 1,000 mls @ 100 mls/hr IV ASDIRECTED [facility] Last Admin: 09/06/16 07:38 Dose: 100 mls/hr Sodium Chloride (Normal Saline) 1,000 mls @ 25 mls/hr IV ASDIRECTED [facility] Last Admin: 09/06/16 08:03 Dose: 25 mls/hr Ketamine HCl (Ketalar) Confirm Administered Dose 500 mg .ROUTE .STK-MED ONE Stop: 09/04/16 09:03 Ketorolac Tromethamine (Toradol) Confirm Administered Dose 30 mg .ROUTE .STK- MED ONE Stop: 09/04/16 09:31 Ketorolac Tromethamine (Toradol) 30 mg IM Q6H PRN PRN Reason: Pain Stop: 09/05/16 06:01 Ketorolac Tromethamine (Toradol) 30 mg IVPUSH Q6H PRN PRN Reason: Pain (moderate 4-6) Stop: 09/05/16 10:31 Last Admin: 09/05/16 06:41 Dose: 30 mg Lidocaine/Epinephrine (Xylocaine 1% With Epinephrine 1:100,000) Confirm Administered Dose 20 ml .ROUTE .STK-MED ONE Stop: 09/04/16 07:12 Lidocaine/Sodium Bicarbonate (Buffered Lidocaine 1% In Ns 8.4%) 0.25 ml .XX ONETIME PRN PRN Reason: Prior to IV Start Stop: 09/04/16 18:00 Last Admin: 09/04/16 07:40 Dose: 0.25 ml Midazolam HCl (Versed 1 Mg/Ml) Confirm Administered Dose 2 mg .ROUTE .STK-MED ONE Stop: 09/04/16 07:37 Neostigmine Methylsulfate (Neostigmine) Confirm Administered Dose 5 mg .ROUTE .STK-MED ONE Stop: 09/04/16 10:49 Ondansetron HCl (Zofran) 4 mg IVPUSH ONETIME PRN PRN Reason: Nausea/Vomiting Stop: 09/04/16 12:00 Ondansetron HCl (Zofran) Confirm Administered Dose 4 mg .ROUTE .STK-MED ONE Stop: 09/04/16 09:31 Ondansetron HCl (Zofran) 4 mg IVPUSH ONETIME PRN PRN Reason: Nausea/Vomiting Stop: 09/04/16 15:00 Pneumococcal Polyvalent Vaccine (Pneumovax 23) 0.5 ml IM .ONCE ONE Stop: 09/04/16 14:52 Propofol (Diprivan 20 Ml) Confirm Administered Dose 800 mg .ROUTE .STK-MED ONE Stop: 09/04/16 07:37 Rocuronium [place] (Zemuron) Confirm Administered Dose 50 mg .ROUTE .STK-MED ONE Stop: 09/04/16 07:51 Sodium Chloride (Saline Flush) 10 ml FLUSH ASDIRECTED PRN PRN Reason: Keep Vein Open Stop: 09/04/16 18:00 Zolpidem Tartrate (Ambien) 5 mg PO BEDTIME PRN PRN Reason: Insomnia - Exam Wound/Incisions: healing well, no drainage Abdomen: soft, no tenderness, distension (mild to moderate) - Problem List Review Problem List Initiated/Reviewed/Updated: Yes - My Orders Last 24 Hours: Active Orders 24 hr Category Date Time Status Full Liquid Diet [DIET] Diet 09/07/16 Lunch Active Furosemide [Lasix] Med 09/08/16 09:50 Ordered 20 mg PO DAILY PRN HYDROmorphone [Dilaudid] Med 09/08/16 09:51 Ordered 0.5 mg IM Q2H PRN Potassium Chloride [Klor-Con M20] Med 09/07/16 09:00 Active 20 meq PO BID Medication Orders Lorazepam (Ativan) 0.5 mg PO BID PRN PRN Reason: Anxiety Last Admin: 09/08/16 09:32 Dose: 0.5 mg Admin: 09/07/16 20:32 Dose: 0.5 mg Admin: 09/06/16 08:51 Dose: 0.5 mg Admin: 09/05/16 11:23 Dose: 0.5 mg Admin: 09/04/16 23:09 Dose: 0.5 mg Metoprolol Tartrate (Lopressor) 12.5 mg PO BID [facility] Last Admin: 09/08/16 09:31 Dose: 12.5 mg Admin: 09/07/16 20:31 Dose: 12.5 mg Admin: 09/07/16 08:45 Dose: 12.5 mg Admin: 09/06/16 20:16 Dose: 12.5 mg Admin: 09/06/16 08:49 Dose: 12.5 mg Admin: 09/05/16 21:56 Dose: 12.5 mg Admin: 09/05/16 08:18 Dose: 12.5 mg Admin: 09/04/16 21:00 Dose: 12.5 mg Ondansetron HCl (Zofran) 4 mg IVPUSH Q6H PRN PRN Reason: Nausea/Vomiting Last Admin: 09/06/16 19:07 Dose: 4 mg Admin: 09/04/16 17:57 Dose: 4 mg Oxycodone/Acetaminophen (Percocet 325-5 Mg) 2 tab PO Q4H PRN PRN Reason: Pain (moderate 4-6) Last Admin: 09/08/16 06:10 Dose: 2 tab Admin: 09/07/16 20:32 Dose: 2 tab Admin: 09/07/16 16:25 Dose: 2 tab Admin: 09/05/16 16:34 Dose: 2 tab Admin: 09/05/16 12:27 Dose: 2 tab Admin: 09/05/16 08:22 Dose: 2 tab Admin: 09/05/16 04:16 Dose: 2 tab Admin: 09/05/16 00:32 Dose: 2 tab Admin: 09/04/16 20:58 Dose: 2 tab Admin: 09/04/16 18:06 Dose: 2 tab Potassium Chloride (Klor-Con M20) 20 meq PO BID [facility] Last Admin: 09/08/16 09:32 Dose: 20 meq Admin: 09/07/16 20:32 Dose: 20 meq Admin: 09/07/16 08:45 Dose: 20 meq Sertraline HCl (Zoloft) 50 mg PO DAILY [facility] Last Admin: 09/08/16 09:31 Dose: 50 mg Admin: 09/07/16 08:48 Dose: 50 mg Admin: 09/06/16 08:52 Dose: 50 mg Admin: 09/05/16 08:17 Dose: 50 mg Admin: 09/04/16 16:39 Dose: Sodium Chloride (Saline Flush) 10 ml FLUSH ASDIRECTED PRN PRN Reason: Keep Vein Open - Assessment Assessment (Free Text/Narrative):: awaiting return of bowel function - Plan Plan (Free Text/Narrative):: same considering dulcolax suppository in AM
[2016-09-09] MEDS: Acetaminophen/oxyCODONE 325-5 MG Tab PO PRN ×2 (04:24→09:51)
--- NOTE | 2016-09-09 08:39 | PCM.SURGPN ---
- General Info Date of Service: 09/09/16 Functional Status: Reports: pain controlled, tolerating diet, ambulating, urinating - Review of Systems Gastrointestinal: Reports: No symptoms, Flatus - Patient Data Vitals - most recent: Last Vital Signs Temp 37.0 C 09/09/16 08:24 Pulse 94 09/09/16 08:24 Resp 14 09/09/16 08:24 BP 131/79 09/09/16 08:24 Pulse Ox 97 09/09/16 08:24 Weight - most recent: 54.431 kg I&O - last 24 hours: Intake & Output 09/08/16 09/09/16 09/09/16 22:59 06:59 14:59 Intake Total 650 100 Balance 650 100 Med Orders - Current: Current Medications Furosemide (Lasix) 20 mg PO DAILY PRN PRN Reason: Edema Hydromorphone HCl (Dilaudid) 0.5 mg IM Q2H PRN PRN Reason: Pain Lorazepam (Ativan) 0.5 mg PO BID PRN PRN Reason: Anxiety Last Admin: 09/08/16 21:35 Dose: 0.5 mg Metoprolol Tartrate (Lopressor) 12.5 mg PO BID [facility] Last Admin: 09/08/16 21:34 Dose: 12.5 mg Oxycodone/Acetaminophen (Percocet 325-5 Mg) 2 tab PO Q4H PRN PRN Reason: Pain (moderate 4-6) Last Admin: 09/09/16 04:24 Dose: 2 tab Potassium Chloride (Klor-Con M20) 20 meq PO BID [facility] Last Admin: 09/08/16 21:33 Dose: 20 meq Sertraline HCl (Zoloft) 50 mg PO DAILY [facility] Last Admin: 09/08/16 09:31 Dose: 50 mg Discontinued Medications Acetaminophen (Tylenol) 650 mg PO NOW ONE Stop: 09/06/16 18:40 Last Admin: 09/06/16 18:46 Dose: 650 mg Bupivacaine HCl/Epinephrine Bitart (Marcaine 0.5%/Epinephrine 1:200,000) Confirm Administered Dose 50 ml .ROUTE .STK-MED ONE Stop: 09/04/16 07:12 Bupivacaine HCl/Epinephrine Bitart (Marcaine 0.5%/Epinephrine 1:200,000) 30 ml INJECT ONETIME ONE Stop: 09/06/16 10:51 Last Admin: 09/07/16 19:45 Dose: Not Given Cyclobenzaprine HCl (Flexeril) 10 mg PO Q8H PRN PRN Reason: Spasms Last Admin: 09/08/16 06:11 Dose: 10 mg Dexamethasone (Dexamethasone) Confirm Administered Dose 20 mg .ROUTE .STK-MED ONE Stop: 09/04/16 09:31 Diphenhydramine HCl (Benadryl) 12.5 mg IVPUSH Q6H PRN PRN Reason: pruritis Stop: 09/04/16 12:00 Diphenhydramine HCl (Benadryl) 25 mg IVPUSH Q6H PRN PRN Reason: pruritis Stop: 09/04/16 15:00 Ephedrine Sulfate (Ephedrine In Ns) Confirm Administered Dose 25 mg .ROUTE .STK- MED ONE Stop: 09/04/16 08:41 Fentanyl (Sublimaze) Confirm Administered Dose 250 mcg .ROUTE .STK-MED ONE Stop: 09/04/16 07:37 Fentanyl (Sublimaze) 50 mcg IVPUSH Q5M PRN PRN Reason: Pain Stop: 09/04/16 12:00 Fentanyl (Sublimaze) 50 mcg IVPUSH Q5M PRN PRN Reason: Pain Stop: 09/04/16 15:00 Furosemide (Lasix) 20 mg IVPUSH DAILY [facility] Last Admin: 09/08/16 09:32 Dose: 20 mg Glycopyrrolate () Confirm Administered Dose 1 mg .ROUTE .STK-MED ONE Stop: 09/04/16 10:49 Hydromorphone HCl (Dilaudid) Confirm Administered Dose 1 mg .ROUTE .STK-MED ONE Stop: 09/04/16 08:48 Hydromorphone HCl (Dilaudid) 0.5 mg IVPUSH Q15M PRN PRN Reason: severe pain Stop: 09/04/16 09:16 Hydromorphone HCl (Dilaudid) Confirm Administered Dose 1 mg .ROUTE .STK-MED ONE Stop: 09/04/16 10:49 Hydromorphone HCl (Dilaudid) 0.5 mg IVPUSH Q2H PRN PRN Reason: Pain (severe 7-10) Last Admin: 09/05/16 11:57 Dose: 0.5 mg Hydromorphone HCl (Dilaudid) 0.5 mg IVPUSH Q15M PRN PRN Reason: severe pain Stop: 09/04/16 12:40 Last Admin: 09/04/16 12:54 Dose: 0.5 mg Hydromorphone HCl (Dilaudid) 0.5 mg IVPUSH Q1H PRN PRN Reason: PAIN Hydromorphone HCl (Dilaudid) 1 mg IVPUSH Q2H PRN PRN Reason: pain Last Admin: 09/07/16 10:29 Dose: 1 mg Hydromorphone HCl (Dilaudid Wholesale Account Manager 6 Mg In Ns 30 Ml) 6 mg IV ASDIRECTED PRN; Protocol PRN Reason: Pain Last Admin: 09/05/16 21:52 Dose: 6 mg Lactated Ringer's (Ringers, Lactated) 1,000 mls @ 125 mls/hr IV ASDIRECTED [facility] Stop: 09/04/16 23:00 Last Admin: 09/04/16 07:40 Dose: 125 mls/hr Lidocaine HCl (Xylocaine-Mpf 1%) Confirm Administered Dose 4 mls @ as directed .ROUTE .STK-MED ONE Stop: 09/04/16 07:37 Lidocaine HCl (Xylocaine-Mpf 1%) Confirm Administered Dose 4 mls @ as directed .ROUTE .STK-MED ONE Stop: 09/04/16 07:51 Cefoxitin Sodium 2 gm/ Premix 50 mls @ 100 mls/hr IV ONETIME ONE Stop: 09/04/16 08:44 Last Admin: 09/04/16 08:05 Dose: 100 mls/hr Lactated Ringer's (Ringers, Lactated) Confirm Administered Dose 1,000 mls @ as directed .ROUTE .STK-MED ONE Stop: 09/04/16 08:56 Acetaminophen (Ofirmev) 100 mls @ 400 mls/hr IV NOW ONE Stop: 09/04/16 09:14 Last Admin: 09/04/16 08:53 Dose: 400 mls/hr Lactated Ringer's (Ringers, Lactated) Confirm Administered Dose 1,000 mls @ as directed .ROUTE .STK-MED ONE Stop: 09/04/16 10:47 Lactated Ringer's (Ringers, Lactated) 1,000 mls @ 125 mls/hr IV ASDIRECTED [facility] Last Admin: 09/05/16 13:01 Dose: 125 mls/hr Cefoxitin Sodium 2 gm/ Premix 50 mls @ 100 mls/hr IV Q6H [facility] Stop: 09/05/16 08:29 Last Admin: 09/05/16 08:24 Dose: 100 mls/hr Ertapenem 1 gm/ Sodium (Chloride) 100 mls @ 100 mls/hr IV DAILY [facility] Last Admin: 09/06/16 08:52 Dose: 100 mls/hr Sodium Chloride (Normal Saline) 1,000 mls @ 100 mls/hr IV ASDIRECTED [facility] Last Admin: 09/06/16 07:38 Dose: 100 mls/hr Sodium Chloride (Normal Saline) 1,000 mls @ [facility] Last Admin: 09/06/16 08:03 Dose: 25 mls/hr Ketamine HCl (Ketalar) Confirm Administered Dose 500 mg .ROUTE .STK-MED ONE Stop: 09/04/16 09:03 Ketorolac Tromethamine (Toradol) Confirm Administered Dose 30 mg .ROUTE .STK- MED ONE Stop: 09/04/16 09:31 Ketorolac Tromethamine (Toradol) 30 mg IM Q6H PRN PRN Reason: Pain Stop: 09/05/16 06:01 Ketorolac Tromethamine (Toradol) 30 mg IVPUSH Q6H PRN PRN Reason: Pain (moderate 4-6) Stop: 09/05/16 10:31 Last Admin: 09/05/16 06:41 Dose: 30 mg Lidocaine/Epinephrine (Xylocaine 1% With Epinephrine 1:100,000) Confirm Administered Dose 20 ml .ROUTE .STK-MED ONE Stop: 09/04/16 07:12 Lidocaine/Sodium Bicarbonate (Buffered Lidocaine 1% In Ns 8.4%) 0.25 ml .XX ONETIME PRN PRN Reason: Prior to IV Start Stop: 09/04/16 18:00 Last Admin: 09/04/16 07:40 Dose: 0.25 ml Midazolam HCl (Versed 1 Mg/Ml) Confirm Administered Dose 2 mg .ROUTE .STK-MED ONE Stop: 09/04/16 07:37 Neostigmine Methylsulfate (Neostigmine) Confirm Administered Dose 5 mg .ROUTE .STK-MED ONE Stop: 09/04/16 10:49 Ondansetron HCl (Zofran) 4 mg IVPUSH ONETIME PRN PRN Reason: Nausea/Vomiting Stop: 09/04/16 12:00 Ondansetron HCl (Zofran) Confirm Administered Dose 4 mg .ROUTE .STK-MED ONE Stop: 09/04/16 09:31 Ondansetron HCl (Zofran) 4 mg IVPUSH Q6H PRN PRN Reason: Nausea/Vomiting Last Admin: 09/06/16 19:07 Dose: 4 mg Ondansetron HCl (Zofran) 4 mg IVPUSH ONETIME PRN PRN Reason: Nausea/Vomiting Stop: 09/04/16 15:00 Pneumococcal Polyvalent Vaccine (Pneumovax 23) 0.5 ml IM .ONCE ONE Stop: 09/04/16 14:52 Propofol (Diprivan 20 Ml) Confirm Administered Dose 800 mg .ROUTE .STK-MED ONE Stop: 09/04/16 07:37 Rocuronium [place] (Zemuron) Confirm Administered Dose 50 mg .ROUTE .STK-MED ONE Stop: 09/04/16 07:51 Sodium Chloride (Saline Flush) 10 ml FLUSH ASDIRECTED PRN PRN Reason: Keep Vein Open Stop: 09/04/16 18:00 Sodium Chloride (Saline Flush) 10 ml FLUSH ASDIRECTED PRN PRN Reason: Keep Vein Open Zolpidem Tartrate (Ambien) 5 mg PO BEDTIME PRN PRN Reason: Insomnia - Exam Wound/Incisions: healing well, no drainage Abdomen: soft, no tenderness, no distension (Mild only) - Problem List Review Problem List Initiated/Reviewed/Updated: Yes - My Orders Last 24 Hours: Active Orders 24 hr Category Date Time Status Regular Diet [DIET] Diet 09/09/16 Breakfast Active Furosemide [Lasix] Med 09/08/16 09:50 Active 20 mg PO DAILY PRN HYDROmorphone [Dilaudid] Med 09/08/16 09:51 Active 0.5 mg IM Q2H PRN Medication Orders Furosemide (Lasix) 20 mg PO DAILY PRN PRN Reason: Edema Hydromorphone HCl (Dilaudid) 0.5 mg IM Q2H PRN PRN Reason: Pain Lorazepam (Ativan) 0.5 mg PO BID PRN PRN Reason: Anxiety Last Admin: 09/08/16 21:35 Dose: 0.5 mg Admin: 09/08/16 09:32 Dose: 0.5 mg Admin: 09/07/16 20:32 Dose: 0.5 mg Admin: 09/06/16 08:51 Dose: 0.5 mg Admin: 09/05/16 11:23 Dose: 0.5 mg Admin: 09/04/16 23:09 Dose: 0.5 mg Metoprolol Tartrate (Lopressor) 12.5 mg PO BID [facility] Last Admin: 09/08/16 21:34 Dose: 12.5 mg Admin: 09/08/16 09:31 Dose: 12.5 mg Admin: 09/07/16 20:31 Dose: 12.5 mg Admin: 09/07/16 08:45 Dose: 12.5 mg Admin: 09/06/16 20:16 Dose: 12.5 mg Admin: 09/06/16 08:49 Dose: 12.5 mg Admin: 09/05/16 21:56 Dose: 12.5 mg Admin: 09/05/16 08:18 Dose: 12.5 mg Admin: 09/04/16 21:00 Dose: 12.5 mg Oxycodone/Acetaminophen (Percocet 325-5 Mg) 2 tab PO Q4H PRN PRN Reason: Pain (moderate 4-6) Last Admin: 09/09/16 04:24 Dose: 2 tab Admin: 09/08/16 23:01 Dose: 2 tab Admin: 09/08/16 19:01 Dose: 2 tab Admin: 09/08/16 10:38 Dose: 2 tab Admin: 09/08/16 06:10 Dose: 2 tab Admin: 09/07/16 20:32 Dose: 2 tab Admin: 09/07/16 16:25 Dose: 2 tab Admin: 09/05/16 16:34 Dose: 2 tab Admin: 09/05/16 12:27 Dose: 2 tab Admin: 09/05/16 08:22 Dose: 2 tab Admin: 09/05/16 04:16 Dose: 2 tab Admin: 09/05/16 00:32 Dose: 2 tab Admin: 09/04/16 20:58 Dose: 2 tab Admin: 09/04/16 18:06 Dose: 2 tab Potassium Chloride (Klor-Con M20) 20 meq PO BID [facility] Last Admin: 09/08/16 21:33 Dose: 20 meq Admin: 09/08/16 09:32 Dose: 20 meq Admin: 09/07/16 20:32 Dose: 20 meq Admin: 09/07/16 08:45 Dose: 20 meq Sertraline HCl (Zoloft) 50 mg PO DAILY [facility] Last Admin: 09/08/16 09:31 Dose: 50 mg Admin: 09/07/16 08:48 Dose: 50 mg Admin: 09/06/16 08:52 Dose: 50 mg Admin: 09/05/16 08:17 Dose: 50 mg Admin: 09/04/16 16:39 Dose: - Assessment Assessment (Free Text/Narrative):: imp: Doing well with return of GI function. Should be able to tolerate a regular diet today. - Plan Plan (Free Text/Narrative):: If able to tolerate a regular diet then we'll discharge later today. I have given her post discharge instructions. She had no questions.
[2016-09-09] MEDS: Sertraline 50 MG Tab PO SCH (09:47)
[2016-09-09] MEDS: Metoprolol Tartrate 25 MG Tab PO SCH (09:47)
[2016-09-09] MEDS: Potassium Chloride 20 MEQ Tab.ER PO SCH (09:48)
[2016-09-09] MEDS ORDERED: Acetaminophen 325 MG Tab PO PRN (13:09)
[2016-09-09 16:51] VITALS: BP 134/91
--- NOTE | 2016-09-12 16:03 | PCM.DCSUM1 ---
Discharge Summary - Discharge Data Discharge Date: 09/09/16 Discharge Disposition: Home, Self-Care 01 Condition: Good - Discharge Diagnosis/Problem(s) (1) Biliary colic SNOMED Code(s): 83451288 ICD Code: K80.50 - CALCULUS OF BILE DUCT W/O CHOLANGITIS OR CHOLECYST W/O OBST Status: Resolved Priority: Medium (2) Hernia, umbilical SNOMED Code(s): 755650236, 216177225 ICD Code: K42.9 - UMBILICAL HERNIA WITHOUT OBSTRUCTION OR GANGRENE Status: Resolved Priority: Medium Qualifiers: Obstruction and gangrene presence: without obstruction or gangrene Qualified Code(s): K42.9 - Umbilical hernia without obstruction or gangrene (3) Rectal prolapse SNOMED Code(s): 36176802 ICD Code: K62.3 - RECTAL PROLAPSE Status: Resolved Priority: Medium - Patient Summary/Data Operative Procedure(s) Performed: 1. rectopexy. 2. sigmoid resection with side- to-side stapled anastomosis. 3. cholecytectomy. 4. repair of an umbilical hernia Complications: None Consults: None Recommended Follow-up Testing/Procedures: None Hospital Course: The patient underwent an uncomplicated procedure. She did have significant right upper quadrant abdominal discomfort and after workup this was found to be due to intraoperative retraction. After about 48 hours of severe pain her pain dramatically improved. By postoperative day 4 she passed gas and was tolerating a diet. After she satisfied all discharge criteria she was sent home in stable condition. - Patient Instructions Diet: Usual Diet as Tolerated Activity: As Tolerated, Rest and Relax Today Driving: Do Not Drive Showering/Bathing: May Shower Wound/Incision Care: Keep Operative Site/Wound Site Clean and Dry Notify Provider of: Fever, Increased Pain, Swelling and Redness, Drainage, Nausea and/or Vomiting - Discharge Plan Prescriptions/Med Rec: oxyCODONE HCl/Acetaminophen [Percocet 5-325 mg Tablet] 1 - 2 each PO Q6H PRN # 36 tablet PRN Reason: Pain Home Medications: Home Meds Cyanocobalamin (Vitamin B-12) [B-12] 2,500 mcg SL DAILY 02/09/15 [History] Ibuprofen [Motrin] 200 - 600 mg PO Q6H PRN #50 tablet 02/11/15 [Rx] LORazepam 0.5 mg PO BID PRN 08/31/16 [History] Metoprolol Tartrate 12.5 mg PO BID 08/31/16 [History] Sertraline HCl 50 mg PO DAILY 08/31/16 [History] Calcium Carbonate [Tums Ultra] 1,250 mg PO DAILY 09/04/16 [History] EPINEPHrine [Epipen] 0.3 mg IM ASDIRECTED PRN 09/04/16 [History] Multivitamin [Multivitamins] 1 cap PO DAILY 09/04/16 [History] oxyCODONE HCl/Acetaminophen [Percocet 5-325 mg Tablet] 1 - 2 each PO Q6H PRN # 36 tablet 09/09/16 [Rx] Patient Handouts: Smoking Hazards, Open Cholecystectomy, Open Hernia Repair, Care After, [id number], Smoking Cessation, Tips for Success, Rectal Prolapse, Adult, Open Colectomy Referrals: Elbert Blank MD [Physician] - 09/12/16 (Patient will call for appointment on Sunday for Sunday clinic visit. At that time one half of the farhana will be removed and she will have Steri-Strips placed.) Shay Friend MD [Primary Care Provider] - - Discharge Summary/Plan Comment DC Time >30 min.: No Discharge Summary/Plan Comment: Radiology for discharge plan discharge today. Verbal discharge instructions were provided to the patient. A handout was provided as well. She was asked to call me if there were any problems between discharge and her scheduled follow- up office visit. - Patient Data Vitals - Most Recent: Last Vital Signs Temp 37.0 C 09/09/16 08:24 Pulse 78 09/09/16 16:13 Resp 18 09/09/16 16:13 BP 134/91 H 09/09/16 16:13 Pulse Ox 94 L 09/09/16 16:13 Weight - Most Recent: 54.431 kg Med Orders - Current: Current Medications Discontinued Medications Acetaminophen (Tylenol) 650 mg PO NOW ONE Stop: 09/06/16 18:40 Last Admin: 09/06/16 18:46 Dose: 650 mg Acetaminophen (Tylenol) 650 mg PO Q4H PRN PRN Reason: Pain Last Admin: 09/09/16 13:53 Dose: 650 mg Bupivacaine HCl/Epinephrine Bitart (Marcaine 0.5%/Epinephrine 1:200,000) Confirm Administered Dose 50 ml .ROUTE .STK-MED ONE Stop: 09/04/16 07:12 Bupivacaine HCl/Epinephrine Bitart (Marcaine 0.5%/Epinephrine 1:200,000) 30 ml INJECT ONETIME ONE Stop: 09/06/16 10:51 Last Admin: 09/07/16 19:45 Dose: Not Given Cyclobenzaprine HCl (Flexeril) 10 mg PO Q8H PRN PRN Reason: Spasms Last Admin: 09/08/16 06:11 Dose: 10 mg Dexamethasone (Dexamethasone) Confirm Administered Dose 20 mg .ROUTE .STK-MED ONE Stop: 09/04/16 09:31 Diphenhydramine HCl (Benadryl) 12.5 mg IVPUSH Q6H PRN PRN Reason: pruritis Stop: 09/04/16 12:00 Diphenhydramine HCl (Benadryl) 25 mg IVPUSH Q6H PRN PRN Reason: pruritis Stop: 09/04/16 15:00 Ephedrine Sulfate (Ephedrine In Ns) Confirm Administered Dose 25 mg .ROUTE .STK- MED ONE Stop: 09/04/16 08:41 Fentanyl (Sublimaze) Confirm Administered Dose 250 mcg .ROUTE .STK-MED ONE Stop: 09/04/16 07:37 Fentanyl (Sublimaze) 50 mcg IVPUSH Q5M PRN PRN Reason: Pain Stop: 09/04/16 12:00 Fentanyl (Sublimaze) 50 mcg IVPUSH Q5M PRN PRN Reason: Pain Stop: 09/04/16 15:00 Furosemide (Lasix) 20 mg IVPUSH DAILY MOY Last Admin: 09/08/16 09:32 Dose: 20 mg Furosemide (Lasix) 20 mg PO DAILY PRN PRN Reason: Edema Glycopyrrolate () Confirm Administered Dose 1 mg .ROUTE .STK-MED ONE Stop: 09/04/16 10:49 Hydromorphone HCl (Dilaudid) Confirm Administered Dose 1 mg .ROUTE .STK-MED ONE Stop: 09/04/16 08:48 Hydromorphone HCl (Dilaudid) 0.5 mg IVPUSH Q15M PRN PRN Reason: severe pain Stop: 09/04/16 09:16 Hydromorphone HCl (Dilaudid) Confirm Administered Dose 1 mg .ROUTE .STK-MED ONE Stop: 09/04/16 10:49 Hydromorphone HCl (Dilaudid) 0.5 mg IVPUSH Q2H PRN PRN Reason: Pain (severe 7-10) Last Admin: 09/05/16 11:57 Dose: 0.5 mg Hydromorphone HCl (Dilaudid) 0.5 mg IVPUSH Q15M PRN PRN Reason: severe pain Stop: 09/04/16 12:40 Last Admin: 09/04/16 12:54 Dose: 0.5 mg Hydromorphone HCl (Dilaudid) 0.5 mg IVPUSH Q1H PRN PRN Reason: PAIN Hydromorphone HCl (Dilaudid) 1 mg IVPUSH Q2H PRN PRN Reason: pain Last Admin: 09/07/16 10:29 Dose: 1 mg Hydromorphone HCl (Dilaudid [employer] Care Worker 6 Mg In Ns 30 Ml) 6 mg IV ASDIRECTED PRN; Protocol PRN Reason: Pain Last Admin: 09/05/16 21:52 Dose: 6 mg Hydromorphone HCl (Dilaudid) 0.5 mg IM Q2H PRN PRN Reason: Pain Lactated Ringer's (Ringers, Lactated) 1,000 mls @ 125 mls/hr IV ASDIRECTED MOY Stop: 09/04/16 23:00 Last Admin: 09/04/16 07:40 Dose: 125 mls/hr Lidocaine HCl (Xylocaine-Mpf 1%) Confirm Administered Dose 4 mls @ as directed .ROUTE .STK-MED ONE Stop: 09/04/16 07:37 Lidocaine HCl (Xylocaine-Mpf 1%) Confirm Administered Dose 4 mls @ as directed .ROUTE .STK-MED ONE Stop: 09/04/16 07:51 Cefoxitin Sodium 2 gm/ Premix 50 mls @ 100 mls/hr IV ONETIME ONE Stop: 09/04/16 08:44 Last Admin: 09/04/16 08:05 Dose: 100 mls/hr Lactated Ringer's (Ringers, Lactated) Confirm Administered Dose 1,000 mls @ as directed .ROUTE .STK-MED ONE Stop: 09/04/16 08:56 Acetaminophen (Ofirmev) 100 mls @ 400 mls/hr IV NOW ONE Stop: 09/04/16 09:14 Last Admin: 09/04/16 08:53 Dose: 400 mls/hr Lactated Ringer's (Ringers, Lactated) Confirm Administered Dose 1,000 mls @ as directed .ROUTE .STK-MED ONE Stop: 09/04/16 10:47 Lactated Ringer's (Ringers, Lactated) 1,000 mls @ 125 mls/hr IV ASDIRECTED [facility] Last Admin: 09/05/16 13:01 Dose: 125 mls/hr Cefoxitin Sodium 2 gm/ Premix 50 mls @ 100 mls/hr IV Q6H [facility] Stop: 09/05/16 08:29 Last Admin: 09/05/16 08:24 Dose: 100 mls/hr Ertapenem 1 gm/ Sodium (Chloride) 100 mls @ 100 mls/hr IV DAILY [facility] Last Admin: 09/06/16 08:52 Dose: 100 mls/hr Sodium Chloride (Normal Saline) 1,000 mls @ 100 mls/hr IV ASDIRECTED [facility] Last Admin: 09/06/16 07:38 Dose: 100 mls/hr Sodium Chloride (Normal Saline) 1,000 mls @ 25 mls/hr IV ASDIRECTED [facility] Last Admin: 09/06/16 08:03 Dose: 25 mls/hr Ketamine HCl (Ketalar) Confirm Administered Dose 500 mg .ROUTE .STK-MED ONE Stop: 09/04/16 09:03 Ketorolac Tromethamine (Toradol) Confirm Administered Dose 30 mg .ROUTE .STK- MED ONE Stop: 09/04/16 09:31 Ketorolac Tromethamine (Toradol) 30 mg IM Q6H PRN PRN Reason: Pain Stop: 09/05/16 06:01 Ketorolac Tromethamine (Toradol) 30 mg IVPUSH Q6H PRN PRN Reason: Pain (moderate 4-6) Stop: 09/05/16 10:31 Last Admin: 09/05/16 06:41 Dose: 30 mg Lidocaine/Epinephrine (Xylocaine 1% With Epinephrine 1:100,000) Confirm Administered Dose 20 ml .ROUTE .STK-MED ONE Stop: 09/04/16 07:12 Lidocaine/Sodium Bicarbonate (Buffered Lidocaine 1% In Ns 8.4%) 0.25 ml .XX ONETIME PRN PRN Reason: Prior to IV Start Stop: 09/04/16 18:00 Last Admin: 09/04/16 07:40 Dose: 0.25 ml Lorazepam (Ativan) 0.5 mg PO BID PRN PRN Reason: Anxiety Last Admin: 09/08/16 21:35 Dose: 0.5 mg Metoprolol Tartrate (Lopressor) 12.5 mg PO BID [facility] Last Admin: 09/09/16 09:47 Dose: 12.5 mg Midazolam HCl (Versed 1 Mg/Ml) Confirm Administered Dose 2 mg .ROUTE .STK-MED ONE Stop: 09/04/16 07:37 Neostigmine Methylsulfate (Neostigmine) Confirm Administered Dose 5 mg .ROUTE .STK-MED ONE Stop: 09/04/16 10:49 Ondansetron HCl (Zofran) 4 mg IVPUSH ONETIME PRN PRN Reason: Nausea/Vomiting Stop: 09/04/16 12:00 Ondansetron HCl (Zofran) Confirm Administered Dose 4 mg .ROUTE .STK-MED ONE Stop: 09/04/16 09:31 Ondansetron HCl (Zofran) 4 mg IVPUSH Q6H PRN PRN Reason: Nausea/Vomiting Last Admin: 09/06/16 19:07 Dose: 4 mg Ondansetron HCl (Zofran) 4 mg IVPUSH ONETIME PRN PRN Reason: Nausea/Vomiting Stop: 09/04/16 15:00 Oxycodone/Acetaminophen (Percocet 325-5 Mg) 2 tab PO Q4H PRN PRN Reason: Pain (moderate 4-6) Last Admin: 09/09/16 09:51 Dose: 2 tab Pneumococcal Polyvalent Vaccine (Pneumovax 23) 0.5 ml IM .ONCE ONE Stop: 09/04/16 14:52 Potassium Chloride (Klor-Con M20) 20 meq PO BID [facility] Last Admin: 09/09/16 09:48 Dose: 20 meq Propofol (Diprivan 20 Ml) Confirm Administered Dose 800 mg .ROUTE .STK-MED ONE Stop: 09/04/16 07:37 Rocuronium [place] (Zemuron) Confirm Administered Dose 50 mg .ROUTE .STK-MED ONE Stop: 09/04/16 07:51 Sertraline HCl (Zoloft) 50 mg PO DAILY MOY Last Admin: 09/09/16 09:47 Dose: 50 mg Sodium Chloride (Saline Flush) 10 ml FLUSH ASDIRECTED PRN PRN Reason: Keep Vein Open Stop: 09/04/16 18:00 Sodium Chloride (Saline Flush) 10 ml FLUSH ASDIRECTED PRN PRN Reason: Keep Vein Open Zolpidem Tartrate (Ambien) 5 mg PO BEDTIME PRN PRN Reason: Insomnia *Q Meaningful Use (DIS) - VTE *Q VTE Criteria *Q: - Stroke *Q Stroke Criteria *Q: - AMI *Q AMI Criteria *Q:
== END 2016-09-09 16:55 | disposition home or self-care (01) | DRG 221 ==
LOC: JD.MS 07:17
PROVIDERS: ADMIT Surgery; ATTEND Surgery
PROC: 0WQF0ZZ Repair Abdominal Wall, Open Approach (ICD-10-PCS; principal; 2016-09-04)
PROC: 0FT40ZZ Resection of Gallbladder, Open Approach (ICD-10-PCS; principal; 2016-09-04)
PROC: 0DSP0ZZ Reposition Rectum, Open Approach (ICD-10-PCS; principal; 2016-09-04)
DX: K62.3 Rectal prolapse (principal); K80.50 Calculus of bile duct without cholangitis or cholecystitis without obstruction; K42.9 Umbilical hernia without obstruction or gangrene; F41.8 Other specified anxiety disorders; R00.0 Tachycardia, unspecified; R10.9 Unspecified abdominal pain
CPT/HCPCS: 00790; 36415; 76705; 76705-26; 80053; 81001; 85025; 94760; 94762; A9270-GY; J0694; J1100; J1170; J1335; J1885; J2250; J2405; J2704; J2710; J3010; J7030; J7040; J7050; J7120

== ENCOUNTER 2017-08-20 06:52 | Inpatient (IN) | payer OTHER ==
[~2017-08-20 06:52] MED LIST changes: +Bisacodyl 5 MG Tab PO PRN; -Bupivacaine 0.5%/EPINEPHrine 1:200,000 50 ML MDV ONE; -Lactated Ringers 1,000 ML IV SCH; -Lidocaine 1% with EPINEPHrine 1:100,000 20 ML MDV ONE; -Lidocaine 1%/Sod Bicarbonate in NS 8.4% 1 ML Syringe PRN; +Magnesium Hydroxide 400 MG/5 ML Susp 30 ML Cup PO PRN; +Morphine 2 MG/ML Syringe IVPUSH PRN; +Naloxone 0.4 MG/ML SDV IVPUSH PRN; +Ondansetron 4 MG/2 ML SDV IVPUSH PRN; +Sennosides 8.6 MG Tab PO PRN; -Sodium Chloride 0.9% 10 ML Syringe FLUSH PRN
[2017-08-20] MEDS ORDERED: ceFAZolin 1 GM Vial ONE ×2 (06:57→07:21)
[2017-08-20] MEDS ORDERED: fentaNYL 100 MCG/2 ML SDV ONE (06:58)
[2017-08-20] MEDS ORDERED: Propofol 200 MG/20 ML SDV ONE (06:58)
[2017-08-20] MEDS ORDERED: Midazolam 1 MG/ML 2 ML SDV ONE (06:58)
[2017-08-20] MEDS ORDERED: Sodium Chloride 0.9% 10 ML Syringe FLUSH PRN (07:00)
[2017-08-20] MEDS ORDERED: Lactated Ringers 1,000 ML IV SCH (07:00)
[2017-08-20] MEDS ORDERED: Lidocaine 1%/Sod Bicarbonate in NS 8.4% 1 ML Syringe IDERM PRN (07:00)
[2017-08-20] MEDS ORDERED: Iodine/Sodium Iodide 2% Tincture 30 ML Bottle ONE (07:21)
[2017-08-20] MEDS ORDERED: Vancomycin 1 GM SDV ONE (07:21)
[2017-08-20] MEDS ORDERED: Bupivacaine 0.25% 30 ML SDV ONE (07:21)
--- NOTE | 2017-08-20 07:21 | PCM.PREANE ---
Preanesthetic Assessment - Anesthesia/Transfusion/Family Hx Anesthesia History: Prior Anesthesia Without Reaction Family History of Anesthesia Reaction: No Transfusion History: No Prior Transfusion(s) Intubation History: Unknown - Review of Systems General: Other Pulmonary: Other (smoker, one pack per day) Cardiovascular: Other Gastrointestinal: No Symptoms, Constipation, Other (pts states that she has partial blockage in her bowels per her doctor. no symptoms) Neurological: No Symptoms (s/p cerival discectomy. no current symptoms) Other: Reports: Depression, Anxiety - Physical Assessment NPO Status Date: 08/19/17 NPO Status Time: 22:00 Pulse: 72 O2 Sat by Pulse Oximetry: 98 Respiratory Rate: 16 Blood Pressure: 125/76 Weight: 61.4 kg ASA Class: 2 Mental Status: Alert & Oriented x3 Dentition: Reports: Dentures (upper), Caries (bottom teeth) Thyro-Mental Finger Breadths: 3 Mouth Opening Finger Breadths: 3 ROM/Head Extension: Full Lungs: Clear to Auscultation, Normal Respiratory Effort Cardiovascular: Regular Rate, Regular Rhythm - Lab Values: Laboratory Last Values MRSA (PCR) Negative 08/15/17 15:34 - Allergies Allergies/Adverse Reactions: Allergies Allergy/AdvReac Type Severity Reaction Status Date / Time amoxicillin Allergy Swelling Verified 08/16/17 11:44 Penicillins Allergy Swelling Verified 08/16/17 11:44 venom-honey bee Allergy Anaphylactic Verified 08/16/17 11:44 [bee venom (honey bee)] Shock - Blood Blood Available: No Product(s) Available: None - Anesthesia Plan Pre-Op Medication Ordered: None Beta Michael: Metoprolol Med Last Dose Date: 08/20/17 Med Last Dose Time: 05:30 - Acknowledgements Anesthesia Type Planned: Spinal Pt an Appropriate Candidate for the Planned Anesthesia: Yes Alternatives and Risks of Anesthesia Discussed w Pt/Guardian: Yes Pt/Guardian Understands and Agrees with Anesthesia Plan: Yes PreAnesthesia Questionnaire - Past Health History Medical/Surgical History: Denies Medical/Surgical History Other HEENT History: upper denture Cardiovascular History: Reports: Hypertension Other Cardiovascular History: tachycardia Respiratory History: Other Respiratory History: Asthmatic bronchitis Gastrointestinal History: Reports: GERD, Other (See Below) Other Gastrointestinal History: Nonsurgical dumping syndrome, umbilical hernia, rectal prolapse, maldigestion syndrome, elevated liver enzymes, chronic epigastric pain, diarrhea, malnutrition Genitourinary History: Reports: Other (See Below) Other Genitourinary History: repair of vaginal cuff ACCOUNT SUPPORT ASSOCIATE History: Reports: , Other (See Below) Other OB/BYN History: ovarian cyst, pelvic floor dysfunction Musculoskeletal History: Reports: Arthritis, Osteoarthritis, Osteoporosis Other Musculoskeletal History: Right chronic knee pain Neurological History: Reports: None Psychiatric History: Reports: Addiction, Anxiety, Depression Endocrine/Metabolic History: Reports: Osteoporosis Hematologic History: Reports: None, Anemia Immunologic History: Reports: None Oncologic (Cancer) History: Reports: None Dermatologic History: Reports: None - Infectious Disease History Infectious Disease History: Reports: Chicken Pox, Other (See Below) Other Infectious Disease History: scarletina - Past Surgical History Head Surgeries/Procedures: Reports: None HEENT Surgical History: Reports: Tonsillectomy Other HEENT Surgeries/Procedures: myringotomy Cardiovascular Surgical History: Reports: None Respiratory Surgical History: Reports: None GI Surgical History: Reports: Colonoscopy, EGD, Small Bowel Other GI Surgeries/Procedures: umbilical hernia repair on 09/04/16 also a cholecystectomy performed on 09/04/16 Female Surgical History: Reports: Section, Hysterectomy, Oophorectomy Other Female Surgeries/Procedures: left ovary surgically removed Endocrine Surgical History: Reports: None Other Neurological Surgeries/Procedures: Cervical vertebral fusion Musculoskeletal Surgical History: Reports: Other (See Below) Other Musculoskeletal Surgeries/Procedures:: neck surgery-disk replacement Oncologic Surgical History: Reports: None Dermatological Surgical History: Reports: None - SUBSTANCE USE Smoking Status *Q: Current Every Day Smoker Tobacco Use Within Last Twelve Months: Cigarettes Second Hand Smoke Exposure: No Days Per Week of Alcohol Use: 0 Recreational Drug Use History: No - HOME MEDS Home Medications: Home Meds LORazepam 0.5 mg PO BID PRN 08/31/16 [History] Metoprolol Tartrate 12.5 mg PO BID 08/31/16 [History] Sertraline HCl 150 mg PO DAILY 08/31/16 [History] EPINEPHrine [Epipen] 0.3 mg IM ASDIRECTED PRN 09/04/16 [History] Multivitamin [Multivitamins] 1 cap PO DAILY 09/04/16 [History] Omeprazole 20 mg PO BID 08/16/17 [History] Polyethylene Glycol 3350 [MiraLAX] 17 gm PO DAILY 08/16/17 [History] Sennosides [Laxative] 175 mg PO BID 08/16/17 [History] Zolpidem Tartrate [Ambien] 10 mg PO BEDTIME 08/16/17 [History] - CURRENT (IN HOUSE) MEDS Current Meds: Current Medications Aspirin (Ecotrin) 325 mg PO BID MOY Bisacodyl (Dulcolax) 5 mg PO DAILY PRN PRN Reason: Constipation Morphine Sulfate 8 mg/Epinephrine HCl 0.3 mg/Cefuroxime Sodium 750 mg/Ketorolac Tromethamine 30 mg/Sodium Chloride 27.9 ml 0 mg .XX ONETIME ONE Stop: 08/20/17 08:21 Cyclobenzaprine HCl (Flexeril) 10 mg PO TID PRN PRN Reason: Spasms Docusate Sodium (Colace) 100 mg PO BID MOY Famotidine (Pepcid) 20 mg PO Q12H [facility] Lactated Ringer's (Ringers, Lactated) 1,000 mls @ 125 mls/hr IV ASDIRECTED [facility] Cefazolin Sodium/Dextrose 2 gm (/ Premix) 50 mls @ 100 mls/hr IV Q8H [facility] Stop: 08/20/17 23:14 Ketorolac Tromethamine (Toradol) 15 mg IVPUSH Q6H PRN PRN Reason: Pain Lidocaine/Sodium Bicarbonate (Buffered Lidocaine 1% In Ns 8.4%) 0.25 ml IDERM ONETIME PRN PRN Reason: Prior to IV Start Magnesium Hydroxide (Milk Of Magnesia) 30 ml PO BID PRN PRN Reason: Constipation Morphine Sulfate (Morphine) 2 mg IVPUSH Q2H PRN PRN Reason: Breakthrough Pain Naloxone HCl (Narcan) 0.1 mg IVPUSH Q5M PRN PRN Reason: Oversedation Ondansetron HCl (Zofran) 4 mg IVPUSH Q6H PRN PRN Reason: Nausea/Vomiting Oxycodone/Acetaminophen (Percocet 325-5 Mg) 1 - 2 tab PO Q4H PRN PRN Reason: Pain Senna (Senna) 8.6 mg PO BID PRN PRN Reason: Constipation Sodium Chloride (Saline Flush) 10 ml FLUSH ASDIRECTED PRN PRN Reason: Keep Vein Open
--- NOTE | 2017-08-20 07:23 | PCM.CONS ---
H&P History of Present Illness - General Date of Service: 08/20/17 Admit Problem/Dx: Admission Diagnosis/Problem Admission Diagnosis/Problem Osteoarthritis of knee Source of Information: Patient, Family, Provider, RN, RN Notes Reviewed, Other ( surgical notes ) History Limitations: Reports: No Limitations - History of Present Illness Initial Comments - Free Text/Narative: Mary Quevedo is a 37 yo female patient of Dr. Hussein who is post-operative day 0 of left TKA. Hospital medicine was consulted for post-operative medical care. At this time she is lying in bed. Pain in he knee is controlled, however she reports 8/10 abdominal pain. She any chest pain, shortness of breath, palpitations, nausea, or vomiting. She carries a history of: HTN, Tachycardia, asthma, GERD, nonsurgical dumping syndrome, rectal prolapse, maldigestion syndrome, elevated liver enzymes, chronic epigastric pain, diarrhea, malnutrition, ovarian cyst. pelvic floor dysfunction, arthritis, ostoearthritis , osteoperosis, addiction, anxiety, depression, anemia, umbilical hernia repair on 09/04/16, cholecystectomy on 09/04/16, patial colectomy and reported partial SBO in January . She is a current everyday smoker. She is a full code. Her primary care provider is Dr. Friend in [place]. Left Knee Pain Score (Numeric/FACES): 0 Left Upper Abdomen Pain Score (Numeric/FACES): 8 - Related Data Allergies/Adverse Reactions: Allergies Allergy/AdvReac Type Severity Reaction Status Date / Time amoxicillin Allergy Swelling Verified 08/16/17 11:44 Penicillins Allergy Swelling Verified 08/16/17 11:44 venom-honey bee Allergy Anaphylactic Verified 08/16/17 11:44 [bee venom (honey bee)] Shock Home Medications: Home Meds LORazepam 0.5 mg PO BID PRN 08/31/16 [History] Metoprolol Tartrate 12.5 mg PO BID 08/31/16 [History] Sertraline HCl 150 mg PO DAILY 08/31/16 [History] EPINEPHrine [Epipen] 0.3 mg IM ASDIRECTED PRN 09/04/16 [History] Multivitamin [Multivitamins] 1 cap PO DAILY 09/04/16 [History] Omeprazole 20 mg PO BID 08/16/17 [History] Polyethylene Glycol 3350 [MiraLAX] 17 gm PO DAILY 08/16/17 [History] Sennosides [Laxative] 175 mg PO BID 08/16/17 [History] Zolpidem Tartrate [Ambien] 10 mg PO BEDTIME 08/16/17 [History] Past Medical History - Past Health History Medical/Surgical History: Denies Medical/Surgical History Other HEENT History: upper denture Cardiovascular History: Reports: Hypertension Other Cardiovascular History: tachycardia Respiratory History: Other Respiratory History: Asthmatic bronchitis Gastrointestinal History: Reports: GERD, Other (See Below) Other Gastrointestinal History: Nonsurgical dumping syndrome, umbilical hernia, rectal prolapse, maldigestion syndrome, elevated liver enzymes, chronic epigastric pain, diarrhea, malnutrition Genitourinary History: Reports: Other (See Below) Other Genitourinary History: repair of vaginal cuff EMPLOYMENT [employer] History: Reports: , Other (See Below) Other OB/BYN History: ovarian cyst, pelvic floor dysfunction Musculoskeletal History: Reports: Arthritis, Osteoarthritis, Osteoporosis Other Musculoskeletal History: Right chronic knee pain Neurological History: Reports: None Psychiatric History: Reports: Addiction, Anxiety, Depression Endocrine/Metabolic History: Reports: Osteoporosis Hematologic History: Reports: None, Anemia Immunologic History: Reports: None Oncologic (Cancer) History: Reports: None Dermatologic History: Reports: None - Infectious Disease History Infectious Disease History: Reports: Chicken Pox, Other (See Below) Other Infectious Disease History: scarletina - Past Surgical History Head Surgeries/Procedures: Reports: None HEENT Surgical History: Reports: Tonsillectomy Other HEENT Surgeries/Procedures: myringotomy Cardiovascular Surgical History: Reports: None Respiratory Surgical History: Reports: None GI Surgical History: Reports: Colonoscopy, EGD, Small Bowel Other GI Surgeries/Procedures: umbilical hernia repair on 09/04/16 also a cholecystectomy performed on 09/04/16 Female Surgical History: Reports: Section, Hysterectomy, Oophorectomy Other Female Surgeries/Procedures: left ovary surgically removed Endocrine Surgical History: Reports: None Other Neurological Surgeries/Procedures: Cervical vertebral fusion Musculoskeletal Surgical History: Reports: Other (See Below) Other Musculoskeletal Surgeries/Procedures:: neck surgery-disk replacement Oncologic Surgical History: Reports: None Dermatological Surgical History: Reports: None Social & Family History - Family History Family Medical History: Noncontributory - Tobacco Use Smoking Status *Q: Current Every Day Smoker Years of Tobacco use: 26 Packs/Tins Daily: 1 Used Tobacco, but Quit: No Second Hand Smoke Exposure: No - Caffeine Use Caffeine Use: Reports: Soda Caffeine Use Comment: drinks one cold coffee daily - Alcohol Use Days Per Week of Alcohol Use: 0 - Recreational Drug Use Recreational Drug Use: No Drug Use in Last 12 Months: No H&P Review of Systems - Review of Systems: Review Of Systems: See Below General: Reports: No Symptoms HEENT: Reports: No Symptoms Pulmonary: Reports: No Symptoms. Denies: Shortness of Breath, Wheezing, Cough Cardiovascular: Reports: No Symptoms. Denies: Chest Pain, Palpitations, Dyspnea on Exertion, Edema Gastrointestinal: Reports: Abdominal Pain (LUQ "I think its a small bowel obstruction"). Denies: Constipation, Distension, Nausea, Vomiting Genitourinary: Reports: No Symptoms Musculoskeletal: Reports: Joint Pain Skin: Reports: No Symptoms Psychiatric: Reports: No Symptoms Neurological: Reports: No Symptoms Hematologic/Lymphatic: Reports: No Symptoms Immunologic: Reports: No Symptoms Exam - Exam Exam: See Below - Exam Quality Assessment: DVT Prophylaxis General: Alert, Oriented, Cooperative. No: Mild Distress HEENT: Conjunctiva Clear, EACs Clear, EOMI, Hearing Intact, Mucosa Moist & [place] , Posterior Pharynx Clear, PERRLA Neck: Supple, Trachea Midline Lungs: Clear to Auscultation, Normal Respiratory Effort Cardiovascular: Regular Rate, Regular Rhythm GI/Abdominal Exam: Normal Bowel Sounds, Soft, No Distention, Pelvis Stable, Tender (LUQ and suprapubic region ) (Female) Exam: Deferred Rectal (Female) Exam: Deferred Back Exam: Normal Inspection, Full Range of Motion Extremities: No Pedal Edema, Normal Capillary Refill, Leg Pain, Limited Range of Motion, Other (ALLEN bandage in place on left leg. Bandage is dry and intact. Cooling pack in place ) Peripheral Pulses: 2+: Radial (L), Radial (R), Posterior Tibial (L), Posterior Tibial (R), Dorsalis Pedis (L), Dorsalis Pedis (R) Skin: Warm, Dry, Intact Neurological: Cranial Nerves Intact (grossly ) Neuro Extensive - Mental Status: Alert, Oriented x3 Psychiatric: Alert Consult PN Assessment/Plan POD#: 0 Procedures: Procedures C-REACTIVE PROTEIN (04/15/15) CARCINOEMBRYONIC ANTIGEN (02/01/15) CHEST X-RAY 2VW FRONTAL&LATL (02/15/15) COLONOSCOPY AND BIOPSY (09/01/16) COMPLETE CBC W/AUTO DIFF WBC (08/29/16) COMPREHEN METABOLIC PANEL (04/15/15) CT ABD & PELV W/CONTRAST (03/18/15) CT ABD & PELVIS W/O CONTRAST (01/14/15) CT HEAD/BRAIN W/O DYE (05/20/16) CT NECK SPINE W/O DYE (05/20/16) DXA BONE DENSITY AXIAL (05/06/15) EMERGENCY DEPT VISIT (05/20/16) FLUORESCENT ANTIBODY TITER (04/15/15) FUNGUS JAMES ANTIBODY (04/15/15) HELICOBACTER PYLORI ANTIBODY (02/16/15) IMMUNOASSAY NONANTIBODY (04/15/15) IMMUNOASSAY TUMOR CA 125 (02/01/15) METABOLIC PANEL TOTAL CA (08/29/16) MR-STAPH DNA AMP PROBE (01/26/15) RBC SED RATE AUTOMATED (04/15/15) ROUTINE VENIPUNCTURE (08/29/16) THER/PROPH/DIAG INJ SC/IM (05/20/16) URINALYSIS AUTO W/SCOPE (02/15/15) URINE CULTURE/COLONY COUNT (02/15/15) VITAMIN D 25 HYDROXY (04/15/15) X-RAY EXAM OF ABDOMEN (08/11/16) (1) S/P total knee arthroplasty SNOMED Code(s): 0988922476147, 018376660, 2499458789418 Code(s): Z96.659 - PRESENCE OF UNSPECIFIED ARTIFICIAL KNEE JOINT Priority: High Current Visit: Yes Qualifiers: Laterality: left Qualified Code(s): Z96.652 - Presence of left artificial knee joint (2) Osteoarthritis SNOMED Code(s): 067114127 Code(s): M19.90 - UNSPECIFIED OSTEOARTHRITIS, UNSPECIFIED SITE Priority: High Current Visit: Yes Qualifiers: Osteoarthritis location: knee Osteoarthritis type: primary Laterality: left Qualified Code(s): M17.12 - Unilateral primary osteoarthritis, left knee (3) HTN (hypertension) SNOMED Code(s): 70488895 Code(s): I10 - ESSENTIAL (PRIMARY) HYPERTENSION Priority: Medium Current Visit: No Qualifiers: Hypertension type: unspecified Qualified Code(s): I10 - Essential (primary ) hypertension (4) Tachycardia SNOMED Code(s): 2984316 Code(s): R00.0 - TACHYCARDIA, UNSPECIFIED Priority: Medium Current Visit : No (5) Asthma SNOMED Code(s): 131486395 Code(s): J45.909 - UNSPECIFIED ASTHMA, UNCOMPLICATED Priority: Medium Current Visit: No Qualifiers: Asthma severity: unspecified severity Asthma persistence: unspecified Asthma complication type: unspecified Qualified Code(s): J45.909 - Unspecified asthma, uncomplicated (6) GERD (gastroesophageal reflux disease) SNOMED Code(s): 010972085 Code(s): K21.9 - GASTRO-ESOPHAGEAL REFLUX DISEASE WITHOUT ESOPHAGITIS Priority: Low Current Visit: No Qualifiers: Esophagitis presence: esophagitis presence not specified Qualified Code(s) : K21.9 - Gastro-esophageal reflux disease without esophagitis (7) Nonsurgical dumping syndrome SNOMED Code(s): 565221042, 594838536 Code(s): K30 - FUNCTIONAL DYSPEPSIA Priority: Medium Current Visit: No (8) Maldigestion syndrome SNOMED Code(s): 39785177 Code(s): K59.9 - FUNCTIONAL INTESTINAL DISORDER, UNSPECIFIED Priority: Medium Current Visit: No (9) Chronic epigastric pain SNOMED Code(s): 30625183 Code(s): R10.13 - EPIGASTRIC PAIN; G89.29 - OTHER CHRONIC PAIN Priority: High Current Visit: Yes (10) Diarrhea SNOMED Code(s): 90436247 Code(s): R19.7 - DIARRHEA, UNSPECIFIED Priority: Medium Current Visit: No Qualifiers: Diarrhea type: unspecified type Qualified Code(s): R19.7 - Diarrhea, unspecified (11) Malnutrition SNOMED Code(s): 96506804 Code(s): E46 - UNSPECIFIED PROTEIN-CALORIE MALNUTRITION Priority: Medium Current Visit: No Qualifiers: Malnutrition type: unspecified type Qualified Code(s): E46 - Unspecified protein-calorie malnutrition (12) Pelvic floor dysfunction SNOMED Code(s): 919532168, 743917851 Code(s): M62.89 - OTHER SPECIFIED DISORDERS OF MUSCLE Priority: Low Current Visit: No (13) Osteoporosis SNOMED Code(s): 20053348 Code(s): M81.0 - AGE-RELATED OSTEOPOROSIS W/O CURRENT PATHOLOGICAL FRACTURE Priority: Medium Current Visit: Yes Qualifiers: Osteoporosis type: unspecified Presence of current pathological fracture: unspecified Qualified Code(s): M81.0 - Age-related osteoporosis without current pathological fracture (14) Anxiety SNOMED Code(s): 87949842 Code(s): F41.9 - ANXIETY DISORDER, UNSPECIFIED Priority: Medium Current Visit: Yes (15) Other specified depressive episodes SNOMED Code(s): 92270290 Code(s): F32.89 - OTHER SPECIFIED DEPRESSIVE EPISODES Priority: Medium Current Visit: Yes (16) Anemia SNOMED Code(s): 521090517 Code(s): D64.9 - ANEMIA, UNSPECIFIED Priority: Medium Current Visit: No Qualifiers: Anemia type: unspecified type Qualified Code(s): D64.9 - Anemia, unspecified Problem List Initiated/Reviewed/Updated: Yes Plan: I/P: Acute: S/P left total knee arthroplasty - post-operative day 0 -DVT prophylaxis and pain management per primary care team -PT/OT -IS/RT -Monitor oxygen saturation -Titrate oxygen as needed -Vital signs stable -Monitor labs -Pre-operative Hgb was [number] Osteoarthritis of left knee -Pain management per primary care team Abdominal pain -Reports 10/26 LUQ and periumbilical pain post-surgically -No complaints prior to surgery -Reports partial small bowel obstruction in January -Abdominal x-ray shows nothing acute, air throughout colon -Hx/O chronic epigastric pain -History of multiple GI problems, surgeries -Patient is drinking [employer] while in room - no apparent pain/difficulty while drinking -Will defer to PCP for further work-up if warranted Chronic: HTN Tachycardia asthma GERD nonsurgical dumping syndrome rectal prolapse maldigestion syndrome elevated liver enzymes chronic epigastric pain diarrhea, malnutrition ovarian cyst partial colectomy pelvic floor dysfunction arthritis ostoearthritis osteoperosis addiction anxiety depression anemia umbilical hernia repair on 09/04/16 cholecystectomy on 09/04/16 reported partial SBO in January Plan: CM for discharge planning GI prophylaxis Home medications as indicated Other orders as listed above Routine AM labs She is a full code. Her PCP is Dr. Friend in [place] Thank you for allowing us to participate in the care of this patient!! Requesting Provider: Dr. Jovita Date Consult Requested: 08/20/17 Reason for Consult: Post-operative medical care Patient History Reviewed: Yes Admission H&P Reviewed: Yes Time Spent (in minutes): 90
[2017-08-20] MEDS ORDERED: Acetaminophen 325 MG Tab PO SCH (07:31)
[2017-08-20] MEDS ORDERED: Pregabalin 25 MG Cap PO SCH (07:31)
[2017-08-20] MEDS ORDERED: oxyCODONE ER 10 MG TAB.ER PO SCH (07:32)
--- NOTE | 2017-08-20 08:23 | CR ---
Chest: Portable view of the chest was obtained. Comparison: Prior chest x-ray of 02/15/15. Heart size and mediastinum are normal. Lungs are clear. Bony structures are unremarkable. Surgical clips are seen from prior cholecystectomy. Impression: 1. Nothing acute is seen on portable chest x-ray. Diagnostic code #2
[2017-08-20] MEDS ORDERED: Phenylephrine/Normal Saline 100 MCG/ML 10 ML Syringe ONE (08:36)
[2017-08-20] MEDS ORDERED: HYDROmorphone 0.5 MG/0.5 ML Syringe IVPUSH PRN (08:46)
[2017-08-20] MEDS ORDERED: diphenhydrAMINE 50 MG/ML SDV IVPUSH PRN (08:46)
[2017-08-20] MEDS ORDERED: fentaNYL 100 MCG/2 ML SDV IVPUSH PRN (08:46)
[2017-08-20] MEDS ORDERED: Lactated Ringers 1,000 ML ONE (08:48)
[2017-08-20] MEDS ORDERED: Ketorolac 30 MG/ML SDV ONE (08:48)
[2017-08-20] MEDS ORDERED: Ondansetron 4 MG/2 ML SDV ONE (08:48)
[2017-08-20] MEDS ORDERED: EPINEPHrine 1 MG/ML SDV ONE (08:54)
[2017-08-20] MEDS ORDERED: Ropivacaine 0.5% 5 MG/ML 30 ML SDV ONE (08:54)
[2017-08-20] MEDS: Morphine 8 MG, EPINEPHrine 0.3 MG, Cefuroxime 750 MG, Ketorolac 30 MG, Sodium Chloride ... ONE ×10 (09:09→13:54)
[2017-08-20] MEDS ORDERED: LORazepam 0.5 MG Tab PO PRN (09:26)
--- NOTE | 2017-08-20 09:29 | PCM.OPNOTE ---
- General Post-Op/Procedure Note Date of Surgery/Procedure: 08/20/17 Operative Procedure(s): left total knee arthroplasty Pre Op Diagnosis: left knee osteoarthrosis Post-Op Diagnosis: Same Anesthesia Technique: Local, MAC, Spinal Primary Surgeon: Harvey Hussein Anesthesia Provider: eBss Quiros Sterile Tech: Mary Monique Sterile Tech: Oliva Vann in mLs: 10 Complications: None Condition: Good Free Text/Narrative:: size 4 femur size 3 bitia 11mm poly 29x9
[2017-08-20] MEDS ORDERED: EPINEPHrine 1 MG/ML SDV IM PRN (09:36)
--- NOTE | 2017-08-20 09:48 | PCM.POSTAN ---
POST ANESTHESIA ASSESSMENT - MENTAL STATUS Mental Status: Alert, Oriented - VITAL SIGNS Pulse Rate: 69 SaO2: 96 Resp Rate: 12 Blood Pressure: 102/67 Temperature: 37.3 C - RESPIRATORY Respiratory Status: Respiratory Rate WNL, Airway Patent, O2 Saturation Stable - CARDIOVASCULAR CV Status: Pulse Rate WNL, Blood Pressure Stable - GASTROINTESTINAL GI Status: No Symptoms - PAIN Pain Score: 0 - POST OP HYDRATION Hydration Status: Adequate & Stable
--- NOTE | 2017-08-20 11:11 | CR ---
Left knee: AP and lateral portable views of the left knee were obtained. Comparison: No prior knee exam. Knee prosthesis is seen. Components are aligned. Soft tissue air is noted. Underlying bony structures are intact. Impression: 1. Satisfactory postoperative radiographic appearance of recently placed left knee prosthesis. Diagnostic code #2
[2017-08-20] MEDS: Acetaminophen/oxyCODONE 325-5 MG Tab PO PRN ×3 (11:48→21:42)
[2017-08-20] MEDS: Nicotine 21 MG/24 Hr Patch TRDERM SCH (14:06)
[2017-08-20] MEDS ORDERED: Scopolamine 1.5 MG Transdermal Patch TRDERM PRN (14:54)
[2017-08-20] MEDS: Ketorolac 15 MG/ML SDV IVPUSH PRN (14:56)
[2017-08-20] MEDS: Cyclobenzaprine 10 MG Tab PO PRN (14:57)
[2017-08-20] MEDS: ceFAZolin 2 GM in Premix Bag 1 BAG IV SCH ×2 (14:57→22:56)
--- NOTE | 2017-08-20 17:28 | PCM.SN ---
- Free Text/Narrative Note: Left selective femoral nerve block at the adductor canal for post-procedure pain control Time Out: 1104 Start: 1106 End: 1110 Chart reviewed. Consent signed. Questions answered. Appropriate monitors applied. Time out performed. Left mid-shaft femur evaluated with ultrasound. Scanning medially femur, I was able to identify the femoral artery in the adductor canal. The saphenous nerve was lateral to the artery. The skin was prepped lateral to the ultrasound probe with chlorahexadine. The 21ga 4 insulated block needle was inserted under direct ultrasound guidance into the adductor canal. 20mL of 0.5% ropivacaine with 1:200,000 epinephrine was injected cirmcumferentially about the nerve with intermittent negative aspiration every 5mL. Patient tolerated the procedure well. See pictures on progress note and vital signs on nurses notes. Block completed postoperatively. Denys Bonds CRNA
[2017-08-20] MEDS ORDERED: Zolpidem 10 MG Tab PO SCH (21:00)
[2017-08-20] MEDS ORDERED: Famotidine 20 MG Tab PO SCH (21:00)
[2017-08-20] MEDS ORDERED: SENNOSIDES PO SCH (21:00)
[2017-08-20] MEDS: Docusate Sodium 100 MG Cap PO SCH (21:42)
[2017-08-20] MEDS: Pantoprazole 40 MG Tab.CR PO SCH (21:42)
[2017-08-21] MEDS: Metoprolol Tartrate 25 MG Tab PO SCH ×2 (02:31→09:15)
[2017-08-21] MEDS: Acetaminophen/oxyCODONE 325-5 MG Tab PO PRN ×3 (02:37→11:20)
--- NOTE | 2017-08-21 06:28 | PCM.CONSN ---
- General Info Date of Service: 08/21/17 Admission Dx/Problem (Free Text): Admission Diagnosis/Problem Admission Diagnosis/Problem Osteoarthritis of knee Subjective Update: In to see Josey. She is lying in bed having a [employer] drink. She has baseline abdominal pain currently. No other concerns. Pain is controlled. is at bedside. Functional Status: Reports: Pain Controlled, Tolerating Diet, Ambulating, Urinating, Incentive Spirometry. Denies: New Symptoms - Review of Systems General: Reports: No Symptoms HEENT: Reports: No Symptoms Pulmonary: Reports: No Symptoms Cardiovascular: Reports: No Symptoms Gastrointestinal: Reports: Abdominal Pain (chronic - at baseline currently ). Denies: Constipation, Diarrhea, Nausea, Vomiting Genitourinary: Reports: No Symptoms Musculoskeletal: Reports: Joint Pain Skin: Reports: No Symptoms Neurological: Reports: No Symptoms Psychiatric: Reports: No Symptoms - Patient Data Vitals - Most Recent: Last Vital Signs Temp 97.7 F 08/20/17 23:03 Pulse 58 L 08/20/17 23:03 Resp 16 08/20/17 23:03 BP 98/66 08/20/17 23:03 Pulse Ox 91 L 08/20/17 23:03 Weight - Most Recent: 144 lb 3.2 oz I&O - Last 24 Hours: Intake & Output 08/20/17 08/20/17 08/21/17 14:59 22:59 06:59 Intake Total 200 50 500 Output Total 200 Balance 200 50 300 Med Orders - Current: Current Medications Aspirin (Ecotrin) 325 mg PO BID [facility] Bisacodyl (Dulcolax) 5 mg PO DAILY PRN PRN Reason: Constipation Cyclobenzaprine HCl (Flexeril) 10 mg PO TID PRN PRN Reason: Spasms Last Admin: 08/20/17 14:57 Dose: 10 mg Diphenhydramine HCl (Benadryl) 25 mg IVPUSH Q6H PRN PRN Reason: itching Docusate Sodium (Colace) 100 mg PO BID [facility] Last Admin: 08/20/17 21:42 Dose: 100 mg Epinephrine HCl (Adrenalin) 0.3 mg IM ASDIRECTED PRN PRN Reason: allergic reaction Cefazolin Sodium/Dextrose 2 gm (/ Premix) 50 mls @ 100 mls/hr IV Q8H [facility] Stop: 08/21/17 07:59 Last Admin: 08/20/17 22:56 Dose: 100 mls/hr Ketorolac Tromethamine (Toradol) 15 mg IVPUSH Q6H PRN PRN Reason: Pain Last Admin: 08/20/17 14:56 Dose: 15 mg Lorazepam (Ativan) 0.5 mg PO BID PRN PRN Reason: Anxiety Magnesium Hydroxide (Milk Of Magnesia) 30 ml PO BID PRN PRN Reason: Constipation Metoprolol Tartrate (Lopressor) 12.5 mg PO BID [facility] Last Admin: 08/21/17 02:31 Dose: Not Given Miscellaneous Information (Remove Patch) 0 ea TRDERM DAILY [facility] Miscellaneous Information (Remove Patch) 0 ea TRDERM Q72H [facility] Morphine Sulfate (Morphine) 2 mg IVPUSH Q2H PRN PRN Reason: Breakthrough Pain Multivitamins (Thera) 1 each PO DAILY [facility] Naloxone HCl (Narcan) 0.1 mg IVPUSH Q5M PRN PRN Reason: Oversedation Nicotine (Habitrol) 21 mg TRDERM DAILY [facility] Last Admin: 08/20/17 14:06 Dose: 21 mg Ondansetron HCl (Zofran) 4 mg IVPUSH Q6H PRN PRN Reason: Nausea/Vomiting Oxycodone/Acetaminophen (Percocet 325-5 Mg) 1 - 2 tab PO Q4H PRN PRN Reason: Pain Last Admin: 08/21/17 02:37 Dose: 2 tab Pantoprazole Sodium (Protonix) 40 mg PO BID [facility] Last Admin: 08/20/17 21:42 Dose: 40 mg Polyethylene Glycol (Miralax) 17 gm PO DAILY [facility] Scopolamine (Transderm-Scop) 1.5 mg TRDERM Q72H PRN PRN Reason: Nausea/Vomiting Senna (Senna) 8.6 mg PO BID PRN PRN Reason: Constipation Sertraline HCl (Zoloft) 150 mg PO DAILY [facility] Sodium Chloride (Saline Flush) 10 ml FLUSH ASDIRECTED PRN PRN Reason: Keep Vein Open Zolpidem Tartrate (Ambien) 10 mg PO BEDTIME [facility] Last Admin: 08/21/17 02:28 Dose: Not Given Discontinued Medications Acetaminophen (Tylenol) 975 mg PO NOW [facility] Stop: 08/20/17 08:30 Last Admin: 08/20/17 07:37 Dose: 975 mg Bupivacaine HCl (Marcaine 0.25%) Confirm Administered Dose 30 ml .ROUTE .K- MED ONE Stop: 08/20/17 07:22 Last Admin: 08/20/17 09:10 Dose: 30 ml Cefazolin Sodium (Ancef) Confirm Administered Dose 2 gm .ROUTE .STK-MED ONE Stop: 08/20/17 07:22 Last Admin: 08/20/17 09:02 Dose: 2 gm Morphine Sulfate 8 mg/Epinephrine HCl 0.3 mg/Cefuroxime Sodium 750 mg/Ketorolac Tromethamine 30 mg/Sodium Chloride 27.9 ml 0 mg .XX ONETIME ONE Stop: 08/20/17 08:21 Last Admin: 08/20/17 13:54 Dose: Not Given Famotidine (Pepcid) 20 mg PO Q12H [facility] Fentanyl (Sublimaze) 50 mcg IVPUSH Q5M PRN PRN Reason: pain Hydromorphone HCl (Dilaudid) 0.5 mg IVPUSH ONETIME PRN PRN Reason: Pain (severe 7-10) Last Admin: 08/20/17 18:49 Dose: 0.5 mg Lactated Ringer's (Ringers, Lactated) 1,000 mls @ 125 mls/hr IV ASDIRECTED [facility] Last Admin: 08/20/17 07:18 Dose: 125 mls/hr Iodine (Iodine 2% Mild Tincture) Confirm Administered Dose 30 ml .ROUTE .STK- MED ONE Stop: 08/20/17 07:22 Last Admin: 08/20/17 08:59 Dose: 18 ml Lidocaine/Sodium Bicarbonate (Buffered Lidocaine 1% In Ns 8.4%) 0.25 ml IDERM ONETIME PRN PRN Reason: Prior to IV Start Stop: 08/20/17 18:00 Non-Formulary Medication (Sennosides [Laxative]) 175 mg PO BID [facility] Oxycodone HCl (Oxycontin) 10 mg PO ONETIME [facility] Stop: 08/20/17 08:30 Last Admin: 08/20/17 07:38 Dose: 10 mg Pregabalin (Lyrica) 50 mg PO ONETIME [facility] Stop: 08/20/17 08:30 Last Admin: 08/20/17 07:38 Dose: 50 mg Tranexamic Acid (Cyklokapron) Confirm Administered Dose 1,000 mg .ROUTE .STK- MED ONE Stop: 08/20/17 07:22 Last Admin: 08/20/17 09:15 Dose: 1,000 mg Vancomycin HCl (Vancomycin) Confirm Administered Dose 2 gm .ROUTE .STK-MED ONE Stop: 08/20/17 07:22 Last Admin: 08/20/17 09:15 Dose: 2 gm - Exam Quality Assessment: DVT Prophylaxis General: Alert, Oriented, Cooperative, No Acute Distress HEENT: Pupils Equal, Pupils Reactive, EOMI, Mucous Membr. Moist/[place] Neck: Supple, Trachea Midline, No JVD Lungs: Clear to Auscultation, Normal Respiratory Effort Cardiovascular: Regular Rate, Regular Rhythm GI/Abdominal Exam: Normal Bowel Sounds, Soft, Non-Tender, No Distention (Female) Exam: Deferred Back Exam: Normal Inspection, Full Range of Motion Extremities: No Pedal Edema, Normal Capillary Refill, Leg Pain, Limited Range of Motion, Other (bandage on left leg. Cooling pack in place ) Peripheral Pulses: 2+: Radial (L), Radial (R), Posterior Tibial (L), Posterior Tibial (R), Dorsalis Pedis (L), Dorsalis Pedis (R) Skin: Warm, Dry, Intact Wound/Incisions: Dressing Dry and Intact, No Drainage Neurological: No New Focal Deficit Psy/Mental Status: Alert, Normal Affect, Normal Mood Consult PN Assessment/Plan POD#: 1 Procedures: Procedures C-REACTIVE PROTEIN (04/15/15) CARCINOEMBRYONIC ANTIGEN (02/01/15) CHEST X-RAY 2VW FRONTAL&LATL (02/15/15) COLONOSCOPY AND BIOPSY (09/01/16) COMPLETE CBC W/AUTO DIFF WBC (08/29/16) COMPREHEN METABOLIC PANEL (04/15/15) CT ABD & PELV W/CONTRAST (03/18/15) CT ABD & PELVIS W/O CONTRAST (01/14/15) CT HEAD/BRAIN W/O DYE (05/20/16) CT NECK SPINE W/O DYE (05/20/16) DXA BONE DENSITY AXIAL (05/06/15) EMERGENCY DEPT VISIT (05/20/16) FLUORESCENT ANTIBODY TITER (04/15/15) FUNGUS JAMES ANTIBODY (04/15/15) HELICOBACTER PYLORI ANTIBODY (02/16/15) IMMUNOASSAY NONANTIBODY (04/15/15) IMMUNOASSAY TUMOR CA 125 (02/01/15) METABOLIC PANEL TOTAL CA (08/29/16) MR-STAPH DNA AMP PROBE (01/26/15) RBC SED RATE AUTOMATED (04/15/15) ROUTINE VENIPUNCTURE (08/29/16) THER/PROPH/DIAG INJ SC/IM (05/20/16) URINALYSIS AUTO W/SCOPE (02/15/15) URINE CULTURE/COLONY COUNT (02/15/15) VITAMIN D 25 HYDROXY (04/15/15) X-RAY EXAM OF ABDOMEN (08/11/16) (1) S/P total knee arthroplasty SNOMED Code(s): 4037773576193, 326067494, 7476738910430 Code(s): Z96.659 - PRESENCE OF UNSPECIFIED ARTIFICIAL KNEE JOINT Priority: High Current Visit: Yes Qualifiers: Laterality: left Qualified Code(s): Z96.652 - Presence of left artificial knee joint (2) Osteoarthritis SNOMED Code(s): 637141651 Code(s): M19.90 - UNSPECIFIED OSTEOARTHRITIS, UNSPECIFIED SITE Priority: High Current Visit: Yes Qualifiers: Osteoarthritis location: knee Osteoarthritis type: primary Laterality: left Qualified Code(s): M17.12 - Unilateral primary osteoarthritis, left knee (3) HTN (hypertension) SNOMED Code(s): 38614076 Code(s): I10 - ESSENTIAL (PRIMARY) HYPERTENSION Priority: Medium Current Visit: No Qualifiers: Hypertension type: unspecified Qualified Code(s): I10 - Essential (primary ) hypertension (4) Tachycardia SNOMED Code(s): 1758873 Code(s): R00.0 - TACHYCARDIA, UNSPECIFIED Priority: Medium Current Visit : No (5) Asthma SNOMED Code(s): 409154305 Code(s): J45.909 - UNSPECIFIED ASTHMA, UNCOMPLICATED Priority: Medium Current Visit: No Qualifiers: Asthma severity: unspecified severity Asthma persistence: unspecified Asthma complication type: unspecified Qualified Code(s): J45.909 - Unspecified asthma, uncomplicated (6) GERD (gastroesophageal reflux disease) SNOMED Code(s): 242140435 Code(s): K21.9 - GASTRO-ESOPHAGEAL REFLUX DISEASE WITHOUT ESOPHAGITIS Priority: Low Current Visit: No Qualifiers: Esophagitis presence: esophagitis presence not specified Qualified Code(s) : K21.9 - Gastro-esophageal reflux disease without esophagitis (7) Nonsurgical dumping syndrome SNOMED Code(s): 254302219, 501226531 Code(s): K30 - FUNCTIONAL DYSPEPSIA Priority: Medium Current Visit: No (8) Maldigestion syndrome SNOMED Code(s): 71240778 Code(s): K59.9 - FUNCTIONAL INTESTINAL DISORDER, UNSPECIFIED Priority: Medium Current Visit: No (9) Chronic epigastric pain SNOMED Code(s): 10392894 Code(s): R10.13 - EPIGASTRIC PAIN; G89.29 - OTHER CHRONIC PAIN Priority: High Current Visit: Yes (10) Diarrhea SNOMED Code(s): 27887331 Code(s): R19.7 - DIARRHEA, UNSPECIFIED Priority: Medium Current Visit: No Qualifiers: Diarrhea type: unspecified type Qualified Code(s): R19.7 - Diarrhea, unspecified (11) Malnutrition SNOMED Code(s): 06178843 Code(s): E46 - UNSPECIFIED PROTEIN-CALORIE MALNUTRITION Priority: Medium Current Visit: No Qualifiers: Malnutrition type: unspecified type Qualified Code(s): E46 - Unspecified protein-calorie malnutrition (12) Pelvic floor dysfunction SNOMED Code(s): 439354903, 019392214 Code(s): M62.89 - OTHER SPECIFIED DISORDERS OF MUSCLE Priority: Low Current Visit: No (13) Osteoporosis SNOMED Code(s): 72394321 Code(s): M81.0 - AGE-RELATED OSTEOPOROSIS W/O CURRENT PATHOLOGICAL FRACTURE Priority: Medium Current Visit: Yes Qualifiers: Osteoporosis type: unspecified Presence of current pathological fracture: unspecified Qualified Code(s): M81.0 - Age-related osteoporosis without current pathological fracture (14) Anxiety SNOMED Code(s): 73951328 Code(s): F41.9 - ANXIETY DISORDER, UNSPECIFIED Priority: Medium Current Visit: Yes (15) Other specified depressive episodes SNOMED Code(s): 40537173 Code(s): F32.89 - OTHER SPECIFIED DEPRESSIVE EPISODES Priority: Medium Current Visit: Yes (16) Anemia SNOMED Code(s): 049468720 Code(s): D64.9 - ANEMIA, UNSPECIFIED Priority: Medium Current Visit: No Qualifiers: Anemia type: unspecified type Qualified Code(s): D64.9 - Anemia, unspecified Problem List Initiated/Reviewed/Updated: Yes My Orders Last 24 Hours: My Active Orders 08/20/17 12:39 Abdomen 2V AP Flat Upright [CR] Stat 08/20/17 14:00 Nicotine [Habitrol] 21 mg TRDERM DAILY 08/20/17 14:54 Scopolamine [Transderm-Scop] 1.5 mg TRDERM Q72H PRN 08/21/17 05:11 MAGNESIUM [CHEM] AM 08/21/17 09:00 Remove Patch 0 ea TRDERM DAILY 08/22/17 05:11 MAGNESIUM [CHEM] AM 08/23/17 05:11 MAGNESIUM [CHEM] AM 08/23/17 15:15 Remove Patch 0 ea TRDERM Q72H 08/24/17 05:11 MAGNESIUM [CHEM] AM Plan: I/P: Acute: S/P left total knee arthroplasty - post-operative day 1 -DVT prophylaxis and pain management per primary care team -PT/OT -IS/RT -Monitor oxygen saturation -Titrate oxygen as needed -Vital signs stable -Monitor labs -Pre-operative Hgb was 15.2; Now12.2, -Pre-operative eGFR was 106; Now >60 Osteoarthritis of left knee -Pain management per primary care team Abdominal pain, improved - currently at baseline -Reports 8/10 LUQ and periumbilical pain post-surgically -No complaints prior to surgery -Reports partial small bowel obstruction in January -Abdominal x-ray shows nothing acute, air throughout colon -Hx/O chronic epigastric pain -Saw Dr. Casarez in [place] on 08/14/17 - he believes 2/2 symptomatic adhesions - no recommendations -History of multiple GI problems, surgeries -Patient is drinking [employer] while in room - no apparent pain/difficulty while drinking -Will defer to PCP/Dr. Casarez for further work-up if warranted Chronic: HTN Tachycardia asthma GERD nonsurgical dumping syndrome rectal prolapse maldigestion syndrome elevated liver enzymes chronic epigastric pain diarrhea, malnutrition ovarian cyst partial colectomy pelvic floor dysfunction arthritis ostoearthritis osteoperosis addiction anxiety depression anemia umbilical hernia repair on 09/04/16 cholecystectomy on 09/04/16 reported partial SBO in January Plan: CM for discharge planning GI prophylaxis Home medications as indicated Other orders as listed above Routine AM labs She is a full code. Her PCP is Dr. Friend in [place] Thank you for allowing us to participate in the care of this patient!! From a hospitalist standpoint Josey is doing well. She has been working with therapies. She has been drinking [employer] multiple times through her stay without issues. She has urinated. Labs look good. She is cleared from discharge pending primary team approval.
[2017-08-21] MEDS: ceFAZolin 2 GM in Premix Bag 1 BAG IV SCH (06:34)
--- NOTE | 2017-08-21 08:44 | PCM.SURGPN ---
- General Info Date of Service: 08/21/17 POD#: 1 Functional Status: Reports: Pain Controlled, Tolerating Diet, Ambulating, Urinating, Incentive Spirometry, Other (The pt had abdominal pain yesterday and this has improved.) - Patient Data Vitals - Most Recent: Last Vital Signs Temp 97.7 F 08/20/17 23:03 Pulse 66 08/21/17 06:32 Resp 16 08/21/17 06:32 BP 98/66 08/20/17 23:03 Pulse Ox 95 08/21/17 06:44 Weight - Most Recent: 144 lb 3.2 oz I&O - Last 24 Hours: Intake & Output 08/20/17 08/21/17 08/21/17 22:59 06:59 14:59 Intake Total 350 500 Output Total 450 200 Balance -100 300 Lab Results Last 24 Hrs: Laboratory Results - last 24 hr 08/21/17 08/21/17 08/21/17 Range/Units 06:25 06:25 06:25 WBC 4.24 (3.98-10.04) K/mm3 RBC 4.09 (3.98-5.22) M/mm3 Hgb 12.2 (11.2-15.7) gm/L Hct 38.5 (34.1-44.9) % MCV 94.1 (79.4-94.8) fl MCH 29.8 (25.6-32.2) pg MCHC 31.7 L (32.2-35.5) g/dl RDW Std Deviation 43.8 (36.4-46.3) fL Plt Count 103 L (182-369) K/mm3 MPV 11.7 (9.4-12.3) fl Sodium 136 (136-145) mEq/L Potassium 4.2 (3.5-5.1) mEq/L Chloride 103 (98-107) mEq/L Carbon Dioxide 29 (21-32) mEq/L Anion Gap 8.2 (5-15) BUN 13 (7-18) mg/dL Creatinine 0.8 (0.55-1.02) mg/dL Est Cr Clr Drug Dosing 92.72 mL/min Estimated GFR (MDRD) > 60 (>60) mL/min BUN/Creatinine Ratio 16.3 (14-18) Glucose 90 (74-106) mg/dL Calcium 8.6 (8.5-10.1) mg/dL Magnesium 1.5 L (1.8-2.4) mg/dl Total Bilirubin 0.4 (0.2-1.0) mg/dL AST 274 H (15-37) U/L ALT 358 H (14-59) U/L Alkaline Phosphatase 72 (46-116) U/L Total Protein 5.2 L (6.4-8.2) g/dl Albumin 3.0 L (3.4-5.0) g/dl Globulin 2.2 gm/dL Albumin/Globulin Ratio 1.4 (1-2) Med Orders - Current: Current Medications Bisacodyl (Dulcolax) 5 mg PO DAILY PRN PRN Reason: Constipation Cyclobenzaprine HCl (Flexeril) 10 mg PO TID PRN PRN Reason: Spasms Last Admin: 08/20/17 14:57 Dose: 10 mg Diphenhydramine HCl (Benadryl) 25 mg IVPUSH Q6H PRN PRN Reason: itching Docusate Sodium (Colace) 100 mg PO BID [facility] Last Admin: 08/20/17 21:42 Dose: 100 mg Epinephrine HCl (Adrenalin) 0.3 mg IM ASDIRECTED PRN PRN Reason: allergic reaction Ketorolac Tromethamine (Toradol) 15 mg IVPUSH Q6H PRN PRN Reason: Pain Last Admin: 08/20/17 14:56 Dose: 15 mg Lorazepam (Ativan) 0.5 mg PO BID PRN PRN Reason: Anxiety Magnesium Hydroxide (Milk Of Magnesia) 30 ml PO BID PRN PRN Reason: Constipation Metoprolol Tartrate (Lopressor) 12.5 mg PO BID [facility] Last Admin: 08/21/17 02:31 Dose: Not Given Miscellaneous Information (Remove Patch) 0 ea TRDERM DAILY [facility] Miscellaneous Information (Remove Patch) 0 ea TRDERM Q72H [facility] Morphine Sulfate (Morphine) 2 mg IVPUSH Q2H PRN PRN Reason: Breakthrough Pain Multivitamins (Thera) 1 each PO DAILY [facility] Naloxone HCl (Narcan) 0.1 mg IVPUSH Q5M PRN PRN Reason: Oversedation Nicotine (Habitrol) 21 mg TRDERM DAILY [facility] Last Admin: 08/20/17 14:06 Dose: 21 mg Ondansetron HCl (Zofran) 4 mg IVPUSH Q6H PRN PRN Reason: Nausea/Vomiting Oxycodone/Acetaminophen (Percocet 325-5 Mg) 1 - 2 tab PO Q4H PRN PRN Reason: Pain Last Admin: 08/21/17 06:33 Dose: 2 tab Pantoprazole Sodium (Protonix) 40 mg PO BID [facility] Last Admin: 08/20/17 21:42 Dose: 40 mg Polyethylene Glycol (Miralax) 17 gm PO DAILY [facility] Rivaroxaban (Xarelto) 10 mg PO DAILY [facility] Scopolamine (Transderm-Scop) 1.5 mg TRDERM Q72H PRN PRN Reason: Nausea/Vomiting Senna (Senna) 8.6 mg PO BID PRN PRN Reason: Constipation Sertraline HCl (Zoloft) 150 mg PO DAILY [facility] Sodium Chloride (Saline Flush) 10 ml FLUSH ASDIRECTED PRN PRN Reason: Keep Vein Open Zolpidem Tartrate (Ambien) 10 mg PO BEDTIME [facility] Last Admin: 08/21/17 02:28 Dose: Not Given Discontinued Medications Acetaminophen (Tylenol) 975 mg PO NOW [facility] Stop: 08/20/17 08:30 Last Admin: 08/20/17 07:37 Dose: 975 mg Aspirin (Ecotrin) 325 mg PO BID [facility] Bupivacaine HCl (Marcaine 0.25%) Confirm Administered Dose 30 ml .ROUTE .STK- MED ONE Stop: 08/20/17 07:22 Last Admin: 08/20/17 09:10 Dose: 30 ml Cefazolin Sodium (Ancef) Confirm Administered Dose 2 gm .ROUTE .STK-MED ONE Stop: 08/20/17 07:22 Last Admin: 08/20/17 09:02 Dose: 2 gm Cefazolin Sodium (Ancef) Confirm Administered Dose 2 gm .ROUTE .STK-MED ONE Stop: 08/20/17 06:58 Morphine Sulfate 8 mg/Epinephrine HCl 0.3 mg/Cefuroxime Sodium 750 mg/Ketorolac Tromethamine 30 mg/Sodium Chloride 27.9 ml 0 mg .XX ONETIME ONE Stop: 08/20/17 08:21 Last Admin: 08/20/17 13:54 Dose: Not Given Epinephrine HCl (Adrenalin) Confirm Administered Dose 1 mg .ROUTE .STK-MED ONE Stop: 08/20/17 08:55 Famotidine (Pepcid) 20 mg PO Q12H [facility] Fentanyl (Sublimaze) 50 mcg IVPUSH Q5M PRN PRN Reason: pain Fentanyl (Sublimaze) Confirm Administered Dose 100 mcg .ROUTE .STK-MED ONE Stop: 08/20/17 06:59 Hydromorphone HCl (Dilaudid) 0.5 mg IVPUSH ONETIME PRN PRN Reason: Pain (severe 7-10) Last Admin: 08/20/17 18:49 Dose: 0.5 mg Lactated Ringer's (Ringers, Lactated) 1,000 mls @ 125 mls/hr IV ASDIRECTED [facility] Last Admin: 08/20/17 07:18 Dose: 125 mls/hr Cefazolin Sodium/Dextrose 2 gm (/ Premix) 50 mls @ 100 mls/hr IV Q8H [facility] Stop: 08/21/17 07:59 Last Admin: 08/21/17 06:34 Dose: 100 mls/hr Lactated Ringer's (Ringers, Lactated) Confirm Administered Dose 1,000 mls @ as directed .ROUTE .STK-MED ONE Stop: 08/20/17 08:49 Iodine (Iodine 2% Mild Tincture) Confirm Administered Dose 30 ml .ROUTE .STK- MED ONE Stop: 08/20/17 07:22 Last Admin: 08/20/17 08:59 Dose: 18 ml Ketorolac Tromethamine (Toradol) Confirm Administered Dose 30 mg .ROUTE .STK- MED ONE Stop: 08/20/17 08:49 Lidocaine/Sodium Bicarbonate (Buffered Lidocaine 1% In Ns 8.4%) 0.25 ml IDERM ONETIME PRN PRN Reason: Prior to IV Start Stop: 08/20/17 18:00 Midazolam HCl (Versed 1 Mg/Ml) Confirm Administered Dose 2 mg .ROUTE .STK-MED ONE Stop: 08/20/17 06:59 Non-Formulary Medication (Sennosides [Laxative]) 175 mg PO BID [facility] Ondansetron HCl (Zofran) Confirm Administered Dose 4 mg .ROUTE .STK-MED ONE Stop: 08/20/17 08:49 Oxycodone HCl (Oxycontin) 10 mg PO ONETIME [facility] Stop: 08/20/17 08:30 Last Admin: 08/20/17 07:38 Dose: 10 mg Phenylephrine HCl (Phenylephrine In Ns 100 Mcg/Ml) Confirm Administered Dose 1 mg .ROUTE .STK-MED ONE Stop: 08/20/17 08:37 Pregabalin (Lyrica) 50 mg PO ONETIME [facility] Stop: 08/20/17 08:30 Last Admin: 08/20/17 07:38 Dose: 50 mg Propofol (Diprivan 20 Ml) Confirm Administered Dose 600 mg .ROUTE .STK-MED ONE Stop: 08/20/17 06:59 Ropivacaine (Naropin 0.5%) Confirm Administered Dose 30 ml .ROUTE .STK-MED ONE Stop: 08/20/17 08:55 Tranexamic Acid (Cyklokapron) Confirm Administered Dose 1,000 mg .ROUTE .STK- MED ONE Stop: 08/20/17 07:22 Last Admin: 08/20/17 09:15 Dose: 1,000 mg Vancomycin HCl (Vancomycin) Confirm Administered Dose 2 gm .ROUTE .STK-MED ONE Stop: 08/20/17 07:22 Last Admin: 08/20/17 09:15 Dose: 2 gm - Exam Wound/Incisions: Dressing Dry and Intact General: Alert, Cooperative, No Acute Distress Extremities: Other (NVS intact for LLE. Tonya's negative.) - Problem List Review Problem List Initiated/Reviewed/Updated: Yes - My Orders Last 24 Hours: Active Orders 24 hr Category Date Time Status Cooling Warming Measures [RC] ASDIRECTED Care 08/20/17 08:46 Active Notify Provider [RC] ASDIRECTED Care 08/20/17 08:46 Active Oxygen Therapy [RC] ASDIRECTED Care 08/20/17 08:46 Inactive Ready for Discharge [RC] PER UNIT ROUTINE Care 08/21/17 07:40 Active Regular Diet [DIET] Diet 08/20/17 Lunch Active Abdomen 2V AP Flat Upright [CR] Stat Exams 08/20/17 12:39 Taken MAGNESIUM [CHEM] AM Lab 08/22/17 05:11 Ordered MAGNESIUM [CHEM] AM Lab 08/23/17 05:11 Ordered MAGNESIUM [CHEM] AM Lab 08/24/17 05:11 Ordered Docusate Sodium [Colace] Med 08/20/17 21:00 Active 100 mg PO BID EPINEPHrine [Adrenalin] Med 08/20/17 09:36 Active 0.3 mg IM ASDIRECTED PRN LORazepam [Ativan] Med 08/20/17 09:26 Active 0.5 mg PO BID PRN Metoprolol Tartrate [Lopressor] Med 08/20/17 21:00 Active 12.5 mg PO BID Multivitamins,Therapeutic [Thera] Med 08/21/17 09:00 Active 1 each PO DAILY Nicotine [Habitrol] Med 08/20/17 14:00 Active 21 mg TRDERM DAILY Pantoprazole [ProTONIX] Med 08/20/17 21:00 Active 40 mg PO BID Polyethylene Glycol 3350 [MiraLAX] Med 08/21/17 09:00 Active 17 gm PO DAILY Remove Patch Med 08/21/17 09:00 Active 0 ea TRDERM DAILY Remove Patch Med 08/23/17 15:15 Active 0 ea TRDERM Q72H Rivaroxaban [Xarelto] Med 08/21/17 09:00 Active 10 mg PO DAILY Scopolamine [Transderm-Scop] Med 08/20/17 14:54 Active 1.5 mg TRDERM Q72H PRN Sertraline [Zoloft] Med 08/21/17 09:00 Active 150 mg PO DAILY Zolpidem [Ambien] Med 08/20/17 21:00 Active 10 mg PO BEDTIME diphenhydrAMINE [Benadryl] Med 08/20/17 08:46 Active 25 mg IVPUSH Q6H PRN Medication Orders Bisacodyl (Dulcolax) 5 mg PO DAILY PRN PRN Reason: Constipation Cyclobenzaprine HCl (Flexeril) 10 mg PO TID PRN PRN Reason: Spasms Last Admin: 08/20/17 14:57 Dose: 10 mg Diphenhydramine HCl (Benadryl) 25 mg IVPUSH Q6H PRN PRN Reason: itching Docusate Sodium (Colace) 100 mg PO BID [facility] Last Admin: 08/20/17 21:42 Dose: 100 mg Epinephrine HCl (Adrenalin) 0.3 mg IM ASDIRECTED PRN PRN Reason: allergic reaction Ketorolac Tromethamine (Toradol) 15 mg IVPUSH Q6H PRN PRN Reason: Pain Last Admin: 08/20/17 14:56 Dose: 15 mg Lorazepam (Ativan) 0.5 mg PO BID PRN PRN Reason: Anxiety Magnesium Hydroxide (Milk Of Magnesia) 30 ml PO BID PRN PRN Reason: Constipation Metoprolol Tartrate (Lopressor) 12.5 mg PO BID [facility] Last Admin: 08/21/17 02:31 Dose: Miscellaneous Information (Remove Patch) 0 ea TRDERM DAILY [facility] Miscellaneous Information (Remove Patch) 0 ea TRDERM Q72H [facility] Morphine Sulfate (Morphine) 2 mg IVPUSH Q2H PRN PRN Reason: Breakthrough Pain Multivitamins (Thera) 1 each PO DAILY [facility] Naloxone HCl (Narcan) 0.1 mg IVPUSH Q5M PRN PRN Reason: Oversedation Nicotine (Habitrol) 21 mg TRDERM DAILY [facility] Last Admin: 08/20/17 14:06 Dose: 21 mg Ondansetron HCl (Zofran) 4 mg IVPUSH Q6H PRN PRN Reason: Nausea/Vomiting Oxycodone/Acetaminophen (Percocet 325-5 Mg) 1 - 2 tab PO Q4H PRN PRN Reason: Pain Last Admin: 08/21/17 06:33 Dose: 2 tab Admin: 08/21/17 02:37 Dose: 2 tab Admin: 08/20/17 21:42 Dose: 2 tab Admin: 08/20/17 16:08 Dose: 2 tab Admin: 08/20/17 11:48 Dose: 2 tab Pantoprazole Sodium (Protonix) 40 mg PO BID [facility] Last Admin: 08/20/17 21:42 Dose: 40 mg Polyethylene Glycol (Miralax) 17 gm PO DAILY [facility] Rivaroxaban (Xarelto) 10 mg PO DAILY [facility] Scopolamine (Transderm-Scop) 1.5 mg TRDERM Q72H PRN PRN Reason: Nausea/Vomiting Senna (Senna) 8.6 mg PO BID PRN PRN Reason: Constipation Sertraline HCl (Zoloft) 150 mg PO DAILY [facility] Sodium Chloride (Saline Flush) 10 ml FLUSH ASDIRECTED PRN PRN Reason: Keep Vein Open Zolpidem Tartrate (Ambien) 10 mg PO BEDTIME [facility] Last Admin: 08/21/17 02:28 Dose: - Assessment Assessment (Free Text/Narrative):: POD#1 - left TKA - Plan Plan (Free Text/Narrative):: 1. Hgb 12.2. 2. Xarelto for VTE prophylaxis. SCDs, TEDs. 3. Discharge to home today. The pt will have the assistance of her and mother. 4. The pt is to f/u with PCP re: chronic GI issues. The pt's case was discussed with Dr. Hussein.
[2017-08-21] MEDS ORDERED: Magnesium Oxide 400 MG Tab PO ONE (08:58)
[2017-08-21] MEDS ORDERED: Aspirin 325 MG Tab.EC PO SCH (09:00)
[2017-08-21] MEDS ORDERED: Rivaroxaban 10 MG Tab PO SCH (09:00)
[2017-08-21] MEDS ORDERED: Sertraline 50 MG Tab PO SCH (09:00)
[2017-08-21] MEDS ORDERED: Multivitamins,Therapeutic Tab PO SCH (09:00)
[2017-08-21] MEDS: Pantoprazole 40 MG Tab.CR PO SCH (09:11)
[2017-08-21] MEDS: Docusate Sodium 100 MG Cap PO SCH (09:11)
[2017-08-21] MEDS: Polyethylene Glycol 3350 Powder 17 GM Packet PO SCH ×2 (09:13→09:23)
[2017-08-21] MEDS: Nicotine 21 MG/24 Hr Patch TRDERM SCH ×2 (09:17→12:47)
--- NOTE | 2017-08-21 09:25 | CR ---
Abdomen: Supine and decubitus views were obtained of the abdomen. Comparison: Prior abdominal x-ray of 08/11/16 is available. Scattered gas within colon and small bowel is noted. This appears within normal limits. Two surgical clips are seen within the pelvis. Calcifications are identified within the pelvis compatible with phleboliths. Soft tissue density seen within the pelvis most likely representing slightly distended urine filled bladder. Prior cholecystectomy appears to be present. No free air is identified. Bony structures are unremarkable. Impression: 1. Incidental findings. Nothing acute is seen. Diagnostic code #2 I agree with preliminary report from [facility], finalized at 08/20/17, 3:04 PM Central Time
[2017-08-21] MEDS: Ketorolac 15 MG/ML SDV IVPUSH PRN (10:03)
[2017-08-21] MEDS: Cyclobenzaprine 10 MG Tab PO PRN (10:03)
[2017-08-21 13:08] VITALS: BP 123/82
--- NOTE | 2017-08-23 15:59 | PCM.DCSUM1 ---
Discharge Summary - Hospital Course Brief History: Josey is a 37 yo female who underwent left TKA with Dr. Hussein on 08-20-2017. The procedure was completed under spinal anesthesia. The pt tolerated the procedure well and was admitted to the Medical-Surgical Unit. Medical management was provided by the Hospitalist service. The pt's Hospital course was remarkable for an episode of abdominal pain. The pt's complaints were promptly evaluated by the Hospitalist service and resolved. The pt's Hgb on POD#1 was 12.2. On POD#1, Xarelto 10mg PO daily was initiated for VTE prophylaxis. SCDs and TEDs were also ordered. A Mepilex dressing was placed at the incision site at the time of surgery and remained clean and dry. The pt participated in P.T. and O.T. and progressed well. HThe pt was allowed to WBAT and used a FWW for mobility. On POD#1, the pt was deemed appropriate to discharge to home with her . - Discharge Data Discharge Date: 08/21/17 Discharge Disposition: Home, Self-Care 01 Condition: Good - Patient Summary/Data Operative Procedure(s) Performed: left total knee arthroplasty Consults: Consultations 08/20/17 06:43 OT Evaluation and Treatment [CONS] Routine PT Evaluation and Treatment [CONS] Routine 08/20/17 06:44 Consult to Physician [CONS] Routine - Patient Instructions Diet: Usual Diet as Tolerated Activity: Apply Ice, As Tolerated, Elevate Extremity, Full Weight Bearing Driving: Do Not Drive Showering/Bathing: May Shower Showering/Bathing, Other: Do not soak in a tub, pool, whirlpool. Wound/Incision Care: Keep Operative Site/Wound Site Clean and Dry, Do NOT Change Dressing Notify Provider of: Fever, Increased Pain, Swelling and Redness, Drainage, Nausea and/or Vomiting Other/Special Instructions: Please get up and moving around every hour while awake. This helps to prevent blood clots. Please use your walker and have help with mobility as needed. Please take 325mg Aspirin TWICE daily. The aspirin is being used for blood clot prevention and not for pain management so please do not miss a dose of the medication. It is very important that you quit smoking. Tobacco use increases your risk of blood clots and infection. At home, please complete the exercises that you learned during the Hospital stay. Schedule for physical therapy. Use the pain medication as needed. The medication may cause drowsiness and constipation. Contact your primary care provider for instructions if you are constipated. You may use a stool softener like docusate sodium or Colace 100mg twice daily and/or a laxative like Miralax daily for constipation. Increase your water and fiber intake while you are using the pain medication. Please try to WEAN from use of the pain medication as soon as able. Wear the ANCELMO hose during the day and you may remove these at night. Elevate the limb to decrease swelling. Place ice to the area often. Place a towel between your skin and the blue pad. Use the incentive spirometer often. Take deep breaths throughout the day. Increase your protein intake while you are healing. If you have diabetes, please closely monitor your blood sugars and notify your primary care provider with abnormal values. Call the Clinic with questions or concerns - [phone]. - Discharge Plan Prescriptions/Med Rec: Acetaminophen/oxyCODONE [Percocet 325-5 MG] 1 - 2 tab PO Q6H PRN #60 tablet PRN Reason: Pain Nicotine [Nicotine Patch] 21 mg TD DAILY 30 Days #30 patch Rivaroxaban [Xarelto] 10 mg PO DAILY #40 tablet Home Medications: Home Meds LORazepam 0.5 mg PO BID PRN 08/31/16 [History] Metoprolol Tartrate 12.5 mg PO BID 08/31/16 [History] Sertraline HCl 150 mg PO DAILY 08/31/16 [History] EPINEPHrine [Epipen] 0.3 mg IM ASDIRECTED PRN 09/04/16 [History] Multivitamin [Multivitamins] 1 cap PO DAILY 09/04/16 [History] Omeprazole 20 mg PO BID 08/16/17 [History] Polyethylene Glycol 3350 [MiraLAX] 17 gm PO DAILY 08/16/17 [History] Sennosides [Laxative] 175 mg PO BID 08/16/17 [History] Zolpidem Tartrate [Ambien] 10 mg PO BEDTIME 08/16/17 [History] Acetaminophen/oxyCODONE [Percocet 325-5 MG] 1 - 2 tab PO Q6H PRN #60 tablet 08/03 [Rx] Bisacodyl [Dulcolax] 5 mg PO DAILY PRN tablet 08/21/17 [Rx] Docusate Sodium [Colace] 100 mg PO BID cap 08/21/17 [Rx] Magnesium Hydroxide [Milk of Magnesia] 30 ml PO BID PRN cup 08/21/17 [Rx] Nicotine [Habitrol] 21 mg TRDERM DAILY patch 08/21/17 [Rx] Nicotine [Nicotine Patch] 21 mg TD DAILY 30 Days #30 patch 08/21/17 [Rx] Remove Patch 0 ea TRDERM DAILY each 08/21/17 [Rx] Rivaroxaban [Xarelto] 10 mg PO DAILY #40 tablet 08/21/17 [Rx] Patient Handouts: Steps to Quit Smoking, [id number], Total Knee Replacement, Care After, [id number] Referrals: Mary Monique PA-C [Physician Bag Shaker] - (Please follow up with Mary Monique on 08/28/17 at 1130, and a second on 09/04/17 at 0915.) - Patient Data Vitals - Most Recent: Last Vital Signs Temp 97.9 F 08/21/17 12:20 Pulse 66 08/21/17 12:20 Resp 16 08/21/17 06:32 BP 123/82 08/21/17 12:20 Pulse Ox 97 08/21/17 12:20 Weight - Most Recent: 144 lb 3.2 oz Med Orders - Current: Current Medications Discontinued Medications Acetaminophen (Tylenol) 975 mg PO NOW [facility] Stop: 08/20/17 08:30 Last Admin: 08/20/17 07:37 Dose: 975 mg Aspirin (Ecotrin) 325 mg PO BID [facility] Bisacodyl (Dulcolax) 5 mg PO DAILY PRN PRN Reason: Constipation Bupivacaine HCl (Marcaine 0.25%) Confirm Administered Dose 30 ml .ROUTE .STK- MED ONE Stop: 08/20/17 07:22 Last Admin: 08/20/17 09:10 Dose: 30 ml Cefazolin Sodium (Ancef) Confirm Administered Dose 2 gm .ROUTE .STK-MED ONE Stop: 08/20/17 07:22 Last Admin: 08/20/17 09:02 Dose: 2 gm Cefazolin Sodium (Ancef) Confirm Administered Dose 2 gm .ROUTE .STK-MED ONE Stop: 08/20/17 06:58 Morphine Sulfate 8 mg/Epinephrine HCl 0.3 mg/Cefuroxime Sodium 750 mg/Ketorolac Tromethamine 30 mg/Sodium Chloride 27.9 ml 0 mg .XX ONETIME ONE Stop: 08/20/17 08:21 Last Admin: 08/20/17 13:54 Dose: Not Given Cyclobenzaprine HCl (Flexeril) 10 mg PO TID PRN PRN Reason: Spasms Last Admin: 08/21/17 10:03 Dose: 10 mg Diphenhydramine HCl (Benadryl) 25 mg IVPUSH Q6H PRN PRN Reason: itching Docusate Sodium (Colace) 100 mg PO BID [facility] Last Admin: 08/21/17 09:11 Dose: 100 mg Epinephrine HCl (Adrenalin) 0.3 mg IM ASDIRECTED PRN PRN Reason: allergic reaction Epinephrine HCl (Adrenalin) Confirm Administered Dose 1 mg .ROUTE .STK-MED ONE Stop: 08/20/17 08:55 Famotidine (Pepcid) 20 mg PO Q12H [facility] Fentanyl (Sublimaze) 50 mcg IVPUSH Q5M PRN PRN Reason: pain Fentanyl (Sublimaze) Confirm Administered Dose 100 mcg .ROUTE .STK-MED ONE Stop: 08/20/17 06:59 Hydromorphone HCl (Dilaudid) 0.5 mg IVPUSH ONETIME PRN PRN Reason: Pain (severe 7-10) Last Admin: 08/20/17 18:49 Dose: 0.5 mg Lactated Ringer's (Ringers, Lactated) 1,000 mls @ 125 mls/hr IV ASDIRECTED [facility] Last Admin: 08/20/17 07:18 Dose: 125 mls/hr Cefazolin Sodium/Dextrose 2 gm (/ Premix) 50 mls @ 100 mls/hr IV Q8H [facility] Stop: 08/21/17 07:59 Last Admin: 08/21/17 06:34 Dose: 100 mls/hr Lactated Ringer's (Ringers, Lactated) Confirm Administered Dose 1,000 mls @ as directed .ROUTE .STK-MED ONE Stop: 08/20/17 08:49 Iodine (Iodine 2% Mild Tincture) Confirm Administered Dose 30 ml .ROUTE .STK- MED ONE Stop: 08/20/17 07:22 Last Admin: 08/20/17 08:59 Dose: 18 ml Ketorolac Tromethamine (Toradol) 15 mg IVPUSH Q6H PRN PRN Reason: Pain Last Admin: 08/21/17 10:03 Dose: 15 mg Ketorolac Tromethamine (Toradol) Confirm Administered Dose 30 mg .ROUTE .STK- MED ONE Stop: 08/20/17 08:49 Lidocaine/Sodium Bicarbonate (Buffered Lidocaine 1% In Ns 8.4%) 0.25 ml IDERM ONETIME PRN PRN Reason: Prior to IV Start Stop: 08/20/17 18:00 Lorazepam (Ativan) 0.5 mg PO BID PRN PRN Reason: Anxiety Last Admin: 08/21/17 10:03 Dose: 0.5 mg Magnesium Hydroxide (Milk Of Magnesia) 30 ml PO BID PRN PRN Reason: Constipation Magnesium Oxide (Magnesium Oxide) 800 mg PO ONETIME ONE Stop: 08/21/17 08:59 Last Admin: 08/21/17 09:11 Dose: 800 mg Metoprolol Tartrate (Lopressor) 12.5 mg PO BID [facility] Last Admin: 08/21/17 09:15 Dose: 12.5 mg Midazolam HCl (Versed 1 Mg/Ml) Confirm Administered Dose 2 mg .ROUTE .STK-MED ONE Stop: 08/20/17 06:59 Miscellaneous Information (Remove Patch) 0 ea TRDERM DAILY [facility] Last Admin: 08/21/17 09:18 Dose: 1 ea Miscellaneous Information (Remove Patch) 0 ea TRDERM Q72H [facility] Morphine Sulfate (Morphine) 2 mg IVPUSH Q2H PRN PRN Reason: Breakthrough Pain Multivitamins (Thera) 1 each PO DAILY [facility] Last Admin: 08/21/17 09:11 Dose: 1 each Naloxone HCl (Narcan) 0.1 mg IVPUSH Q5M PRN PRN Reason: Oversedation Nicotine (Habitrol) 21 mg TRDERM DAILY [facility] Last Admin: 08/21/17 12:47 Dose: 21 mg Non-Formulary Medication (Sennosides [Laxative]) 175 mg PO BID [facility] Ondansetron HCl (Zofran) 4 mg IVPUSH Q6H PRN PRN Reason: Nausea/Vomiting Ondansetron HCl (Zofran) Confirm Administered Dose 4 mg .ROUTE .STK-MED ONE Stop: 08/20/17 08:49 Oxycodone HCl (Oxycontin) 10 mg PO ONETIME [facility] Stop: 08/20/17 08:30 Last Admin: 08/20/17 07:38 Dose: 10 mg Oxycodone/Acetaminophen (Percocet 325-5 Mg) 1 - 2 tab PO Q4H PRN PRN Reason: Pain Last Admin: 08/21/17 11:20 Dose: 2 tab Pantoprazole Sodium (Protonix) 40 mg PO BID [facility] Last Admin: 08/21/17 09:11 Dose: 40 mg Phenylephrine HCl (Phenylephrine In Ns 100 Mcg/Ml) Confirm Administered Dose 1 mg .ROUTE .STK-MED ONE Stop: 08/20/17 08:37 Polyethylene Glycol (Miralax) 17 gm PO DAILY [facility] Last Admin: 08/21/17 09:23 Dose: Not Given Pregabalin (Lyrica) 50 mg PO ONETIME [facility] Stop: 08/20/17 08:30 Last Admin: 08/20/17 07:38 Dose: 50 mg Propofol (Diprivan 20 Ml) Confirm Administered Dose 600 mg .ROUTE .STK-MED ONE Stop: 08/20/17 06:59 Rivaroxaban (Xarelto) 10 mg PO DAILY [facility] Last Admin: 08/21/17 09:11 Dose: 10 mg Ropivacaine (Naropin 0.5%) Confirm Administered Dose 30 ml .ROUTE .STK-MED ONE Stop: 08/20/17 08:55 Scopolamine (Transderm-Scop) 1.5 mg TRDERM Q72H PRN PRN Reason: Nausea/Vomiting Senna (Senna) 8.6 mg PO BID PRN PRN Reason: Constipation Sertraline HCl (Zoloft) 150 mg PO DAILY [facility] Last Admin: 08/21/17 09:11 Dose: 150 mg Sodium Chloride (Saline Flush) 10 ml FLUSH ASDIRECTED PRN PRN Reason: Keep Vein Open Tranexamic Acid (Cyklokapron) Confirm Administered Dose 1,000 mg .ROUTE .STK- MED ONE Stop: 08/20/17 07:22 Last Admin: 08/20/17 09:15 Dose: 1,000 mg Vancomycin HCl (Vancomycin) Confirm Administered Dose 2 gm .ROUTE .STK-MED ONE Stop: 08/20/17 07:22 Last Admin: 08/20/17 09:15 Dose: 2 gm Zolpidem Tartrate (Ambien) 10 mg PO BEDTIME [facility] Last Admin: 08/21/17 02:28 Dose: Not Given
--- NOTE | 2017-08-27 09:04 | OR ---
DATE OF OPERATION: 08/20/2017 SURGEON: Harvey Hussein MD OPERATION PERFORMED: Left total knee arthroplasty. PREOPERATIVE DIAGNOSIS: Left knee osteoarthrosis. POSTOPERATIVE DIAGNOSIS: Left knee osteoarthrosis. ANESTHESIA: Local MAC with spinal. ANESTHESIA PROVIDER: Bess Quiros. DOUBLE NEEDLE OPERATOR LOCKSTITCH: 1. Mary Monique PA-C. 2. Oliva Vann LPN. ESTIMATED BLOOD LOSS: 10 mL. COMPLICATIONS: None. CONDITION: Stable. IMPLANTS: 1. [place] size 4 femur. 2. [place] size 3 universal tibial base plate. 3. Yanet size 11 mm PS polyethylene. 4. Yanet size 29 x 9 mm asymmetric patella. DESCRIPTION OF PROCEDURE: The patient was identified in the preop holding area. Proper site was marked and identified by the surgeon. The patient was taken back to the operating theater. After adequate anesthesia, the patient's left lower extremity had a nonsterile tourniquet applied and it was then sterilely prepped and draped in the usual sterile fashion. OR timeout was performed. The patient received 2 g IV Ancef. At this time, left lower extremity was exsanguinated. Tourniquet was insufflated to 300 mmHg. Standard medial parapatellar incision was made. Medial parapatellar arthrotomy was created. Deep fibers of the MCL were raised and anterior fat pad was resected. At this time, attention was turned to the patella. Patella measured 23, it was resected to a 13 for a 29 x 9 mm patella. Drill holes were then drilled and found to be in adequate position. The drill was then drilled in the distal femur and the intramedullary distal femoral cutting guide was then placed. 8 mm was resected off the distal femur and was found to be an adequate resection. Sizing guide was placed. It was found to be a size [place] size 4 femur that was shown on the implant record at the beginning of this dictation. The drill holes were drilled for the epicondylar axis using Whitesides line and epicondyles as reference. At this time, the 4-in- 1 cutting block was placed. An anterior posterior and anterior and posterior chamfer cuts were then completed. The correct size box cut was then placed and the box cut was completed and found to be an adequate resection. Attention was turned to the tibia. The posterior medial lateral retractors were placed. The extramedullary tibial guide was placed. It was placed in the old footprint of the ACL. It was aligned with the center of the ankle and 0 degrees of slope, 9 mm was then resected off the unaffected lateral side. There was found to be an acceptable reduction. At this time, posterior osteophytes were removed along with medial and lateral meniscus. A trial implant was placed with a correct sized tibia that was mentioned at the beginning of the dictation. A Yanet size 11 mm PS polyethylene was then placed. The patient's knee was brought through range of motion. The patella was tracking centrally and was stable to varus and valgus stress. Alignment was found to be roughly at 0 degrees. At this time, cement was mixed on the back table. The tibia was stamped and drilled in proper rotation. All cut surfaces were irrigated with pulse lavage irrigation with Ancef and then completely dried. Once this was completed, then the cement was ready. The universal tibial base plate was cemented in place. Next, the Yanet size [address] and the [place] size 11 mm PS polyethylene was placed. The patient's knee was brought into full extension. Excess cement was removed. The patella was then cemented in place at this time. Tourniquet was deflated. One liter dilute Betadine solution was irrigated through the knee along with 3 L of pulse lavage irrigation with Ancef. Periarticular injection was then completed. The patient's knee was brought through a range of motion. Once the cement had time to set up and it was found to be stable to varus valgus stress, the patella was tracking centrally with full range of motion. At this time, a #2 barbed suture was used for closure of the medial parapatellar arthrotomy. Topical tranexamic acid was placed. 2-0 Vicryl was used subcutaneously, a running 3-0 Monocryl was used subcuticularly. The patient tolerated the procedure well and was sent to the PACU in stable condition. WATSON /[id number]
== END 2017-08-21 13:00 | disposition home or self-care (01) | DRG 470 ==
LOC: JD.SJHSC 06:52 → JD.MS 06:55 → JD.SJHSC 08:54
PROVIDERS: ADMIT Orthopaedic Surgery; ATTEND Orthopaedic Surgery
PROC: 0SRD0J9 Replacement of Left Knee Joint with Synthetic Substitute, Cemented, Open Approach (ICD-10-PCS; principal; 2017-08-20)
PROC: 3E0T3BZ Introduction of Anesthetic Agent into Peripheral Nerves and Plexi, Percutaneous Approach (ICD-10-PCS; 2017-08-20)
DX: M17.12 Unilateral primary osteoarthritis, left knee (principal); E46 Unspecified protein-calorie malnutrition; Z68.22 Body mass index [BMI] 22.0-22.9, adult; K30 Functional dyspepsia; M81.0 Age-related osteoporosis without current pathological fracture; F41.9 Anxiety disorder, unspecified; F32.9 Major depressive disorder, single episode, unspecified; I10 Essential (primary) hypertension; K21.9 Gastro-esophageal reflux disease without esophagitis; R00.0 Tachycardia, unspecified; J45.909 Unspecified asthma, uncomplicated; D64.9 Anemia, unspecified; K62.3 Rectal prolapse; F17.210 Nicotine dependence, cigarettes, uncomplicated; Z79.899 Other long term (current) drug therapy; Z88.0 Allergy status to penicillin; Z90.49 Acquired absence of other specified parts of digestive tract; M25.762 Osteophyte, left knee
CPT/HCPCS: 01402; 36415; 64447; 71045; 71045-26; 73560-26-LT; 73560-LT; 74019; 74019-26; 80053; 83735; 85027; 87641; 97110-GP; 97116-GP; 97162-GP; 97165-GO; 97530-GP; 97535-GO; A9270-GY; C1713; C1776; J0171; J0690; J0697; J1170; J1885; J2250; J2270; J2405; J2704; J2795; J3010; J3370; J3490; J7120

== ENCOUNTER 2018-05-10 11:01 | Inpatient (IN) | payer OTHER ==
[2018-05-10] MEDS ORDERED: Lactated Ringers 1,000 ML IV SCH (11:15)
[2018-05-10] MEDS ORDERED: Lidocaine 1%/Sod Bicarbonate in NS 8.4% 1 ML Syringe IDERM PRN (11:15)
[2018-05-10] MEDS ORDERED: Sodium Chloride 0.9% 10 ML Syringe FLUSH PRN (11:15)
--- NOTE | 2018-05-10 11:47 | PCM.PREANE ---
Preanesthetic Assessment - Anesthesia/Transfusion/Family Hx Anesthesia History: Prior Anesthesia Without Reaction Family History of Anesthesia Reaction: No Transfusion History: No Prior Transfusion(s) Intubation History: Unknown - Review of Systems General: No Symptoms Pulmonary: No Symptoms Cardiovascular: No Symptoms Gastrointestinal: No Symptoms Neurological: No Symptoms Other: Reports: None - Physical Assessment NPO Status Date: 05/09/18 NPO Status Time: 00:00 Pulse: 94 O2 Sat by Pulse Oximetry: 98 Respiratory Rate: 20 Blood Pressure: 125/89 Temperature: 36.8 C Height: 1.7 m Weight: 62 kg ASA Class: 2 Mental Status: Alert & Oriented x3 Airway Class: Mallampati = 1 Dentition: Reports: Normal Dentition, Dentures (top), Broken Tooth/Teeth (front bottom) Thyro-Mental Finger Breadths: 3 Mouth Opening Finger Breadths: 3 ROM/Head Extension: Full Lungs: Clear to Auscultation, Normal Respiratory Effort Cardiovascular: Regular Rate, Regular Rhythm - Lab Values: Laboratory Last Values MRSA (PCR) Negative 05/09/18 15:31 - Allergies Allergies/Adverse Reactions: Allergies Allergy/AdvReac Type Severity Reaction Status Date / Time amoxicillin Allergy Swelling Verified 10/10/17 13:06 Penicillins Allergy Swelling Verified 10/10/17 13:06 venom-honey bee Allergy Anaphylactic Verified 10/10/17 13:06 [bee venom (honey bee)] Shock - Blood Blood Available: No Product(s) Available: None - Anesthesia Plan Pre-Op Medication Ordered: Beta Michael Beta Michael: Metoprolol Med Last Dose Date: 05/09/18 Med Last Dose Time: 22:00 - Acknowledgements Anesthesia Type Planned: General Anesthesia Pt an Appropriate Candidate for the Planned Anesthesia: Yes Alternatives and Risks of Anesthesia Discussed w Pt/Guardian: Yes Pt/Guardian Understands and Agrees with Anesthesia Plan: Yes PreAnesthesia Questionnaire - Past Health History Medical/Surgical History: Denies Medical/Surgical History Other HEENT History: upper denture Cardiovascular History: Reports: Hypertension Other Cardiovascular History: tachycardia Respiratory History: Other Respiratory History: Asthmatic bronchitis Gastrointestinal History: Reports: GERD, Other (See Below) Other Gastrointestinal History: Nonsurgical dumping syndrome, umbilical hernia, rectal prolapse, maldigestion syndrome, elevated liver enzymes, chronic epigastric pain, diarrhea, malnutrition Genitourinary History: Reports: Other (See Below) Other Genitourinary History: repair of vaginal cuff JOB TRAINING SPECIALIST History: Reports: , Other (See Below) Other OB/BYN History: ovarian cyst, pelvic floor dysfunction Musculoskeletal History: Reports: Arthritis, Osteoarthritis, Osteoporosis Other Musculoskeletal History: Right chronic knee pain Neurological History: Reports: None Psychiatric History: Reports: Addiction, Anxiety, Depression Endocrine/Metabolic History: Reports: Osteoporosis Hematologic History: Reports: None, Anemia Immunologic History: Reports: None Oncologic (Cancer) History: Reports: None Dermatologic History: Reports: None - Infectious Disease History Infectious Disease History: Reports: Chicken Pox, Other (See Below) Other Infectious Disease History: scarletina - Past Surgical History Head Surgeries/Procedures: Reports: None HEENT Surgical History: Reports: Tonsillectomy Other HEENT Surgeries/Procedures: myringotomy Cardiovascular Surgical History: Reports: None Respiratory Surgical History: Reports: None GI Surgical History: Reports: Colonoscopy, EGD, Small Bowel Other GI Surgeries/Procedures: umbilical hernia repair on 09/04/16 also a cholecystectomy performed on 09/04/16 Female Surgical History: Reports: Section, Hysterectomy, Oophorectomy Other Female Surgeries/Procedures: left ovary surgically removed Endocrine Surgical History: Reports: None Other Neurological Surgeries/Procedures: Cervical vertebral fusion Musculoskeletal Surgical History: Reports: Other (See Below) Other Musculoskeletal Surgeries/Procedures:: neck surgery-disk replacement Oncologic Surgical History: Reports: None Dermatological Surgical History: Reports: None - SUBSTANCE USE Smoking Status *Q: Current Every Day Smoker Tobacco Use Within Last Twelve Months: Cigarettes Second Hand Smoke Exposure: Yes Days Per Week of Alcohol Use: 0 Number of Drinks Per Day: 0 Total Drinks Per Week: 0 Recreational Drug Use History: No - HOME MEDS Home Medications: Home Meds LORazepam 0.5 mg PO BID PRN 08/31/16 [History] Metoprolol Tartrate 12.5 mg PO BID 08/31/16 [History] Sertraline HCl 150 mg PO DAILY 08/31/16 [History] EPINEPHrine [Epipen] 0.3 mg IM ASDIRECTED PRN 09/04/16 [History] Multivitamin [Multivitamins] 1 cap PO DAILY 09/04/16 [History] Omeprazole 20 mg PO BID 08/16/17 [History] Polyethylene Glycol 3350 [MiraLAX] 17 gm PO DAILY 08/16/17 [History] Zolpidem Tartrate [Ambien] 10 mg PO BEDTIME 08/16/17 [History] Sucralfate [Carafate] 1 gm PO QID 10/10/17 [History] Aspirin 325 mg PO BID #84 tab 10/11/17 [Rx] oxyCODONE 5 - 10 mg PO Q6H PRN #40 tab 10/11/17 [Rx] - CURRENT (IN HOUSE) MEDS Current Meds: Current Medications Lactated Ringer's (Ringers, Lactated) 1,000 mls @ 125 mls/hr IV ASDIRECTED MOY Stop: 05/10/18 23:00 Lidocaine/Sodium Bicarbonate (Buffered Lidocaine 1% In Ns 8.4%) 0.25 ml IDERM ONETIME PRN PRN Reason: Prior to IV Start Stop: 05/10/18 18:00 Sodium Chloride (Saline Flush) 10 ml FLUSH ASDIRECTED PRN PRN Reason: Keep Vein Open Stop: 05/10/18 18:00
[2018-05-10] MEDS ORDERED: Propofol 200 MG/20 ML SDV ONE (11:55)
[2018-05-10] MEDS ORDERED: Ondansetron 4 MG/2 ML SDV ONE (11:55)
[2018-05-10] MEDS ORDERED: Midazolam 1 MG/ML 2 ML SDV ONE (11:56)
[2018-05-10] MEDS ORDERED: fentaNYL 250 MCG/5 ML SDV ONE (11:56)
[2018-05-10] MEDS ORDERED: Lidocaine 1% 4 ML ONE (11:56)
[2018-05-10] MEDS ORDERED: HYDROmorphone 0.5 MG/0.5 ML Syringe ONE ×2 (12:23)
[2018-05-10] MEDS ORDERED: Lactated Ringers 1,000 ML ONE (12:47)
[2018-05-10] MEDS ORDERED: Ketorolac 30 MG/ML SDV ONE (13:12)
--- NOTE | 2018-05-10 13:34 | PCM.POSTAN ---
POST ANESTHESIA ASSESSMENT - MENTAL STATUS Mental Status: Somnolent - VITAL SIGNS Pulse Rate: 82 SaO2: 98 Resp Rate: 10 Blood Pressure: 135/93 Temperature: 36.6 C - RESPIRATORY Respiratory Status: Respiratory Rate WNL, Airway Patent, O2 Saturation Stable, Supplemental Oxygen - CARDIOVASCULAR CV Status: Pulse Rate WNL, Blood Pressure Stable - GASTROINTESTINAL GI Status: No Symptoms - PAIN Pain Score: 0 - POST OP HYDRATION Hydration Status: Adequate & Stable - OBSERVATIONS Free Text/Narrative:: no anesthesia complications noted
[2018-05-10] MEDS: fentaNYL 100 MCG/2 ML SDV IVPUSH PRN ×2 (13:48→13:57)
[2018-05-10] MEDS: HYDROmorphone 0.5 MG/0.5 ML Syringe IVPUSH PRN ×2 (13:51→14:07)
[2018-05-10] MEDS: Nicotine 21 MG/24 Hr Patch TRDERM SCH (15:24)
[2018-05-10] MEDS: Ondansetron 4 MG/2 ML SDV IVPUSH PRN ×2 (15:32→21:54)
--- NOTE | 2018-05-10 15:49 | OR ---
DATE OF OPERATION: 05/10/2018 SURGEON: Carl Holder MD PREOPERATIVE DIAGNOSIS: Recurrent ventral incisional hernia. POSTOPERATIVE DIAGNOSIS: Recurrent ventral incisional hernia. OPERATION PERFORMED: Open repair of recurrent ventral incisional hernia. ANESTHESIA: General. ESTIMATED BLOOD LOSS: Minimum. SPECIMEN: None. OPERATIVE FINDINGS: Really the whole ventral incisional prior area had recurred with hernia spaces all the way up to the upper midline. DESCRIPTION OF PROCEDURE: After adequate preparation, the scar was excised both above and below the umbilicus. This was carried down to the subcutaneous tissue and this did show about a 5 cm midline hernia around the umbilicus. This was dissected free and then the lysis of adhesions to free the bowel wall from the posterior rectus area was done. Examination of the rest of the incision, which extends from almost the xiphoid to the pubic, did not show any evidence of recurrent hernia in the lower midline, but the upper midline had completely come up hard with only a small bridge between the upper and middle hernia. This bridge was taken down. What intestinal adhesions were free to lyse, we freed those up. She did have some that recurred clear down into the pelvis, I did not attempt to free the bowel up any lower than the umbilicus. The wound seemed adequate to have good fascial margins. #1 Prolene suture was used in an interrupted fashion to close this and the upper part was under some tension. I elected not to use mesh for this. The skin was closed with 4-0 Vicryl. MMODAL /[id number]
--- NOTE | 2018-05-10 17:29 | PCM.SN ---
- Free Text/Narrative Note: 37 yo female, s/p open repair of recurrent ventral incisional hernia, performed by Dr. Holder today. I will take over the patient's postop care. I evaluated the patient in her room this afternoon. She was complaining of pain at the incision site, and is requesting pain medication. Tolerating liquid diet, although with decreased appetite. She feels a need to urinate and will try to urinate here shortly. Vitals have been normal. Dressing to midline abdominal wound clean and dry. She does have chronic medical issue, including hypertension, schizophrenia, anxiety. -Will resume home dose of metoprolol, lamictal, Ativan, and aripiprazole. - Will add Percocet to pain regimen, with morphine IV for breakthrough pain. - Nicotine patch. - Plan to add heparin SQ for DVT prophylaxis in the morning. Mark Arias M.D (Siri)., F.A.C.S. General Surgery
[2018-05-10] MEDS: Acetaminophen/oxyCODONE 325-5 MG Tab PO PRN (19:43)
[2018-05-11] MEDS: Acetaminophen/oxyCODONE 325-5 MG Tab PO PRN ×6 (01:40→20:54)
[2018-05-11] MEDS: Ondansetron 4 MG/2 ML SDV IVPUSH PRN ×2 (05:46→10:08)
[2018-05-11] MEDS: Metoprolol Succinate 25 MG Tab.ER PO SCH (09:04)
[2018-05-11] MEDS: lamoTRIgine 100 MG Tab PO SCH (09:06)
[2018-05-11] MEDS: LORazepam 0.5 MG Tab PO PRN ×2 (09:20→19:58)
[2018-05-11] MEDS: Nicotine 21 MG/24 Hr Patch TRDERM SCH ×2 (12:50→15:11)
--- NOTE | 2018-05-11 13:29 | PCM.PN ---
- General Info Date of Service: 05/11/18 Admission Dx/Problem (Free Text): Overnight, no acute events. Requiring morphine for pain control this morning. Requested two (instead of one) tabs of Percocet each time. Pain is located in the abdomen, specifically at two areas in the upper abdomen, lateral to the midline incision. Did receive a dose of Zofran this morning for nausea, no emesis. No nausea currently. She is requesting Boost shakes. Has been using abdominal binder. Ambulating and voiding spontaneously. - Patient Data Vitals - Most Recent: Last Vital Signs Temp 36.8 C 05/11/18 05:39 Pulse 88 05/11/18 09:04 Resp 12 05/11/18 05:39 BP 113/82 05/11/18 09:04 Pulse Ox 93 L 05/11/18 05:39 Weight - Most Recent: 63.957 kg I&O - Last 24 Hours: Intake & Output 05/10/18 05/11/18 05/11/18 22:59 06:59 14:59 Intake Total 520 360 Output Total 200 650 Balance 320 -290 Med Orders - Current: Current Medications Aripiprazole (Abilify) 2 mg PO DAILY [facility] Last Admin: 05/11/18 09:20 Dose: 2 mg Lamotrigine (Lamotrigine) 100 mg PO DAILY [facility] Last Admin: 05/11/18 09:06 Dose: 100 mg Lorazepam (Ativan) 0.5 mg PO BID PRN PRN Reason: Anxiety Last Admin: 05/11/18 09:20 Dose: 0.5 mg Metoprolol Succinate (Toprol Xl) 12.5 mg PO DAILY [facility] Last Admin: 05/11/18 09:04 Dose: 12.5 mg Miscellaneous Information (Remove Patch) 1 ea TRDERM Q24H [facility] Last Admin: 05/11/18 12:50 Dose: 1 ea Morphine Sulfate (Morphine Sulfate) 3 mg IV Q1H PRN PRN Reason: Pain (severe 7-10) Stop: 05/11/18 13:33 Last Admin: 05/11/18 09:06 Dose: 3 mg Nicotine (Habitrol) 21 mg TRDERM Q24H [facility] Last Admin: 05/11/18 12:50 Dose: 21 mg Ondansetron HCl (Zofran) 4 mg IVPUSH Q6H PRN PRN Reason: Nausea/Vomiting Last Admin: 05/11/18 10:08 Dose: 4 mg Oxycodone/Acetaminophen (Percocet 325-5 Mg) 2 tab PO Q4H PRN PRN Reason: Pain Last Admin: 05/11/18 12:46 Dose: 2 tab Discontinued Medications Fentanyl (Sublimaze) Confirm Administered Dose 250 mcg .ROUTE .STK-MED ONE Stop: 05/10/18 11:57 Fentanyl (Sublimaze) 50 mcg IVPUSH Q5M PRN PRN Reason: Pain Stop: 05/10/18 18:00 Last Admin: 05/10/18 13:57 Dose: 50 mcg Hydromorphone HCl (Dilaudid) Confirm Administered Dose 0.5 mg .ROUTE .STK-MED ONE Stop: 05/10/18 12:24 Hydromorphone HCl (Dilaudid) Confirm Administered Dose 0.5 mg .ROUTE .STK-MED ONE Stop: 05/10/18 12:24 Hydromorphone HCl (Dilaudid) 0.5 mg IVPUSH Q10M PRN PRN Reason: Pain (severe 7-10) Stop: 05/10/18 18:00 Last Admin: 05/10/18 14:07 Dose: 0.5 mg Lactated Ringer's (Ringers, Lactated) 1,000 mls @ 125 mls/hr IV ASDIRECTED MOY Stop: 05/10/18 23:00 Last Admin: 05/10/18 11:50 Dose: 125 mls/hr Lidocaine HCl (Xylocaine-Mpf 1%) Confirm Administered Dose 4 mls @ as directed .ROUTE .STK-MED ONE Stop: 05/10/18 11:57 Lactated Ringer's (Ringers, Lactated) Confirm Administered Dose 1,000 mls @ as directed .ROUTE .STK-MED ONE Stop: 05/10/18 12:48 Ketorolac Tromethamine (Toradol) Confirm Administered Dose 30 mg .ROUTE .STK- MED ONE Stop: 05/10/18 13:13 Lidocaine/Sodium Bicarbonate (Buffered Lidocaine 1% In Ns 8.4%) 0.25 ml IDERM ONETIME PRN PRN Reason: Prior to IV Start Stop: 05/10/18 18:00 Last Admin: 05/10/18 11:49 Dose: 0.25 ml Midazolam HCl (Versed 1 Mg/Ml) Confirm Administered Dose 2 mg .ROUTE .STK-MED ONE Stop: 05/10/18 11:57 Ondansetron HCl (Zofran) Confirm Administered Dose 4 mg .ROUTE .STK-MED ONE Stop: 05/10/18 11:56 Oxycodone/Acetaminophen (Percocet 325-5 Mg) 1 tab PO Q4H PRN PRN Reason: Pain Last Admin: 05/11/18 10:08 Dose: 1 tab Propofol (Diprivan 20 Ml) Confirm Administered Dose 200 mg .ROUTE .STK-MED ONE Stop: 05/10/18 11:56 Sodium Chloride (Saline Flush) 10 ml FLUSH ASDIRECTED PRN PRN Reason: Keep Vein Open Stop: 05/10/18 18:00 - Exam General: Alert, Oriented, Cooperative GI/Abdominal Exam: Soft, Tender (appropriately tender), Other (midline incision C/D/I with Dermabond) - Problem List Review Problem List Initiated/Reviewed/Updated: Yes - My Orders Last 24 Hours: My Active Orders 05/10/18 15:00 Nicotine [Habitrol] 21 mg TRDERM Q24H 05/10/18 17:29 Abdominal Binder [OM.PC] Routine 05/10/18 17:30 LORazepam [Ativan] 0.5 mg PO BID PRN 05/11/18 09:00 ARIPiprazole [Abilify] 2 mg PO DAILY Metoprolol Succinate [Toprol XL] 12.5 mg PO DAILY lamoTRIgine 100 mg PO DAILY 05/11/18 12:36 Acetaminophen/oxyCODONE [Percocet 325-5 MG] 2 tab PO Q4H PRN - Plan Plan:: 37 yo female, h/o HTN, anxiety, schizophrenia, POD#1 s/p open repair of recurrent ventral incisional hernia, performed by Dr. Holder. Continued post- op pain. Vitals wnl, excellent UOP. - Pain control: Add Toradol. Continue Percocet, may have two tabs PO q4h PRN. Morphine for breakthrough pain. - HTN: Continue home dose of metoprolol. - Change diet from clear liquids to full liquids with Ensure shakes. - Continue home dose of aripiprazole, lamotrigine, and Ativan. - Nicotine patch. - Encourage IS and ambulation. - SCD's. Add heparin SQ. Mark "Debby" Deny Arias., F.A.C.S. General Surgery
[2018-05-11] MEDS: Ketorolac 30 MG/ML SDV IVPUSH SCH ×2 (14:10→19:57)
[2018-05-11] MEDS: Heparin Sodium 5,000 Units/ML Vial SUBCUT SCH ×2 (14:10→20:56)
--- NOTE | 2018-05-11 19:23 | PCM48HPAN ---
Post Anesthesia Note - EVALUATION WITHIN 48HRS OF ANESTHETIC Vital Signs in Normal Range: Yes Patient Participated in Evaluation: Yes Respiratory Function Stable: Yes Airway Patent: Yes Cardiovascular Function Stable: Yes Hydration Status Stable: Yes (not able to eat yet- drinking) Pain Control Satisfactory: Yes (in pain, but is ok with it. takes pills around the clock) Nausea and Vomiting Control Satisfactory: Yes Mental Status Recovered: Yes Pulse Rate: 85 Resp Rate: 16 Temperature: 98.2 F Blood Pressure: 106/73
[2018-05-12] MEDS: Ketorolac 30 MG/ML SDV IVPUSH SCH ×3 (02:01→13:28)
[2018-05-12] MEDS: Acetaminophen/oxyCODONE 325-5 MG Tab PO PRN ×4 (02:02→15:01)
[2018-05-12] MEDS: Heparin Sodium 5,000 Units/ML Vial SUBCUT SCH ×2 (06:53→13:29)
[2018-05-12] MEDS: Metoprolol Succinate 25 MG Tab.ER PO SCH (09:21)
[2018-05-12] MEDS: lamoTRIgine 100 MG Tab PO SCH (09:22)
[2018-05-12 09:41] VITALS: BP 118/70
[2018-05-12] MEDS: LORazepam 0.5 MG Tab PO PRN (10:51)
[2018-05-12] MEDS: Nicotine 21 MG/24 Hr Patch TRDERM SCH ×2 (10:55→15:06)
--- NOTE | 2018-05-12 13:53 | PCM.PN ---
- General Info Date of Service: 05/12/18 Admission Dx/Problem (Free Text): s/p ventral hernia repair Subjective Update: Overnight, no acute events. Pain controlled with Percocet PRN and scheduled Toradol. No need for IV narcotics. Tolerating full liquid diet. Some nausea, without need for anti-emetics. No emesis. Ambulating and voiding spontaneously. No flatus. IS = 1999. - Patient Data Vitals - Most Recent: Last Vital Signs Temp 36.8 C 05/12/18 02:06 Pulse 91 05/12/18 09:21 Resp 12 05/12/18 02:06 BP 118/70 05/12/18 09:21 Pulse Ox 96 05/12/18 02:06 Weight - Most Recent: 63.82 kg I&O - Last 24 Hours: Intake & Output 05/11/18 05/12/18 05/12/18 22:59 06:59 14:59 Intake Total 600 300 Output Total 700 450 Balance -100 -150 Med Orders - Current: Current Medications Aripiprazole (Abilify) 2 mg PO DAILY [facility] Last Admin: 05/12/18 09:21 Dose: 2 mg Heparin Sodium (Porcine) (Heparin Sodium) 5,000 units SUBCUT Q8H [facility] Last Admin: 05/12/18 13:29 Dose: 5,000 units Ketorolac Tromethamine (Toradol) 30 mg IVPUSH Q6H [facility] Stop: 05/14/18 23:59 Last Admin: 05/12/18 13:28 Dose: 30 mg Lamotrigine (Lamotrigine) 100 mg PO DAILY [facility] Last Admin: 05/12/18 09:22 Dose: 100 mg Lorazepam (Ativan) 0.5 mg PO BID PRN PRN Reason: Anxiety Last Admin: 05/12/18 10:51 Dose: 0.5 mg Metoprolol Succinate (Toprol Xl) 12.5 mg PO DAILY [facility] Last Admin: 05/12/18 09:21 Dose: 12.5 mg Miscellaneous Information (Remove Patch) 1 ea TRDERM Q24H [facility] Last Admin: 05/12/18 10:57 Dose: 1 ea Nicotine (Habitrol) 21 mg TRDERM Q24H [facility] Last Admin: 05/12/18 10:55 Dose: 21 mg Ondansetron HCl (Zofran) 4 mg IVPUSH Q6H PRN PRN Reason: Nausea/Vomiting Last Admin: 05/11/18 10:08 Dose: 4 mg Oxycodone/Acetaminophen (Percocet 325-5 Mg) 2 tab PO Q4H PRN PRN Reason: Pain Last Admin: 05/12/18 10:51 Dose: 2 tab Discontinued Medications Fentanyl (Sublimaze) Confirm Administered Dose 250 mcg .ROUTE .STK-MED ONE Stop: 05/10/18 11:57 Fentanyl (Sublimaze) 50 mcg IVPUSH Q5M PRN PRN Reason: Pain Stop: 05/10/18 18:00 Last Admin: 05/10/18 13:57 Dose: 50 mcg Hydromorphone HCl (Dilaudid) Confirm Administered Dose 0.5 mg .ROUTE .STK-MED ONE Stop: 05/10/18 12:24 Hydromorphone HCl (Dilaudid) Confirm Administered Dose 0.5 mg .ROUTE .STK-MED ONE Stop: 05/10/18 12:24 Hydromorphone HCl (Dilaudid) 0.5 mg IVPUSH Q10M PRN PRN Reason: Pain (severe 7-10) Stop: 05/10/18 18:00 Last Admin: 05/10/18 14:07 Dose: 0.5 mg Lactated Ringer's (Ringers, Lactated) 1,000 mls @ 125 mls/hr IV ASDIRECTED [facility] Stop: 05/10/18 23:00 Last Admin: 05/10/18 11:50 Dose: 125 mls/hr Lidocaine HCl (Xylocaine-Mpf 1%) Confirm Administered Dose 4 mls @ as directed .ROUTE .STK-MED ONE Stop: 05/10/18 11:57 Lactated Ringer's (Ringers, Lactated) Confirm Administered Dose 1,000 mls @ as directed .ROUTE .STK-MED ONE Stop: 05/10/18 12:48 Ketorolac Tromethamine (Toradol) Confirm Administered Dose 30 mg .ROUTE .STK- MED ONE Stop: 05/10/18 13:13 Lidocaine/Sodium Bicarbonate (Buffered Lidocaine 1% In Ns 8.4%) 0.25 ml IDERM ONETIME PRN PRN Reason: Prior to IV Start Stop: 05/10/18 18:00 Last Admin: 05/10/18 11:49 Dose: 0.25 ml Midazolam HCl (Versed 1 Mg/Ml) Confirm Administered Dose 2 mg .ROUTE .STK-MED ONE Stop: 05/10/18 11:57 Morphine Sulfate (Morphine Sulfate) 3 mg IV Q1H PRN PRN Reason: Pain (severe 7-10) Stop: 05/11/18 13:33 Last Admin: 05/11/18 09:06 Dose: 3 mg Ondansetron HCl (Zofran) Confirm Administered Dose 4 mg .ROUTE .STK-MED ONE Stop: 05/10/18 11:56 Oxycodone/Acetaminophen (Percocet 325-5 Mg) 1 tab PO Q4H PRN PRN Reason: Pain Last Admin: 05/11/18 10:08 Dose: 1 tab Propofol (Diprivan 20 Ml) Confirm Administered Dose 200 mg .ROUTE .STK-MED ONE Stop: 05/10/18 11:56 Sodium Chloride (Saline Flush) 10 ml FLUSH ASDIRECTED PRN PRN Reason: Keep Vein Open Stop: 05/10/18 18:00 - Exam General: Alert, Oriented, Cooperative, No Acute Distress GI/Abdominal Exam: Soft, No Distention, Other (midline incisions C/D/I with Dermabond. mildly tender. ) - Problem List & Annotations (1) Ventral hernia, recurrent SNOMED Code(s): 246974057 Code(s): K43.2 - INCISIONAL HERNIA WITHOUT OBSTRUCTION OR GANGRENE Status: Acute Current Visit: Yes - Problem List Review Problem List Initiated/Reviewed/Updated: Yes - My Orders Last 24 Hours: My Active Orders 05/11/18 13:29 Incentive Spirometry [RT Incentive Spirometry] [RC] ASDIRECTED 05/11/18 13:30 Heparin Sodium 5,000 units SUBCUT Q8H 05/11/18 13:54 Ambulate [RC] 09,15,21 05/11/18 14:00 Ketorolac [Toradol] 30 mg IVPUSH Q6H 05/11/18 Dinner Full Liquid Diet [DIET] 05/13/18 07:00 CBC W/O DIFF,HEMOGRAM [HEME] MOTH@0700 05/16/18 07:00 CBC W/O DIFF,HEMOGRAM [HEME] MOTH@0700 05/20/18 07:00 CBC W/O DIFF,HEMOGRAM [HEME] MOTH@0700 05/23/18 07:00 CBC W/O DIFF,HEMOGRAM [HEME] MOTH@0700 05/27/18 07:00 CBC W/O DIFF,HEMOGRAM [HEME] MOTH@0700 05/30/18 07:00 CBC W/O DIFF,HEMOGRAM [HEME] MOTH@07 - Plan Plan:: 37 yo female, h/o HTN, anxiety, active smoker, POD#2 s/p open repair of recurrent ventral incisional hernia, performed by Dr. Holder. Improvement in pain. - OK for discharge home. - Will send home on Percocet. May also use ibuprofen 800 mg po TID. - Continue home meds (metoprolol, aripiprazole, lamotrigine, and Ativan). - Patient was counseled on smoking cessation. She is interested in continued use of nicotine patch. Will provide her information on smoking cessation and programs available here in town. - Post-op wound care, activity limitations, and return precautions were discussed. Mark Arias M.D ([place])., F.A.C.S. General Surgery
--- NOTE | 2018-05-12 13:59 | PCM.DCSUM1 ---
Discharge Summary - Hospital Course Free Text/Narrative:: 37 yo female, underwent elective open repair of recurrent ventral incisional hernia, performed by Dr. Holder on 10May2018. Post-op, she was given IV pain medication, which was transitioned to oral narcotics. Pain improved during her hospital course. Her diet was also slowly advanced. During her hospitalization, she was given SQ heparin for VTE prophylaxis. By POD#2, she met discharge criteria. Diagnosis: Stroke: No - Discharge Data Discharge Date: 05/12/18 Discharge Disposition: Home, Self-Care 01 Condition: Good - Discharge Diagnosis/Problem(s) (1) Ventral hernia, recurrent SNOMED Code(s): 053438904 ICD Code: K43.2 - INCISIONAL HERNIA WITHOUT OBSTRUCTION OR GANGRENE Status : Acute Current Visit: Yes - Patient Summary/Data Operative Procedure(s) Performed: open repair of recurrent ventral incisional hernia Complications: None - Patient Instructions Diet: Regular Diet as Tolerated Activity: No Lifting Over 10 Pounds (for 6 weeks after surgery), No Strenuous Activities (for 6 weeks after surgery) Showering/Bathing: May Shower, No Showering, No Tub Bathing/Swimming Notify Provider of: Fever, Increased Pain, Swelling and Redness, Drainage, Nausea and/or Vomiting Other/Special Instructions: May use abdominal binder for comfort. In addition to Percocet, may also use Motrin (ibuprofen) 800 mg by mouth every 8 hours. Take with food. - Discharge Plan *PRESCRIPTION DRUG MONITORING PROGRAM REVIEWED*: Not Applicable *COPY OF PRESCRIPTION DRUG MONITORING REPORT IN PATIENT KARISHMA: Not Applicable Prescriptions/Med Rec: Acetaminophen/oxyCODONE [Percocet 325-5 MG] 1 - 2 tab PO Q4H PRN #30 tablet PRN Reason: Pain Docusate Sodium [Colace] 100 mg PO BID #30 capsule Home Medications: Home Meds LORazepam 0.5 mg PO BID PRN 08/31/16 [History] Metoprolol Tartrate 12.5 mg PO BID 08/31/16 [History] EPINEPHrine [Epipen] 0.3 mg IM ASDIRECTED PRN 09/04/16 [History] ARIPiprazole [Abilify] 2 mg PO DAILY 05/10/18 [History] Sennosides [Ex-Lax Maximum Strength] 1 tab PO ASDIRECTED PRN 05/10/18 [History] hydrOXYzine HCl [hydrOXYzine] 1 - 2 tab PO BEDTIME PRN 05/10/18 [History] lamoTRIgine [Lamictal] 150 mg PO DAILY 05/10/18 [History] Acetaminophen/oxyCODONE [Percocet 325-5 MG] 1 - 2 tab PO Q4H PRN #30 tablet [Rx] Docusate Sodium [Colace] 100 mg PO BID #30 capsule 05/12/18 [Rx] Referrals: Carl Holder MD [Physician] - (Follow-up in [address] Holder in the General Surgery clinic.) - Discharge Summary/Plan Comment DC Time >30 min.: Yes - Patient Data Vitals - Most Recent: Last Vital Signs Temp 36.6 C 05/12/18 09:20 Pulse 91 05/12/18 09:21 Resp 16 05/12/18 09:20 BP 118/70 05/12/18 09:21 Pulse Ox 96 05/12/18 09:20 Weight - Most Recent: 63.82 kg I&O - Last 24 hours: Intake & Output 05/11/18 05/12/18 05/12/18 22:59 06:59 14:59 Intake Total 600 300 Output Total 700 450 Balance -100 -150 Med Orders - Current: Current Medications Aripiprazole (Abilify) 2 mg PO DAILY [facility] Last Admin: 05/12/18 09:21 Dose: 2 mg Heparin Sodium (Porcine) (Heparin Sodium) 5,000 units SUBCUT Q8H [facility] Last Admin: 05/12/18 13:29 Dose: 5,000 units Ketorolac Tromethamine (Toradol) 30 mg IVPUSH Q6H [facility] Stop: 05/14/18 23:59 Last Admin: 05/12/18 13:28 Dose: 30 mg Lamotrigine (Lamotrigine) 100 mg PO DAILY [facility] Last Admin: 05/12/18 09:22 Dose: 100 mg Lorazepam (Ativan) 0.5 mg PO BID PRN PRN Reason: Anxiety Last Admin: 05/12/18 10:51 Dose: 0.5 mg Metoprolol Succinate (Toprol Xl) 12.5 mg PO DAILY [facility] Last Admin: 05/12/18 09:21 Dose: 12.5 mg Miscellaneous Information (Remove Patch) 1 ea TRDERM Q24H [facility] Last Admin: 05/12/18 10:57 Dose: 1 ea Nicotine (Habitrol) 21 mg TRDERM Q24H [facility] Last Admin: 05/12/18 10:55 Dose: 21 mg Ondansetron HCl (Zofran) 4 mg IVPUSH Q6H PRN PRN Reason: Nausea/Vomiting Last Admin: 05/11/18 10:08 Dose: 4 mg Oxycodone/Acetaminophen (Percocet 325-5 Mg) 2 tab PO Q4H PRN PRN Reason: Pain Last Admin: 05/12/18 10:51 Dose: 2 tab Discontinued Medications Fentanyl (Sublimaze) Confirm Administered Dose 250 mcg .ROUTE .STK-MED ONE Stop: 05/10/18 11:57 Fentanyl (Sublimaze) 50 mcg IVPUSH Q5M PRN PRN Reason: Pain Stop: 05/10/18 18:00 Last Admin: 05/10/18 13:57 Dose: 50 mcg Hydromorphone HCl (Dilaudid) Confirm Administered Dose 0.5 mg .ROUTE .STK-MED ONE Stop: 05/10/18 12:24 Hydromorphone HCl (Dilaudid) Confirm Administered Dose 0.5 mg .ROUTE .STK-MED ONE Stop: 05/10/18 12:24 Hydromorphone HCl (Dilaudid) 0.5 mg IVPUSH Q10M PRN PRN Reason: Pain (severe 7-10) Stop: 05/10/18 18:00 Last Admin: 05/10/18 14:07 Dose: 0.5 mg Lactated Ringer's (Ringers, Lactated) 1,000 mls @ 125 mls/hr IV ASDIRECTED [facility] Stop: 05/10/18 23:00 Last Admin: 05/10/18 11:50 Dose: 125 mls/hr Lidocaine HCl (Xylocaine-Mpf 1%) Confirm Administered Dose 4 mls @ as directed .ROUTE .STK-MED ONE Stop: 05/10/18 11:57 Lactated Ringer's (Ringers, Lactated) Confirm Administered Dose 1,000 mls @ as directed .ROUTE .STK-MED ONE Stop: 05/10/18 12:48 Ketorolac Tromethamine (Toradol) Confirm Administered Dose 30 mg .ROUTE .STK- MED ONE Stop: 05/10/18 13:13 Lidocaine/Sodium Bicarbonate (Buffered Lidocaine 1% In Ns 8.4%) 0.25 ml IDERM ONETIME PRN PRN Reason: Prior to IV Start Stop: 05/10/18 18:00 Last Admin: 05/10/18 11:49 Dose: 0.25 ml Midazolam HCl (Versed 1 Mg/Ml) Confirm Administered Dose 2 mg .ROUTE .STK-MED ONE Stop: 05/10/18 11:57 Morphine Sulfate (Morphine Sulfate) 3 mg IV Q1H PRN PRN Reason: Pain (severe 7-10) Stop: 05/11/18 13:33 Last Admin: 05/11/18 09:06 Dose: 3 mg Ondansetron HCl (Zofran) Confirm Administered Dose 4 mg .ROUTE .STK-MED ONE Stop: 05/10/18 11:56 Oxycodone/Acetaminophen (Percocet 325-5 Mg) 1 tab PO Q4H PRN PRN Reason: Pain Last Admin: 05/11/18 10:08 Dose: 1 tab Propofol (Diprivan 20 Ml) Confirm Administered Dose 200 mg .ROUTE .STK-MED ONE Stop: 05/10/18 11:56 Sodium Chloride (Saline Flush) 10 ml FLUSH ASDIRECTED PRN PRN Reason: Keep Vein Open Stop: 05/10/18 18:00
== END 2018-05-12 15:10 | disposition home or self-care (01) | DRG 355 ==
LOC: JD.MS 11:01
PROVIDERS: ADMIT Surgery; ATTEND Surgery
PROC: 0WQF0ZZ Repair Abdominal Wall, Open Approach (ICD-10-PCS; principal; 2018-05-10)
DX: K43.2 Incisional hernia without obstruction or gangrene (principal); K52.9 Noninfective gastroenteritis and colitis, unspecified; K21.9 Gastro-esophageal reflux disease without esophagitis; M17.0 Bilateral primary osteoarthritis of knee; F17.210 Nicotine dependence, cigarettes, uncomplicated; I10 Essential (primary) hypertension; F41.9 Anxiety disorder, unspecified; F20.9 Schizophrenia, unspecified; M81.0 Age-related osteoporosis without current pathological fracture; G89.29 Other chronic pain; D64.9 Anemia, unspecified; Z88.0 Allergy status to penicillin; Z91.030 Bee allergy status; Z79.899 Other long term (current) drug therapy; Z98.1 Arthrodesis status; Z88.1 Allergy status to other antibiotic agents; Z90.710 Acquired absence of both cervix and uterus
CPT/HCPCS: 00752; 81025; 87641; 94760; A9270-GY; J1170; J1644; J1885; J2001; J2250; J2270; J2405; J2704; J3010; J7120